=== PATIENT | female | born 1945 | race Caucasian/White ===

== ENCOUNTER 2016-09-23 18:02 | Observation (INO) | payer MEDICARE, MEDICAID ==
[2016-09-23 18:52] LABS: Hematocrit 44 % (35-47); Hemoglobin 14.1 g/dl (12.0-16.0); Mean Corpuscular HGB Conc 32 g/dl (31-36); Mean Corpuscular Hemoglobin 27 pg (27-31); Mean Corpuscular Volume 83 fL (80-97); Mean Platelet Volume 9 um3 (7.4-10.4); Red Blood Count 5.31 10^6/ul (4.0-5.4); Red Cell Distribution Width 15 % (10.5-15); White Blood Count 16.6 10^3/ul (3.5-10.8)
[2016-09-23] MEDS ORDERED: NS 0.9% 1000 ML* 1,000 ML IV ONE ×2 (18:52→22:34)
[2016-09-23] MEDS ORDERED: Ondansetron INJ* 2 MG/ML VIAL IV ONE ×2 (18:52→20:06)
[2016-09-23 19:07] LABS: ALT 15 U/L (7-52); AST 20 U/L (13-39); Albumin 3.6 g/dL (3.2-5.2); Alkaline Phosphatase 156 U/L (34-104); Anion Gap 6 mmol/L (2-11); BUN/Creatinine Ratio 14.3 (8-20); Blood Urea Nitrogen 11 mg/dL (6-24); C Reactive Protein 4.49 mg/L (< 5.00); CO2 Carbon Dioxide 24 mmol/L (22-32); Calcium 9.3 mg/dL (8.6-10.3); Chloride 106 mmol/L (101-111); EGFR African American 94.5 (>60); EGFR Non-African American 73.5 (>60); Globulin 3.3 g/dL (2-4); Glucose 132 mg/dL (70-100); Lipase < 10 U/L (11.0-82.0); Potassium 4.1 mmol/L (3.5-5.0); Sodium 136 mmol/L (133-145); Total Protein 6.9 g/dL (6.4-8.9)
[2016-09-23 19:09] LABS: Troponin I 0.01 ng/mL (<0.04)
[2016-09-23] MEDS ORDERED: Iodixanol* (CONTRAST) 320 MG/ML 100 ML SDV IV ONE (19:47)
[2016-09-23] MEDS ORDERED: Morphine INJ* 4 MG/ML 1 ML CARPUJECT IV ONE ×3 (20:06→22:42)
--- NOTE | 2016-09-23 22:00 | RAD ---
INDICATION: Diffuse abdominal and RIGHT lower quadrant pain. Vomiting. Post cholecystectomy and appendectomy. Post hysterectomy. COMPARISON: June 16, 2015 CT. TECHNIQUE: Multidetector CT images were obtained from the lung bases to the ischial tuberosities with 100 mL Visipaque 320 IV and oral contrast. Multiplanar reformation. REPORT: Minimal basilar subsegmental atelectasis. Cardiomegaly. Diffuse decreased density of the liver consistent with fatty infiltration. No focal hepatic lesion or biliary dilatation. Post cholecystectomy. Advanced fatty replacement of the pancreas. No focal pancreatic lesion, duct dilatation, or inflammatory change. Small splenule inferior to the unremarkable dominant spleen. Negative for CT abnormality of the upper GI or small bowel. Post appendectomy. Moderately severe diverticulosis of the colon most prominent at the proximal sigmoid colon. Negative for acute diverticulitis. Negative for ascites, free air, or significant hernia. Normal adrenal glands. Small cortical cyst mid pole RIGHT kidney. No suspicious renal lesions or hydronephrosis. Symmetric renal contrast excretion. Unremarkable ureters and urinary bladder. Post hysterectomy. Unremarkable adnexal regions. Negative for lymphadenopathy. Atherosclerotic plaque results in approximate 30% short segment stenosis at the proximal LEFT common iliac artery. Negative for aortoiliac aneurysm. Physiologic distention of the IVC. Negative for suspicious osseous lesions. L4-L5 and L5-S1 annular disc bulges noted. IMPRESSION: 1. Fatty infiltration of the liver and advanced fatty replacement of the pancreas. 2. Moderately severe diverticulosis of the colon most prominent at the proximal sigmoid colon. Negative for acute diverticulitis. 3. Negative for obstructive uropathy.
--- NOTE | 2016-09-23 23:08 | ED ---
Roger Mason Erika, scribed for Ap Dennis MD on 09/23/16 at 1919 . Abdominal Pain/Female - HPI Summary HPI Summary: Patient is a 71-year-old female presenting to the ED with a CC of abdominal pain starting at 15:00 today. Pt reports intermittent diffuse abdominal pain, which now has begun to radiate to her back. She rates a pain a 10/10 at its worst, improved currently. Pt reports she has had a BM today before 15:00, and states she has been passing gas since after 15:00. Associated symptoms include vomiting also starting at 15:00. Pt also reports left pedal edema, which is new. Pt denies fever, chills, and lightheadedness. Hx PE, DVT a long time ago - pt takes a blood thinner. Denies Hx CHF. PSHx cholecystectomy, appendectomy. Denies PSHx . - History of Current Complaint Chief Complaint: EDAbdPain Stated Complaint: ABD PAIN Time Seen by Provider: 09/23/16 18:31 Hx Obtained From: Patient Onset/Duration: Lasting Hours, Still Present Timing: Minutes Severity Currently: Moderate Pain Intensity: 10 - at worst Pain Scale Used: 0-10 Numeric Location: Diffuse Radiates: Yes Radiates to: Back Aggravating Factor(s): Nothing Alleviating Factor(s): Nothing Associated Signs and Symptoms: Positive: Nausea, Vomiting. Negative: Fever Allergies/Adverse Reactions: Allergies Allergy/AdvReac Type Severity Reaction Status Date / Time Metoclopramide [From Reglan] Allergy Severe Shortness Verified 09/24/15 10:50 of Breath Celecoxib [From Celebrex] Allergy Intermediate Rash Verified 09/24/15 10:50 Cephalexin [From Keflex] Allergy Intermediate Rash Verified 09/24/15 10:50 Ciprofloxacin [From Cipro] Allergy Intermediate Rash Verified 09/24/15 10:50 Aspirin Allergy Unknown Verified 09/24/15 10:50 Reaction Details Ceftriaxone [From Rocephin] AdvReac Intermediate PALPITATIONS, Verified 10:50 HALLUCINATION PMH/Surg Hx/FS Hx/Imm Hx Endocrine/Hematology History: Reports: Hx Diabetes - no meds-diet controlled Denies: Hx Anticoagulant Therapy, Hx Systemic Lupus Erythematosus, Hx Thyroid Disease, Hx Anemia Cardiovascular History: Reports: Hx Hypercholesterolemia Denies: Hx Aneurysm, Hx Angina, Hx Auto Implanted Cardiovert Defib, Hx Congestive Heart Failure, Hx Hypertension, Hx Pacemaker/ICD, Other Cardiovascular Problems/Disorders Respiratory History: Reports: Hx Asthma - environmental allergies, Hx Pulmonary Embolism, Hx Seasonal Allergies Denies: Hx Chronic Obstructive Pulmonary Disease (COPD), Hx Sleep Apnea GI History: Reports: Hx Gall Bladder Disease, Hx Gastroesophageal Reflux Disease Denies: Hx Cirrhosis, Hx Crohn's Disease, Hx Diverticulosis, Hx Irritable Bowel, Hx Ulcer History: Reports: Hx Renal Disease, Other Problems/Disorders - renal disease Denies: Hx Kidney Infection, Hx Kidney Stones Musculoskeletal History: Reports: Hx Arthritis, Hx Osteoporosis - 11/01/12 Denies: Hx Gout Sensory History: Reports: Hx Contacts or Glasses Denies: Hx Deafness, Hx Hearing Aid Opthamlomology History: Reports: Hx Contacts or Glasses Neurological History: Reports: Hx Migraine, Other Neuro Impairments/Disorders - migraines Denies: Hx Dementia, Hx Seizures Psychiatric History: Denies: Hx Anxiety, Hx Eating Disorder, Hx Depression, Hx Schizophrenia, Hx Suicide Attempt, Hx Substance Abuse - Surgical History Surgery Procedure, Year, and Place: hysterectomy, rt breast biopsy, cholecystectomy, appendectomy Hx Anesthesia Reactions: No - Immunization History Date of Tetanus Vaccine: Unk Date of Influenza Vaccine: 05/26 Infectious Disease History: No Infectious Disease History: Denies: Hx Hepatitis, Hx Human Immunodeficiency Virus (HIV), Hx Tuberculosis , Traveled Outside the [place] in Last 30 Days - Family History Family History: Denies FHx breast cancer - Social History Alcohol Use: None Hx Substance Use: No Substance Use Type: Reports: None Hx Tobacco Use: Yes Smoking Status (MU): Former Smoker Review of Systems Negative: Fever, Chills Positive: Abdominal Pain, Vomiting Positive: Edema - left All Other Systems Reviewed And Are Negative: Yes Physical Exam Triage Information Reviewed: Yes Vital Signs On Initial Exam: Initial Vitals Temp Pulse Resp BP Pulse Ox 97.6 F 106 20 149/81 96 09/23/16 18:05 09/23/16 18:05 09/23/16 18:05 09/23/16 18:05 09/23/16 18:05 Vital Signs Reviewed: Yes Appearance: Positive: Well-Appearing, No Pain Distress Skin: Positive: Warm, Skin Color Reflects Adequate Perfusion, Dry Head/Face: Positive: Normal Head/Face Inspection Eyes: Positive: EOMI, [place] ENT: Positive: Normal ENT inspection Neck: Positive: Supple, Nontender Respiratory/Lung Sounds: Positive: Clear to Auscultation, Breath Sounds Present Cardiovascular: Positive: Tachycardia - at 106 bpm on triage Abdomen Description: Positive: Soft, Other: - Diffuse abdominal tenderness Bowel Sounds: Positive: Hypoactive Musculoskeletal: Positive: Strength/ROM Intact, Other - Pedal edema worse on the left Neurological: Positive: Normal, Sensory/Motor Intact, Alert, Oriented to Person Place, Time Psychiatric: Positive: Affect/Mood Appropriate - Martina Coma Scale Coma Scale Total: 15 Diagnostics - Vital Signs Vital Signs Temp Pulse Resp BP Pulse Ox 09/23/16 18:05 97.6 F 106 20 149/81 96 - Laboratory Lab Results: Lab Results 09/23/16 09/23/16 09/23/16 Range/Units 18:30 18:30 18:30 WBC 16.6 H (3.5-10.8) 10^3/ul RBC 5.31 (4.0-5.4) 10^6/ul Hgb 14.1 (12.0-16.0) g/dl Hct 44 (35-47) % MCV 83 (80-97) fL MCH 27 (27-31) pg MCHC 32 (31-36) g/dl RDW 15 (10.5-15) % Plt Count 213 (150-450) 10^3/ul MPV 9 (7.4-10.4) um3 Neut % (Auto) 87.6 H (38-83) % Lymph % (Auto) 7.0 L (25-47) % [place] % (Auto) 4.8 (1-9) % Eos % (Auto) 0.3 (0-6) % Baso % (Auto) 0.3 (0-2) % Absolute Neuts (auto) 14.5 H (1.5-7.7) 10^3/ul Absolute Lymphs (auto) 1.2 (1.0-4.8) 10^3/ul Absolute Monos (auto) 0.8 (0-0.8) 10^3/ul Absolute Eos (auto) 0 (0-0.6) 10^3/ul Absolute Basos (auto) 0.1 (0-0.2) 10^3/ul Absolute Nucleated RBC 0 10^3/ul Nucleated RBC % 0 INR (Anticoag Therapy) 1.51 H (0.89-1.11) APTT 32.5 (26.0-36.3) seconds Sodium 136 (133-145) mmol/L Potassium 4.1 (3.5-5.0) mmol/L Chloride 106 (101-111) mmol/L Carbon Dioxide 24 (22-32) mmol/L Anion Gap 6 (2-11) mmol/L BUN 11 (6-24) mg/dL Creatinine 0.77 (0.51-0.95) mg/dL Est GFR ( Amer) 94.5 (>60) Est GFR (Non-Af Amer) 73.5 (>60) BUN/Creatinine Ratio 14.3 (8-20) Glucose 132 H (70-100) mg/dL Lactic Acid (0.5-2.0) mmol/L Calcium 9.3 (8.6-10.3) mg/dL Total Bilirubin 0.50 (0.2-1.0) mg/dL AST 20 (13-39) U/L ALT 15 (7-52) U/L Alkaline Phosphatase 156 H (34-104) U/L Troponin I 0.01 (<0.04) ng/mL C-Reactive Protein 4.49 (< 5.00) mg/L B-Natriuretic Peptide ( - 100) pg/mL Total Protein 6.9 (6.4-8.9) g/dL Albumin 3.6 (3.2-5.2) g/dL Globulin 3.3 (2-4) g/dL Albumin/Globulin Ratio 1.1 (1-3) Lipase < 10 L (11.0-82.0) U/L 09/23/16 09/23/16 Range/Units 18:30 18:30 WBC (3.5-10.8) 10^3/ul RBC (4.0-5.4) 10^6/ul Hgb (12.0-16.0) g/dl Hct (35-47) % MCV (80-97) fL MCH (27-31) pg MCHC (31-36) g/dl RDW (10.5-15) % Plt Count (150-450) 10^3/ul MPV (7.4-10.4) um3 Neut % (Auto) (38-83) % Lymph % (Auto) (25-47) % [place] % (Auto) (1-9) % Eos % (Auto) (0-6) % Baso % (Auto) (0-2) % Absolute Neuts (auto) (1.5-7.7) 10^3/ul Absolute Lymphs (auto) (1.0-4.8) 10^3/ul Absolute Monos (auto) (0-0.8) 10^3/ul Absolute Eos (auto) (0-0.6) 10^3/ul Absolute Basos (auto) (0-0.2) 10^3/ul Absolute Nucleated RBC 10^3/ul Nucleated RBC % INR (Anticoag Therapy) (0.89-1.11) APTT (26.0-36.3) seconds Sodium (133-145) mmol/L Potassium (3.5-5.0) mmol/L Chloride (101-111) mmol/L Carbon Dioxide (22-32) mmol/L Anion Gap (2-11) mmol/L BUN (6-24) mg/dL Creatinine (0.51-0.95) mg/dL Est GFR ( Amer) (>60) Est GFR (Non-Af Amer) (>60) BUN/Creatinine Ratio (8-20) Glucose (70-100) mg/dL Lactic Acid 1.0 (0.5-2.0) mmol/L Calcium (8.6-10.3) mg/dL Total Bilirubin (0.2-1.0) mg/dL AST (13-39) U/L ALT (7-52) U/L Alkaline Phosphatase (34-104) U/L Troponin I (<0.04) ng/mL C-Reactive Protein (< 5.00) mg/L B-Natriuretic Peptide 19 ( - 100) pg/mL Total Protein (6.4-8.9) g/dL Albumin (3.2-5.2) g/dL Globulin (2-4) g/dL Albumin/Globulin Ratio (1-3) Lipase (11.0-82.0) U/L Result Diagrams: 09/23/16 18:30 09/23/16 18:30 Lab Statement: Any lab studies that have been ordered have been reviewed, and results considered in the medical decision making process. - CT CT A/P W/ CT Interpretation Completed By: Radiologist - IMPRESSION: 1. Fatty infiltration of the liver and advanced fatty replacement of the pancreas. 2. Moderately severe diverticulosis of the colon most prominent at the proximal sigmoid colon. Negative for acute diverticulitis. 3. Negative for obstructive uropathy. Abdominal Pain Fem Course/Dx - Course Course Of Treatment: ABDOMINAL PAIN CONTINUES AFTER SEVERAL DOSES OF IV PAIN MEDICATIONS IN ED. DISCUSSED RESULTS WITH PATIENT. ADMIT HOSPITALIST STABLE. - Diagnoses Provider Diagnoses: Abdominal pain Discharge - Discharge Plan Condition: Stable Disposition: ADMITTED TO [facility] Referrals: Ap Meredith MD [Primary Care Provider] - The documentation as recorded by the Roger beavers Erika accurately reflects the service I personally performed and the decisions made by , Ap Dennis MD.
[2016-09-23 23:27] LABS: Urine Bacteria Absent (Absent); Urine Bilirubin Negative (Negative); Urine Glucose Negative (Negative); Urine Nitrite Negative (Negative)
[2016-09-24] MEDS ORDERED: Ondansetron INJ* 2 MG/ML VIAL IV PRN (01:22)
[2016-09-24] MEDS ORDERED: NS 0.9% 1000 ML* 1,000 ML IV SCH (01:30)
[2016-09-24] MEDS ORDERED: Piperac/Tazob 3.375 gm in NS* 3.375 GM/100 ML BAG IVPB ONE (01:30)
[2016-09-24] MEDS: Morphine INJ* 2 MG/ML 1 ML CARPUJECT IV PRN ×3 (01:42→15:53)
[2016-09-24] MEDS ORDERED: Heparin VIAL(*) 5000 UNITS/ML VIAL (FIVE THOUSAND) SUBCUT SCH (06:00)
[2016-09-24] MEDS: Piperac/Tazob 3.375 gm in NS* 3.375 GM/100 ML BAG IVPB SCH ×3 (06:14→21:38)
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
[2016-09-24] MEDS: Acetaminophen TAB* 325 MG PO PRN (12:31)
[2016-09-24] MEDS ORDERED: Magnesium Hydroxide LIQ* 30 ML UDC PO ONE (12:43)
--- NOTE | 2016-09-24 12:49 | PN ---
Subjective Date of Service: 09/24/16 Interval History: pt c/o mild abd "soreness"- diffuse. for the past 3 days has had daily BM's , but small and hard and justifies it with "but I'm not eating that much". Had breakfast , but vomited eggs-subsequently had no problems finishing up her meal. stated that "sometimes things don't agree with my stomach". Vague historian Objective Active Medications: Acetaminophen (Tylenol Tab*) 650 mg PO Q4H PRN PRN Reason: FEVER/PAIN Last Admin: 09/24/16 12:31 Dose: 650 mg Amitriptyline HCl (Elavil Tab*) 75 mg PO BEDTIME ROSEANNA Docusate Sodium (Colace Cap*) 100 mg PO BID ROSEANNA Piperacillin Sod/Tazobactam Sod (Zosyn 3.375 Gm In Ns Premix*) 3.375 gm in 100 mls @ 25 mls/hr IVPB Q8H ROSEANNA Last Admin: 09/24/16 06:14 Dose: 25 mls/hr Magnesium Hydroxide (Milk Of Magntree Liq*) 30 ml PO ONCE ONE Stop: 09/24/16 12:44 Morphine Sulfate (Morphine Inj (Syringe)*) 2 mg IV Q2H PRN PRN Reason: PAIN Last Admin: 09/24/16 04:27 Dose: 2 mg Ondansetron HCl (Zofran Inj*) 4 mg IV Q4H PRN PRN Reason: NAUSEA Last Admin: 09/24/16 01:42 Dose: 4 mg Rivaroxaban (Xarelto (*)) 20 mg PO DAILY [facility] Vital Signs 09/24/16 09/24/16 09/24/16 02:00 04:27 05:25 Temperature Pulse Rate 94 Respiratory 20 18 Rate Blood Pressure 128/57 (mmHg) O2 Sat by Pulse 93 Oximetry 09/24/16 09/24/16 09/24/16 05:28 05:30 07:23 Temperature 98.7 F 97.7 F Pulse Rate 89 92 Respiratory 18 18 17 Rate Blood Pressure 129/62 121/64 (mmHg) O2 Sat by Pulse 96 96 Oximetry 09/24/16 08:00 Temperature Pulse Rate Respiratory 14 Rate Blood Pressure (mmHg) O2 Sat by Pulse Oximetry Oxygen Devices in Use Now: None Appearance: 71 obsese F in nAD, aAOx3 Eyes: No Scleral Icterus, PERRLA Ears/Nose/Mouth/Throat: NL Teeth, Lips, Gums, Mucous Membranes Moist Neck: NL Appearance and Movements; NL JVP, Trachea Midline Respiratory: Symmetrical Chest Expansion and Respiratory Effort, Clear to Auscultation Cardiovascular: NL Sounds; No Murmurs; No JVD, RRR Abdominal: - - mild diffuse tendereness, no rebound, no guarding, BS+ Lymphatic: No Cervical Adenopathy Extremities: No Edema, No Clubbing, Cyanosis Skin: No Rash or Ulcers, No Nodules or Sclerosis Neurological: Alert and Oriented x 3, NL Muscle Strength and Tone Result Diagrams: 09/23/16 18:30 09/23/16 18:30 Additional Lab and Data: Lab Results 09/23/16 09/23/16 09/23/16 Range/Units 18:30 18:30 18:30 WBC 16.6 H (3.5-10.8) 10^3/ul RBC 5.31 (4.0-5.4) 10^6/ul Hgb 14.1 (12.0-16.0) g/dl Hct 44 (35-47) % MCV 83 (80-97) fL MCH 27 (27-31) pg MCHC 32 (31-36) g/dl RDW 15 (10.5-15) % Plt Count 213 (150-450) 10^3/ul MPV 9 (7.4-10.4) um3 Neut % (Auto) 87.6 H (38-83) % Lymph % (Auto) 7.0 L (25-47) % [place] % (Auto) 4.8 (1-9) % Eos % (Auto) 0.3 (0-6) % Baso % (Auto) 0.3 (0-2) % Absolute Neuts (auto) 14.5 H (1.5-7.7) 10^3/ul Absolute Lymphs (auto) 1.2 (1.0-4.8) 10^3/ul Absolute Monos (auto) 0.8 (0-0.8) 10^3/ul Absolute Eos (auto) 0 (0-0.6) 10^3/ul Absolute Basos (auto) 0.1 (0-0.2) 10^3/ul Absolute Nucleated RBC 0 10^3/ul Nucleated RBC % 0 INR (Anticoag Therapy) 1.51 H (0.89-1.11) APTT 32.5 (26.0-36.3) seconds Sodium 136 (133-145) mmol/L Potassium 4.1 (3.5-5.0) mmol/L Chloride 106 (101-111) mmol/L Carbon Dioxide 24 (22-32) mmol/L Anion Gap 6 (2-11) mmol/L BUN 11 (6-24) mg/dL Creatinine 0.77 (0.51-0.95) mg/dL Est GFR ( Amer) 94.5 (>60) Est GFR (Non-Af Amer) 73.5 (>60) BUN/Creatinine Ratio 14.3 (8-20) Glucose 132 H (70-100) mg/dL Lactic Acid (0.5-2.0) mmol/L Calcium 9.3 (8.6-10.3) mg/dL Total Bilirubin 0.50 (0.2-1.0) mg/dL AST 20 (13-39) U/L ALT 15 (7-52) U/L Alkaline Phosphatase 156 H (34-104) U/L Troponin I 0.01 (<0.04) ng/mL C-Reactive Protein 4.49 (< 5.00) mg/L B-Natriuretic Peptide ( - 100) pg/mL Total Protein 6.9 (6.4-8.9) g/dL Albumin 3.6 (3.2-5.2) g/dL Globulin 3.3 (2-4) g/dL Albumin/Globulin Ratio 1.1 (1-3) Lipase < 10 L (11.0-82.0) U/L 09/23/16 09/23/16 Range/Units 18:30 18:30 WBC (3.5-10.8) 10^3/ul RBC (4.0-5.4) 10^6/ul Hgb (12.0-16.0) g/dl Hct (35-47) % MCV (80-97) fL MCH (27-31) pg MCHC (31-36) g/dl RDW (10.5-15) % Plt Count (150-450) 10^3/ul MPV (7.4-10.4) um3 Neut % (Auto) (38-83) % Lymph % (Auto) (25-47) % [place] % (Auto) (1-9) % Eos % (Auto) (0-6) % Baso % (Auto) (0-2) % Absolute Neuts (auto) (1.5-7.7) 10^3/ul Absolute Lymphs (auto) (1.0-4.8) 10^3/ul Absolute Monos (auto) (0-0.8) 10^3/ul Absolute Eos (auto) (0-0.6) 10^3/ul Absolute Basos (auto) (0-0.2) 10^3/ul Absolute Nucleated RBC 10^3/ul Nucleated RBC % INR (Anticoag Therapy) (0.89-1.11) APTT (26.0-36.3) seconds Sodium (133-145) mmol/L Potassium (3.5-5.0) mmol/L Chloride (101-111) mmol/L Carbon Dioxide (22-32) mmol/L Anion Gap (2-11) mmol/L BUN (6-24) mg/dL Creatinine (0.51-0.95) mg/dL Est GFR ( Amer) (>60) Est GFR (Non-Af Amer) (>60) BUN/Creatinine Ratio (8-20) Glucose (70-100) mg/dL Lactic Acid 1.0 (0.5-2.0) mmol/L Calcium (8.6-10.3) mg/dL Total Bilirubin (0.2-1.0) mg/dL AST (13-39) U/L ALT (7-52) U/L Alkaline Phosphatase (34-104) U/L Troponin I (<0.04) ng/mL C-Reactive Protein (< 5.00) mg/L B-Natriuretic Peptide 19 ( - 100) pg/mL Total Protein (6.4-8.9) g/dL Albumin (3.2-5.2) g/dL Globulin (2-4) g/dL Albumin/Globulin Ratio (1-3) Lipase (11.0-82.0) U/L Assess/Plan/Problems-Billing Assessment: 71 yo F with h/o DM- diet controlled and PE on Xarelto with abd pain and UTI. - Patient Problems (1) Abdominal pain Comment: CT shows diverticulosis, but no other abnormal indings. suspect due to consitpation will start colace and MOM (2) UTI (lower urinary tract infection) Comment: Met sepsis criteria at admission. Cont Zosyn awaiting cx results (3) Diabetes mellitus, type II Comment: Continue consistent carb diet. (4) DVT prophylaxis Comment: [place]
[2016-09-24] MEDS: Docusate CAP* 100 MG PO SCH ×2 (12:59→19:24)
[2016-09-24] MEDS ORDERED: Amitriptyline TAB* 25 MG PO SCH (21:00)
[2016-09-25] MEDS: Piperac/Tazob 3.375 gm in NS* 3.375 GM/100 ML BAG IVPB SCH (05:25)
[2016-09-25] MEDS: Acetaminophen TAB* 325 MG PO PRN (05:53)
[2016-09-25] MEDS: Morphine INJ* 2 MG/ML 1 ML CARPUJECT IV PRN (07:17)
[2016-09-25 07:43] LABS: Hematocrit 39 % (35-47); Hemoglobin 12.6 g/dl (12.0-16.0); Mean Corpuscular HGB Conc 32 g/dl (31-36); Mean Corpuscular Hemoglobin 27 pg (27-31); Mean Corpuscular Volume 83 fL (80-97); Mean Platelet Volume 9 um3 (7.4-10.4); Red Blood Count 4.73 10^6/ul (4.0-5.4); Red Cell Distribution Width 15 % (10.5-15); White Blood Count 8.7 10^3/ul (3.5-10.8)
[2016-09-25 07:46] VITALS: BP 114/90
[2016-09-25 08:59] LABS: ALT 15 U/L (7-52); Alkaline Phosphatase 133 U/L (34-104); BUN/Creatinine Ratio 13.9 (8-20); Blood Urea Nitrogen 10 mg/dL (6-24); CO2 Carbon Dioxide 24 mmol/L (22-32); Calcium 8.6 mg/dL (8.6-10.3); Chloride 107 mmol/L (101-111); EGFR African American 102.1 (>60); EGFR Non-African American 79.4 (>60); Globulin 2.4 g/dL (2-4); Glucose 104 mg/dL (70-100); Sodium 135 mmol/L (133-145); Total Protein 5.4 g/dL (6.4-8.9)
[2016-09-25] MEDS ORDERED: Rivaroxaban TAB(*) 20 MG TAB PO SCH (09:00)
[2016-09-25] MEDS: Docusate CAP* 100 MG PO SCH (09:20)
--- NOTE | 2016-09-26 00:10 | DS ---
DISCHARGE SUMMARY: DATE OF ADMISSION: 09/24/16 DATE OF DISCHARGE: 09/25/16 PRIMARY CARE PHYSICIAN: Dr. Meredith. DISCHARGE DIAGNOSES: Abdominal pain and systemic inflammatory response syndrome of further unidentified etiology, possibly due to constipation. SECONDARY DIAGNOSES: 1. Diabetes, type 2, diet controlled. 2. Hypertension. 3. Anxiety. 4. Depression. 5. Morbid obesity. 6. Hyperlipidemia. 7. Hysterectomy. 8. Cholecystectomy. 9. History of pulmonary embolism, on Xarelto. 10. History of posttraumatic stress disorder. MEDICATIONS: At discharge include; 1. Colace 100 mg p.o. b.i.d. 2. Levocetirizine 5 mg at bedtime p.r.n. 3. Amitriptyline 75 mg at bedtime. 4. Simvastatin 40 mg at bedtime. 5. Xarelto 20 mg daily. 6. Singulair 10 mg daily. LABORATORY DATA: On the day of discharge showed sodium of 135, potassium 4.0, chloride 107, carbon dioxide 24, BUN 10, creatinine 0.72. Liver function tests were unremarkable apart from a slight elevation in alkaline phosphatase of 133. CBC: White blood cell count of 8.7, hemoglobin of 12.6, hematocrit of 39, platelets 192. CT of the abdomen and pelvis impression: "Fatty infiltration of the liver and advanced fatty replacement of the pancreas." Moderately severe diverticulosis of the colon, most prominent of the proximal sigmoid colon. Negative for acute diverticulitis. The urine cultures were obtained and were negative at the time of discharge. PHYSICAL EXAMINATION: At the time discharge, blood pressure 114/90, heart rate of 77 and regular, respiratory rate of 20, oxygen saturation 98% on room air, temperature 97.5. General: The patient is a very pleasant 71-year-old obese female, who is in no acute distress, alert, awake, and oriented x3. HEENT: Head atraumatic, normocephalic. Eyes: Pupils are equal, reactive to light and accommodation. Oropharynx clear. Mucosa moist. Neck: Supple. No JVD. No bruits bilaterally. Cardiovascular: Regular rate and rhythm. No murmur. Respiratory: Clear to auscultation bilaterally. Abdomen: Soft, nontender. Bowel sounds are present in all 4 quadrants. Obese and protuberant. Extremities: There is trace bilateral pedal edema, left more than right. Neuro Evaluation: Speech is clear. Cranial nerves II through XII grossly intact. Motor strength is 5/5 bilaterally. HOSPITALIZATION COURSE: Ayla Pepper is 71-year-old female with a BMI of 40, who presents with generalized abdominal pain. Her urinalysis was abnormal and initially she screened positive for systemic inflammatory response syndrome. She was placed on observation with a diagnosis of possible urinary tract infection. She was placed on Zosyn. Eventually, her urine cultures were negative. Her pain resolved once she was treated with Zosyn. She had been afebrile throughout her hospital stay. The CT of the abdomen showed no evidence of abnormalities apart from severe diverticulosis. At this point, I suspect that the pain may have been related to constipation. The patient is going to be prescribed Colace at discharge. She is recommended a high-fiber diet. It does not appear that an antibiotic treatment is justified at discharge. The patient is recommended to follow up with Dr. Meredith in approximately 4 to 7 days. Please note this is a short summary of the patient's hospital stay. Please refer to further medical record for details. CC: Dr. Meredith * [id number]/[facility] #: [id number] MTDD
== END 2016-09-25 14:45 | disposition home or self-care (01) ==
LOC: ED 18:02 → INTOOBSV 09-24 01:43 → MED 09-24 01:43
PROVIDERS: ADMIT Internal Medicine; ATTEND Internal Medicine
DX: R10.9 Unspecified abdominal pain (principal); R65.10 Systemic inflammatory response syndrome (SIRS) of non-infectious origin without acute organ dysfunction; N39.0 Urinary tract infection, site not specified; E11.9 Type 2 diabetes mellitus without complications; Z86.711 Personal history of pulmonary embolism; Z79.01 Long term (current) use of anticoagulants; I10 Essential (primary) hypertension; K57.30 Diverticulosis of large intestine without perforation or abscess without bleeding; R60.9 Edema, unspecified; K76.0 Fatty (change of) liver, not elsewhere classified; E66.01 Morbid (severe) obesity due to excess calories; F32.9 Major depressive disorder, single episode, unspecified; F41.9 Anxiety disorder, unspecified; E78.5 Hyperlipidemia, unspecified; Z79.899 Other long term (current) drug therapy; Z88.1 Allergy status to other antibiotic agents; Z88.8 Allergy status to other drugs, medicaments and biological substances; Z88.6 Allergy status to analgesic agent
CPT/HCPCS: 36415; 74177; 80053; 81003; 81015; 83605; 83690; 83880; 84484; 85025; 85027; 85610; 85730; 86140; 87086; 96361; 96372; 96374; 96375; 96376; 99285; A9270-GY; G0378; J1644; J2270; J2405; J2543; Q9967

== ENCOUNTER 2016-12-04 23:22 | Emergency (ER) | payer MEDICARE, MEDICAID ==
[2016-12-05 00:30] LABS: ALT 18 U/L (7-52); Albumin 3.7 g/dL (3.2-5.2); Alkaline Phosphatase 164 U/L (34-104); BUN/Creatinine Ratio 15.6 (8-20); Blood Urea Nitrogen 12 mg/dL (6-24); C Reactive Protein 6.49 mg/L (< 5.00); CO2 Carbon Dioxide 24 mmol/L (22-32); Calcium 9.4 mg/dL (8.6-10.3); Chloride 105 mmol/L (101-111); EGFR African American 94.5 (>60); EGFR Non-African American 73.5 (>60); Globulin 3.3 g/dL (2-4); Glucose 137 mg/dL (70-100); Lipase < 10 U/L (11.0-82.0); Magnesium 2.1 mg/dL (1.9-2.7); Sodium 136 mmol/L (133-145)
[2016-12-05 00:31] LABS: Hematocrit 41 % (35-47); Hemoglobin 13.3 g/dl (12.0-16.0); Mean Corpuscular HGB Conc 32 g/dl (31-36); Mean Corpuscular Hemoglobin 27 pg (27-31); Mean Corpuscular Volume 83 fL (80-97); Mean Platelet Volume 9 um3 (7.4-10.4); Red Blood Count 4.97 10^6/ul (4.0-5.4); Red Cell Distribution Width 15 % (10.5-15); White Blood Count 10.6 10^3/ul (3.5-10.8)
--- NOTE | 2016-12-05 00:33 | ED ---
Lonnie Mason Billy, scribed for Simone Correa MD on 12/04/16 at 2352 . Complex/Multi-Sys Presentation - HPI Summary HPI Summary: Patient is a 71 y/o female coming to [facility] with complaint of sharp RUQ pain and right-sided jaw numbness since tonight at 2200. These symptoms started at rest. She also reports moderate SOB. PSHx of appendectomy and cholecystectomy. - History Of Current Complaint Chief Complaint: EDGeneral Time Seen by Provider: 12/04/16 23:32 Hx Obtained From: Patient Onset/Duration: Gradual Onset, Lasting Hours, Still Present Timing: Constant Severity Currently: Moderate Severity Initially: Moderate Location: Pain At: - RUQ Character: Sharp Aggravating Factor(s): n/a Alleviating Factor(s): n/a Associated Signs And Symptoms: Positive: SOB, Other - numbness face - Allergies/Home Medications Allergies/Adverse Reactions: Allergies Allergy/AdvReac Type Severity Reaction Status Date / Time Metoclopramide [From Reglan] Allergy Severe Shortness Verified 12/05/16 00:09 of Breath Celecoxib [From Celebrex] Allergy Intermediate Rash Verified 12/05/16 00:09 Cephalexin [From Keflex] Allergy Intermediate Rash Verified 12/05/16 00:09 Ciprofloxacin [From Cipro] Allergy Intermediate Rash Verified 12/05/16 00:09 Aspirin Allergy Unknown Verified 12/05/16 00:09 Reaction Details Ceftriaxone [From Rocephin] AdvReac Intermediate PALPITATIONS, Verified 00:09 HALLUCINATION PMH/Surg Hx/FS Hx/Imm Hx Endocrine/Hematology History: Denies: Hx Anticoagulant Therapy, Hx Diabetes, Hx Systemic Lupus Erythematosus, Hx Thyroid Disease, Hx Anemia Cardiovascular History: Reports: Hx Deep Vein Thrombosis, Hx Hypercholesterolemia Denies: Hx Aneurysm, Hx Angina, Hx Auto Implanted Cardiovert Defib, Hx Congestive Heart Failure, Hx Hypertension, Hx Pacemaker/ICD, Other Cardiovascular Problems/Disorders Respiratory History: Reports: Hx Asthma - environmental allergies, Hx Pulmonary Embolism, Hx Seasonal Allergies Denies: Hx Chronic Obstructive Pulmonary Disease (COPD), Hx Sleep Apnea GI History: Reports: Hx Gall Bladder Disease, Hx Gastroesophageal Reflux Disease Denies: Hx Cirrhosis, Hx Crohn's Disease, Hx Diverticulosis, Hx Irritable Bowel, Hx Ulcer History: Reports: Hx Renal Disease, Other Problems/Disorders - renal disease Denies: Hx Kidney Infection, Hx Kidney Stones Musculoskeletal History: Reports: Hx Arthritis, Hx Osteoporosis - 11/01/12 Denies: Hx Gout Sensory History: Reports: Hx Contacts or Glasses Denies: Hx Deafness, Hx Hearing Aid Opthamlomology History: Reports: Hx Contacts or Glasses Neurological History: Reports: Hx Migraine, Other Neuro Impairments/Disorders - migraines Denies: Hx Dementia, Hx Seizures Psychiatric History: Denies: Hx Anxiety, Hx Eating Disorder, Hx Depression, Hx Panic Disorder, Hx Schizophrenia, Hx Suicide Attempt, Hx Substance Abuse - Surgical History Surgery Procedure, Year, and Place: hysterectomy, rt breast biopsy, cholecystectomy, appendectomy Hx Anesthesia Reactions: No - Immunization History Date of Tetanus Vaccine: Unk Date of Influenza Vaccine: 05/26 Infectious Disease History: No Infectious Disease History: Denies: Hx Hepatitis, Hx Human Immunodeficiency Virus (HIV), Hx Tuberculosis , Traveled Outside the [place] in Last 30 Days - Family History Known Family History: Positive: Cardiac Disease, Hypertension Family History: Denies FHx breast cancer - Social History Alcohol Use: None Hx Substance Use: No Substance Use Type: Reports: None Hx Tobacco Use: Yes Smoking Status (MU): Former Smoker Review of Systems Positive: Shortness Of Breath Positive: Abdominal Pain Positive: Numbness All Other Systems Reviewed And Are Negative: Yes Physical Exam Triage Information Reviewed: Yes Vital Signs On Initial Exam: Initial Vitals Temp Pulse Resp BP Pulse Ox 97.6 F 95 12 137/62 96 12/04/16 23:35 12/04/16 23:35 12/04/16 23:35 12/04/16 23:35 12/04/16 23:35 Vital Signs Reviewed: Yes Appearance: Positive: Well-Appearing, No Pain Distress Skin: Positive: Warm Eyes: Positive: CHAPARRITA ENT: Positive: Hearing grossly normal Neck: Positive: Supple Respiratory/Lung Sounds: Positive: Clear to Auscultation, Breath Sounds Present Cardiovascular: Positive: RRR Abdomen Description: Positive: Nontender, Soft Bowel Sounds: Positive: Present Musculoskeletal: Positive: Strength/ROM Intact Neurological: Positive: Sensory/Motor Intact, Alert, Oriented to Person Place, Time Psychiatric: Positive: Affect/Mood Appropriate Diagnostics - Vital Signs Vital Signs Temp Pulse Resp BP Pulse Ox 12/04/16 23:35 97.6 F 95 12 137/62 96 - Laboratory Lab Results: Lab Results 12/04/16 12/04/16 12/04/16 Range/Units 23:55 23:55 23:55 WBC 10.6 (3.5-10.8) 10^3/ul RBC 4.97 (4.0-5.4) 10^6/ul Hgb 13.3 (12.0-16.0) g/dl Hct 41 (35-47) % MCV 83 (80-97) fL MCH 27 (27-31) pg MCHC 32 (31-36) g/dl RDW 15 (10.5-15) % Plt Count 225 (150-450) 10^3/ul MPV 9 (7.4-10.4) um3 Neut % (Auto) 70.1 (38-83) % Lymph % (Auto) 21.6 L (25-47) % Garvin % (Auto) 7.1 (1-9) % Eos % (Auto) 0.8 (0-6) % Baso % (Auto) 0.4 (0-2) % Absolute Neuts (auto) 7.4 (1.5-7.7) 10^3/ul Absolute Lymphs (auto) 2.3 (1.0-4.8) 10^3/ul Absolute Monos (auto) 0.8 (0-0.8) 10^3/ul Absolute Eos (auto) 0.1 (0-0.6) 10^3/ul Absolute Basos (auto) 0 (0-0.2) 10^3/ul Absolute Nucleated RBC 0.01 10^3/ul Nucleated RBC % 0 Sodium 136 (133-145) mmol/L Potassium Pending Chloride 105 (101-111) mmol/L Carbon Dioxide 24 (22-32) mmol/L Anion Gap Pending BUN 12 (6-24) mg/dL Creatinine 0.77 (0.51-0.95) mg/dL Est GFR ( Amer) 94.5 (>60) Est GFR (Non-Af Amer) 73.5 (>60) BUN/Creatinine Ratio 15.6 (8-20) Glucose 137 H (70-100) mg/dL Lactic Acid 1.0 (0.5-2.0) mmol/L Calcium 9.4 (8.6-10.3) mg/dL Magnesium 2.1 (1.9-2.7) mg/dL Total Bilirubin 0.40 (0.2-1.0) mg/dL AST Pending ALT 18 (7-52) U/L Alkaline Phosphatase 164 H (34-104) U/L C-Reactive Protein 6.49 H (< 5.00) mg/L Total Protein 7.0 (6.4-8.9) g/dL Albumin 3.7 (3.2-5.2) g/dL Globulin 3.3 (2-4) g/dL Albumin/Globulin Ratio 1.1 (1-3) Lipase < 10 L (11.0-82.0) U/L Result Diagrams: 12/04/16 23:55 12/04/16 23:55 Lab Statement: Any lab studies that have been ordered have been reviewed, and results considered in the medical decision making process. Re-Evaluation - Re-Evaluation First Eval Re-Evaluation Time: 06:06 - results d/w pt. pain free Change: Improved Complex Multi-Symp Course/Dx - Diagnoses Provider Diagnoses: Chest pain, Abdominal pain Discharge - Discharge Plan Condition: Stable Disposition: HOME Patient Education Materials: Chest Pain (ED), Abdominal Pain (ED) Referrals: Ap Meredith MD [Primary Care Provider] - The documentation as recorded by the Lonnie beavers Billy accurately reflects the service I personally performed and the decisions made by , Simone Correa MD.
[2016-12-05 00:37] LABS: AST 21 U/L (13-39); Anion Gap 7 mmol/L (2-11); Potassium 4.1 mmol/L (3.5-5.0)
[2016-12-05 02:09] LABS: Troponin I 0.01 ng/mL (<0.04)
[2016-12-05 03:43] VITALS: BP 113/72
== END 2016-12-05 06:11 | disposition home or self-care (01) ==
LOC: ED 23:22
DX: R10.11 Right upper quadrant pain (principal); R06.02 Shortness of breath; R07.9 Chest pain, unspecified; Z87.891 Personal history of nicotine dependence
CPT/HCPCS: 36415; 80053; 83605; 83690; 83735; 84484; 85025; 86140; 99285

== ENCOUNTER 2017-05-30 22:36 | Emergency (ER) | payer MEDICARE, MEDICAID ==
--- NOTE | 2017-05-31 02:08 | ED ---
Adult Trauma - HPI Summary HPI Summary: 72F presents with facial injury and knee and shoulder pain s/p fall. She states she was going to her phone as it was ringing and she had a mechanical fall and landed on her right knee and shoulder and face. denies any loc. is on plavix. no nausea or vomiting. has minimal neck pain. denies any chest pain, SOB , or dizziness. has full ROM of neck with minimal tenderness. no UTI symptoms. did not take anything for pain and minimal pain now. - History of Current Complaint Chief Complaint: EDFacialInjury Stated Complaint: FALL Time Seen by Provider: 05/30/17 23:58 Pain Intensity: 6 - Additional Pertinent History Primary Care Physician: [id number] - Allergy/Home Medications Allergies/Adverse Reactions: Allergies Allergy/AdvReac Type Severity Reaction Status Date / Time Metoclopramide [From Reglan] Allergy Severe Shortness Verified 12/05/16 00:09 of Breath Celecoxib [From Celebrex] Allergy Intermediate Rash Verified 12/05/16 00:09 Cephalexin [From Keflex] Allergy Intermediate Rash Verified 12/05/16 00:09 Ciprofloxacin [From Cipro] Allergy Intermediate Rash Verified 12/05/16 00:09 Aspirin Allergy Unknown Verified 12/05/16 00:09 Reaction Details Ceftriaxone [From Rocephin] AdvReac Intermediate PALPITATIONS, Verified 00:09 HALLUCINATION PMH/Surg Hx/FS Hx/Imm Hx Endocrine/Hematology History: Reports: Hx Anticoagulant Therapy Denies: Hx Diabetes, Hx Systemic Lupus Erythematosus, Hx Thyroid Disease, Hx Anemia Cardiovascular History: Reports: Hx Deep Vein Thrombosis, Hx Hypercholesterolemia Denies: Hx Aneurysm, Hx Angina, Hx Auto Implanted Cardiovert Defib, Hx Congestive Heart Failure, Hx Hypertension, Hx Pacemaker/ICD, Other Cardiovascular Problems/Disorders Respiratory History: Reports: Hx Asthma - environmental allergies, Hx Pulmonary Embolism, Hx Seasonal Allergies Denies: Hx Chronic Obstructive Pulmonary Disease (COPD), Hx Sleep Apnea GI History: Reports: Hx Gall Bladder Disease, Hx Gastroesophageal Reflux Disease Denies: Hx Cirrhosis, Hx Crohn's Disease, Hx Diverticulosis, Hx Irritable Bowel, Hx Ulcer History: Reports: Hx Renal Disease, Other Problems/Disorders - renal disease Denies: Hx Kidney Infection, Hx Kidney Stones Musculoskeletal History: Reports: Hx Arthritis, Hx Osteoporosis - 11/01/12 Denies: Hx Gout Sensory History: Reports: Hx Contacts or Glasses Denies: Hx Deafness, Hx Hearing Aid Opthamlomology History: Reports: Hx Contacts or Glasses Neurological History: Reports: Hx Migraine, Other Neuro Impairments/Disorders - migraines Denies: Hx Dementia, Hx Seizures Psychiatric History: Denies: Hx Anxiety, Hx Eating Disorder, Hx Depression, Hx Panic Disorder, Hx Schizophrenia, Hx Suicide Attempt, Hx Substance Abuse - Surgical History Surgery Procedure, Year, and Place: hysterectomy, rt breast biopsy, cholecystectomy, appendectomy Hx Anesthesia Reactions: No - Immunization History Date of Tetanus Vaccine: Unk Date of Influenza Vaccine: 05/26 Infectious Disease History: No Infectious Disease History: Denies: Hx Hepatitis, Hx Human Immunodeficiency Virus (HIV), Hx Tuberculosis , Traveled Outside the [place] in Last 30 Days - Family History Known Family History: Positive: Cardiac Disease, Hypertension Family History: Denies FHx breast cancer - Social History Alcohol Use: None Hx Substance Use: No Substance Use Type: Reports: None Hx Tobacco Use: Yes Smoking Status (MU): Former Smoker Review of Systems Negative: Fever Positive: Other - nasal contusion Negative: Chest Pain Negative: Shortness Of Breath Negative: Abdominal Pain Positive: Myalgia - knee right and bilateral shoulder All Other Systems Reviewed And Are Negative: Yes Physical Exam Triage Information Reviewed: Yes Vital Signs On Initial Exam: Initial Vitals Temp Pulse Resp BP Pulse Ox 97.6 F 102 18 121/64 93 05/30/17 22:40 05/30/17 22:40 05/30/17 22:40 05/30/17 22:40 05/30/17 22:40 Vital Signs Reviewed: Yes Appearance: Positive: Well-Appearing Skin: Positive: Warm, Dry, Other - contusion to left side of nose Head/Face: Positive: Normal Head/Face Inspection, Other - no step off, racoon eyes, barajas sign Eyes: Positive: Normal, EOMI, CHAPARRITA, Conjunctiva Clear ENT: Positive: Normal ENT inspection, Pharynx normal, TMs normal Respiratory/Lung Sounds: Positive: Clear to Auscultation, Breath Sounds Present Cardiovascular: Positive: Normal, RRR Abdomen Description: Positive: Nontender, Soft Bowel Sounds: Positive: Present Musculoskeletal: Positive: Strength/ROM Intact - shoulder and knee with pain, Other - good pulses, tender over bilateral shoulder with right worst than left and right knee Neurological: Positive: Sensory/Motor Intact, Alert, Oriented to Person Place, Time, CN Intact II-III - [place] Coma Scale Best Eye Response: 4 - Spontaneous Best Motor Response: 6 - Obeys Commands Best Verbal Response: 5 - Oriented Coma Scale Total: 15 Diagnostics - Vital Signs Vital Signs Temp Pulse Resp BP Pulse Ox 05/31/17 01:00 93 92 05/31/17 00:30 95 130/75 93 05/31/17 00:00 98 119/68 93 05/30/17 23:57 97 92 05/30/17 23:56 123/60 05/30/17 23:55 96 14 118/64 92 05/30/17 22:40 97.6 F 102 18 121/64 93 - Laboratory Lab Statement: Any lab studies that have been ordered have been reviewed, and results considered in the medical decision making process. - Radiology shoulder bilateral Xray Interpretation: No Acute Changes Radiology Interpretation Completed By: ED Physician knee Xray Interpretation: No Acute Changes Radiology Interpretation Completed By: ED Physician - CT head, neck, maxillary CT Interpretation: No Acute Changes - no fracture CT Interpretation Completed By: Radiologist Adult Trauma Course/Dx - Course Course Of Treatment: 72F presents with facial injury and knee and shoulder pain s/p fall. She states she was going to her phone as it was ringing and she had a mechanical fall and landed on her right knee and shoulder and face. denies any loc. is on plavix. no nausea or vomiting. has minimal neck pain. denies any chest pain. SOB, or dizziness. has full ROM of neck with minimal tenderness. no UTI symptoms. on exam has contusion of nose noted. normal neuro exam. full ROM of shoulder and neck with pain. CT brain, neck, face normal. read xray shoulder and knee as normal. will treat with RICE. patient understands and agrees with plan. - Diagnoses Differential Diagnosis/HQI/PQRI: Positive: Abrasion(s), Contusion(s), Fracture Provider Diagnoses: Facial contusion, Head injury, Neck pain, Bilateral shoulder pain, Right knee pain Discharge - Discharge Plan Condition: Good Disposition: HOME Patient Education Materials: Contusion in Adults (ED) Referrals: Richard Hensley DO [Primary Care Provider] - Additional Instructions: Take Tylenol every 6 hours as needed for pain Apply ice, rest, elevate Follow up with primary care physician within 5 days Return to ED if develop any new or worsening symptoms
[2017-05-31 02:38] VITALS: BP 132/76
--- NOTE | 2017-05-31 08:07 | RAD ---
HISTORY: Neck and shoulder pain, fall COMPARISONS: January 04, 2013 TECHNIQUE: Multiple contiguous axial CT scans were obtained of the head without intravenous contrast. FINDINGS: HEMORRHAGE/INFARCT: There is no hemorrhage or acute infarct. MASSES/SHIFT: There is no mass or shift. EXTRA-AXIAL SPACES: There are no extra-axial fluid collections. SULCI AND VENTRICLES: The sulci and ventricles are normal in size and position for the patient's stated age. CEREBRUM: There are no focal parenchymal abnormalities. BRAINSTEM: There are no focal parenchymal abnormalities. CEREBELLUM: There are no focal parenchymal abnormalities. VESSELS: There is calcification of the cavernous segments of the internal carotid arteries bilaterally and of the distal vertebral arteries bilaterally. PARANASAL SINUSES: The paranasal sinuses are clear. ORBITS: The orbits are unremarkable. BONES AND SOFT TISSUE: No bone or soft tissue abnormalities are noted. OTHER: None IMPRESSION: NO ACUTE INTRACRANIAL PATHOLOGY.
--- NOTE | 2017-05-31 08:08 | RAD ---
HISTORY: Neck and shoulder pain, fall, facial trauma COMPARISONS: None TECHNIQUE: Multiple contiguous axial CT scans were obtained of the face without intravenous contrast, with coronal and sagittal multiplanar reformations. FINDINGS: BONES: There is no displaced fracture or dislocation. The orbital rim is intact. The zygomatic arch is intact. The pterygoid plates are intact. ORBITS: The globes are round. The optic nerves are symmetric. The extraocular musculature is normal. There is no post septal or intraconal inflammatory change. There is no retrobulbar hematoma. PARANASAL SINUSES: The paranasal sinuses are clear. BRAIN AND SOFT TISSUE: Unremarkable. OTHER: None. IMPRESSION: NO FACIAL FRACTURE
--- NOTE | 2017-05-31 08:09 | RAD ---
HISTORY: Right knee pain COMPARISONS: None VIEWS: 4, Frontal, lateral, axial, and oblique views of the right knee FINDINGS: BONE DENSITY: Normal. BONES: There is no displaced fracture. JOINTS: There is no arthropathy. There is chondrocalcinosis. ALIGNMENT: There is no dislocation. SOFT TISSUES: Unremarkable. OTHER FINDINGS: None. IMPRESSION: CHONDROCALCINOSIS. NO ACUTE OSSEOUS INJURY. IF SYMPTOMS PERSIST, RECOMMEND REPEAT IMAGING.
--- NOTE | 2017-05-31 08:11 | RAD ---
Indication: Neck pain after fall. CT of the cervical spine was obtained in the axial plane. Sagittal and coronal reconstructed images were obtained. The skull base demonstrates no evidence of fracture. Mastoid air cells are well aerated. The C1 ring is intact. No evidence of fracture Vertebral bodies appear normal in height and alignment. There is disc space narrowing at C4-C5 and C5-C6 with dorsal and ventral osteophyte formation. No central or foraminal stenosis is noted. At C6-C7 C7-T1 disc space is unremarkable. The lung apices demonstrate no focal nodules. No other fractures are noted. Incidentally noted is a large left lobe of the thyroid with calcifications. 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 No fracture is noted.
--- NOTE | 2017-05-31 08:13 | RAD ---
HISTORY: Fall, bilateral shoulder pain COMPARISONS: None VIEWS: 8, Frontal internal rotation, external rotation, outlet, and axillary views of the left shoulder and of the right shoulder FINDINGS: Right: BONE DENSITY: There is diffuse osteopenia. BONES: There is no displaced fracture. JOINTS: There is mild osteoarthritis of the a.c. and glenohumeral joints. ALIGNMENT: There is no dislocation. The alignment is anatomic. SOFT TISSUES: Unremarkable. Left: BONE DENSITY: There is diffuse osteopenia. BONES: There is no displaced fracture. JOINTS: There is mild osteoarthritis of the a.c. and glenohumeral joints ALIGNMENT: There is no dislocation. The alignment is anatomic. SOFT TISSUES: Unremarkable. OTHER FINDINGS: None. IMPRESSION: OSTEOPENIA. OSTEOARTHRITIS.. NO ACUTE OSSEOUS INJURY BILATERALLY. IF SYMPTOMS PERSIST, RECOMMEND REPEAT IMAGING.
== END 2017-05-31 02:37 | disposition home or self-care (01) ==
LOC: ED 22:36
DX: S00.83XA Contusion of other part of head, initial encounter (principal); S09.90XA Unspecified injury of head, initial encounter; M54.2 Cervicalgia; M25.561 Pain in right knee; M25.512 Pain in left shoulder; M25.511 Pain in right shoulder; W19.XXXA Unspecified fall, initial encounter; Y93.9 Activity, unspecified; Y92.9 Unspecified place or not applicable
CPT/HCPCS: 70450; 70486; 72125; 99282

== ENCOUNTER 2017-10-01 20:21 | Emergency (ER) | payer MEDICARE, MEDICAID ==
--- OUTSIDE RECORDS SUMMARY | 2017-10-01 20:54 | XMS REPORT ---
:1945 External Reference #:[id number] Author Organization [facility] Address [address] [place] [address] Phone [phone] Care Team Providers Name Role Phone HCP/LW on file Primary Care Physician Unavailable Payers Type Date Identification Numbers Payment Provider Subscriber Medicare Primary Policy Number: [id number] [facility] [employer] PayID: [id number] [facility] [address] Policy Number: [id number] Medicaid [employer] Name: 2 [address] [facility] PayID: [id number] [place] [address] Problems Date Description Provider Status Onset: 12/15/2015 Minimal cognitive impairment Ap Meredith M.D. Active Onset: 12/15/2015 Chronic nonalcoholic liver disease Ap Meredith M.D. Active Onset: 12/15/2015 Allergic rhinitis due to pollen Ap Meredith M.D. Active Onset: 12/15/2015 Allergic rhinitis Ap Meredith M.D. Active Onset: 12/15/2015 H/O: pulmonary embolus Ap Meredith M.D. Active Onset: 12/15/2015 History of thromboembolism of vein Ap Meredith M.D. Active Onset: 12/15/2015 Long-term current use of Ap Meredith M.D. Active anticoagulant Onset: 03/04/2016 Right bundle branch block Ap Meredith M.D. Active Onset: 11/12/1963 Migraine Ap Meredith M.D. Active Note: used to have often but none in years Onset: 12/06/2016 History of cerebrovascular accident Ap Meredith M.D. 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 Work Status Retired Cigarette Use Denies Cigarette Use Smoking Non Smoker Daily Caffeine Consumes on average 1 cup of coffee per day Sun Exposure Does not use sunscreen Age [address] [place] 21 Years Old Allergies, Adverse Reactions, Alerts Date Description Reaction Status Severity Comments 12/15/2015 Metoclopramide active rash or dermatitis 12/15/2015 Lidoderm active ascending cholangitis 12/15/2015 Flagyl active nausea/vomiting 12/15/2015 Rocephin active rash or dermatitis 12/15/2015 Cipro active breathing problems 12/15/2015 Cephalosporins active rash or dermatitis 12/06/2016 Celebrex active rash 12/06/2016 Cephalexin active rash 12/06/2016 Rocephin active palpitations and hallucinations 12/15/2015 Aspirin inactive Medications Medication Date Status Form Strength Qnty SIG Indications Ordering Provider Ranitidine 150 08/15 Active Tablets 150mg 90tab [facility] Maximum Strength s mouth daily Richard, D.O. Lidocaine HCL 07/17 Active Gel 2% 30ml apply to M53.3 [facility] painful area Richard, up to 4 times D.O. a day as needed for pain Tramadol HCL 07/17 Active Tablets 50mg 30tab 1 by mouth M53.3 [facility] 6 hours Richard, as needed for D.O. pain Truform 04/14 Active Misc 2unit Use as I87.002 [facility], Anti-Embolism s directed Richard, Stockings D.O. 20-30MMHG/Thigh High/Large Aspirin 12/01 Active Tablets 81mg 1 by mouth Z86.[address] osvaldo Song MD Colace 09/25 Active Capsules 100mg 180ca 1 twice a day K59.00 Shellie ps for Richard, constipation D.O. Naproxen 12/13 Active Tablets 375mg take 1 tab by mouth 2 times daily as needed with food for arthritis Simvastatin 12/13 Active Tablets 40mg 30tab take one [place], s tablet by Richard, mouth every D.O. day Levocetirizine 12/13 Active Tablets 5mg 90tab take one Ap Dihydrochlor s tablet by A. mouth every Klepack, day in the M.D. evening for allergies Xarelto 12/13 Active Tablets 20mg 90tab take one Z86.711 [place], /2015 s tablet by Richard, mouth every D.O. day Z86.718 Z79.01 Montelukast 12/14/2015 Active Tablets 10mg 90tabs Take One J30.1 [place], Sodium Tablet By Richard, D.O. Mouth Every Day J30.9 Amitriptyline 12/14/2015 Active Tablets 25mg 90tabs Take G31.84 [place] , HCL Three Richard, Tablets D.O. By Mouth At Bedtime Pancreaze 09/27/2016 - Hx Caps [id number] 90caps 1 before K59.00 Ap Garcia 10/23/2016 Part nit each meal Nazia Meredith R10.84 Promethazine HCL 12/15/2015 - Hx Solution 50mg/ml one vial Ap Garcia 11/10/2016 injected Im luci Meredith nausea M.DThu Nasonex 12/14/2015 - Hx Suspension 50mcg/Act 2 sprays to Unknown 10/23/2016 both nostrils once daily prn Ondansetron HCL 12/14/2015 - Hx Tablets 4mg 1 by mouth Unknown 12/14/2015 every 6 hours as needed for nausea Immunizations CPT Code Status Date Vaccine Lot # [id number] Given 05/25/2017 Influenza Vaccine Split Virus Preservative Free Im [id number] Use 62360 Given 05/31/2016 Influenza Vaccine Split Virus Preservative Free Im [id number] Use 86849 Given 05/21/2015 Flu, Split Virus 3Yrs 46336 Given 11/06/2014 Prevnar 13 01790 Given 06/10/2014 Flu, Split Virus 3Yrs 49324 Given 06/05/2013 Flu, Split Virus 3Yrs 37458 Given 11/02/2012 Zostavax 84872 Given 09/17/2012 Pneumococcal Immunization 55772 Given 05/15/2012 Flu, Split Virus 3Yrs 45168 Given 05/13/2011 Flu, Split Virus 3Yrs 45527 Given 06/15/2010 Flu, Split Virus 3Yrs Vital Signs Date Vital Result Comment 09/29/2017 BP Systolic 128 mmHg BP Diastolic 82 mmHg Weight 227.00 lb with boots 08/31/2017 BP Systolic 124 mmHg BP Diastolic 70 mmHg 08/15/2017 BP Systolic 138 mmHg BP Diastolic 82 mmHg Weight 223.00 lb 07/17/2017 BP Systolic 124 mmHg BP Diastolic 80 mmHg Height 64 inches 5'4" Weight 224.00 lb BMI (Body Mass Index) 38.4 kg/m2 04/28/2017 BP Systolic 132 mmHg BP Diastolic 82 mmHg Body Temperature 97.7 F 04/14/2017 BP Systolic 136 mmHg BP Diastolic 74 mmHg Weight 230.00 lb w/shoes 04/03/2017 BP Systolic 132 mmHg BP Diastolic 78 mmHg Weight 231.00 lb 03/24/2017 BP Systolic 132 mmHg BP Diastolic 80 mmHg Weight 230.00 lb with shoes 02/03/2017 BP Systolic 140 mmHg BP Diastolic 85 mmHg Heart Rate 80 /min Respiratory Rate 16 /min Height 64 inches 5'4" with shoes Weight 231.00 lb with shoes BMI (Body Mass Index) 39.6 kg/m2 12/13/2016 Heart Rate 70 /min rrr Respiratory Rate 16 /min 12/06/2016 BP Systolic 136 mmHg BP Diastolic 64 mmHg Weight 225.00 lb 11/11/2016 BP Systolic 133 mmHg BP Diastolic 90 mmHg Weight 208.00 lb 10/24/2016 BP Systolic 128 mmHg BP Diastolic 62 mmHg 09/27/2016 BP Systolic 126 mmHg BP Diastolic 74 mmHg Heart Rate 80 /min Respiratory Rate 16 /min Body Temperature 97.9 F Weight 225.00 lb 06/23/2016 BP Systolic 130 mmHg BP Diastolic 76 mmHg Height 64.25 inches 5'4.25" Weight 225.00 lb BMI (Body Mass Index) 38.3 kg/m2 03/15/2016 BP Systolic 138 mmHg BP Diastolic 82 mmHg Weight 230.00 lb wih sneakers 03/04/2016 BP Systolic 134 mmHg BP Diastolic 68 mmHg Weight 229.00 lb 01/22/2016 BP Systolic 135 mmHg BP Diastolic 80 mmHg Heart Rate 80 /min Respiratory Rate 16 /min Weight 235.00 lb 12/15/2015 BP Systolic 135 mmHg BP Diastolic 75 mmHg Height 64.5 inches 5'4.50" Weight 236.00 lb BMI (Body Mass Index) 39.9 kg/m2 Results Test Date Test Result H/L Range Note Inr/Protime 07/20/2017 Inr 1.32 High 0.89-1.11 CBC Auto Diff 07/20/2017 White Blood Count 8.1 10^3/uL 3.5-10.8 Red Blood Count 5.19 10^6/uL 4.0-5.4 Hemoglobin 13.7 g/dL 12.0-16.0 Hematocrit 43 % 35-47 Mean Corpuscular Volume 82 fL 80-97 Mean Corpuscular Hemoglobin 26 pg Low 27-31 Mean Corpuscular HGB Conc 32 g/dL 31-36 Red Cell Distribution Width 15 % 10.5-15 Platelet Count 234 10^3/uL 150-450 Mean Platelet Volume 10 um3 7.4-10.4 Abs Neutrophils 5.6 10^3/uL 1.5-7.7 Abs Lymphocytes 1.7 10^3/uL 1.0-4.8 Abs Monocytes 0.6 10^3/uL 0-0.8 Abs Eosinophils 0.1 10^3/uL 0-0.6 Abs Basophils 0.1 10^3/uL 0-0.2 Abs Nucleated RBC 0 10^3/uL Granulocyte % 69.1 % 38-83 Lymphocyte % 21.5 % Low 25-47 Monocyte % 7.0 % 1-9 Eosinophil % 1.8 % 0-6 Basophil % 0.6 % 0-2 Nucleated Red Blood Cells % 0 Comp Metabolic Panel 07/20/2017 Sodium 137 mmol/L 133-145 Potassium 4.2 mmol/L 3.5-5.0 Chloride 103 mmol/L 101-111 Co2 Carbon Dioxide 28 mmol/L 22-32 Anion Gap 6 mmol/L 2-11 Glucose 113 mg/dL High 70-100 Blood Urea Nitrogen 10 mg/dL 6-24 Creatinine 0.83 mg/dL 0.51-0.95 BUN/Creatinine Ratio 12.0 8-20 Calcium 9.6 mg/dL 8.6-10.3 Total Protein 6.6 g/dL 6.4-8.9 Albumin 3.8 g/dL 3.2-5.2 Globulin 2.8 g/dL 2-4 Albumin/Globulin Ratio 1.4 1-3 Total Bilirubin 0.40 mg/dL 0.2-1.0 Alkaline Phosphatase 145 U/L High 34-104 Alt 24 U/L 7-52 Ast 23 U/L 13-39 Egfr Non- 67.2 >60 Egfr 86.4 >60 1 Laboratory test finding 07/20/2017 Magnesium 2.0 mg/dL 1.9-2.7 Vitamin B12 397 pg/mL 180-914 2 Urinalysis Profile 07/16/2017 Urine Color Yellow Urine Appearance Cloudy Urine Specific Marion 1.011 1.010-1.030 Urine pH 6.0 5-9 Urine Urobilinogen Negative Negative Urine Ketones Negative Negative Urine Protein Negative Negative Urine Leukocytes 2+ Negative Urine Blood 1+ Negative Urine Nitrite Negative Negative Urine Bilirubin Negative Negative Urine Glucose Negative Negative Urine White Blood Cell 2+(11-20/hpf) Absent Urine Red Blood Cell 1+(3-5/hpf) Absent Urine Bacteria 1+ Absent Urine Squamous Epithelial Cell Present Absent Laboratory test 07/16/2017 Urine Culture And SEE RESULT BELOW 3 finding Sensitivities Laboratory test 12/07/2016 GGTP 23 U/L 9-64.0 4 finding Nucleotidase, 5' 16 U/L 0-15 4, 5 Liver Function Panel 12/07/2016 Total Protein 5.9 g/dL Low 6.4-8.9 4 Albumin 3.3 g/dL 3.2-5.2 4 Globulin 2.6 g/dL 2-4 4 Albumin/Globulin Ratio 1.3 1-3 4 Total Bilirubin 0.40 mg/dL 0.2-1.0 4 Direct Bilirubin 0.10 mg/dL 0.03-0.18 4 Indirect Bilirubin 0.3 mg/dL 0.3-1.0 4 Alkaline Phosphatase 139 U/L High 34-104 4 Alt 17 U/L 7-52 4 Ast 18 U/L 13-39 4 Laboratory test finding 12/07/2016 Cardiolipin Iga < 9.4 APL 6 Cardiolipin Igg/Igm 12/07/2016 Phospholipid Ab IgM, S < 9.4 MPL 7 Phospholipid Ab IgG < 9.4 GPL 8 Laboratory test finding 12/07/2016 TSH (Thyroid Stim Horm) 0.68 mcIU/mL 0.34-5.60 9 Free T4 (Free Thyroxine) 0.87 ng/dL 0.61-1.12 10 Vitamin B12 308 pg/mL 180-914 11 Comp Metabolic Panel 12/07/2016 Sodium 138 mmol/L 133-145 Potassium 4.4 mmol/L 3.5-5.0 Chloride 104 mmol/L 101-111 Co2 Carbon Dioxide 29 mmol/L 22-32 Anion Gap 5 mmol/L 2-11 Glucose 137 mg/dL High 70-100 Blood Urea Nitrogen 11 mg/dL 6-24 Creatinine 0.73 mg/dL 0.51-0.95 BUN/Creatinine Ratio 15.1 8-20 Calcium 9.0 mg/dL 8.6-10.3 Total Protein 5.9 g/dL Low 6.4-8.9 Albumin 3.4 g/dL 3.2-5.2 Globulin 2.5 g/dL 2-4 Albumin/Globulin Ratio 1.4 1-3 Total Bilirubin 0.50 mg/dL 0.2-1.0 Alkaline Phosphatase 156 U/L High 34-104 Alt 15 U/L 7-52 Ast 16 U/L 13-39 Egfr Non- 78.1 >60 Egfr 100.5 >60 12 Laboratory test finding 12/05/2016 Troponin-I (TnI) 0.01 ng/mL <0.04 13 Laboratory test finding 10/24/2016 Folic Acid (Folate) 7.05 ng/mL > 3.99 Vitamin B12 268 pg/mL 180-914 14 RPR 10/24/2016 Syphillis Igg W/Reflex RPR Nonreactive Nonreactive 15 Heavy Metal Blool 10/24/2016 Arsenic <1 ng/mL 16 Lead 1.2 mcg/dL 17 Mercury <1 ng/mL 18 Cadmium 0.4 ng/mL 19 [address] Address See Comment [address] [facility] [place] [address] [facility] Guardian First Name CABRERA Langston Guardian Last Name ABRAM SANTANA <SEE NOTE> 21 Venous/Capillary Heavy Metals Venous Patient Race WHITE Comp Metabolic Panel 09/27/2016 Sodium 137 mmol/L 133-145 Potassium 4.3 mmol/L 3.5-5.0 Chloride 102 mmol/L 101-111 Co2 Carbon Dioxide 27 mmol/L 22-32 Anion Gap 8 mmol/L 2-11 Glucose 129 mg/dL High 70-100 Blood Urea Nitrogen 9 mg/dL 6-24 Creatinine 0.79 mg/dL 0.51-0.95 BUN/Creatinine Ratio 11.4 8-20 Calcium 9.1 mg/dL 8.6-10.3 Total Protein 6.3 g/dL Low 6.4-8.9 Albumin 3.7 g/dL 3.2-5.2 Globulin 2.6 g/dL 2-4 Albumin/Globulin Ratio 1.4 1-3 Total Bilirubin 0.40 mg/dL 0.2-1.0 Alkaline Phosphatase 144 U/L High 34-104 Alt 22 U/L 7-52 Ast 27 U/L 13-39 Egfr Non- 71.3 >60 Egfr 91.7 >60 22 Laboratory test finding 09/27/2016 Erythrocyte Sed Rate 42 mm/Hr High 0- 40 Liver Function Panel 09/27/2016 Direct Bilirubin 0.10 mg/dL 0.03-0.18 Indirect Bilirubin 0.3 mg/dL 0.3-1.0 CBC Auto Diff 09/27/2016 White Blood Count 8.3 10^3/uL 3.5-10.8 Red Blood Count 5.18 10^6/uL 4.0-5.4 Hemoglobin 13.9 g/dL 12.0-16.0 Hematocrit 43 % 35-47 Mean Corpuscular Volume 83 fL 80-97 Mean Corpuscular Hemoglobin 27 pg 27-31 Mean Corpuscular HGB Conc 32 g/dL 31-36 Red Cell Distribution Width 15 % 10.5-15 Platelet Count 261 10^3/uL 150-450 Mean Platelet Volume 10 um3 7.4-10.4 Abs Neutrophils 5.5 10^3/uL 1.5-7.7 Abs Lymphocytes 2.0 10^3/uL 1.0-4.8 Abs Monocytes 0.6 10^3/uL 0-0.8 Abs Eosinophils 0.1 10^3/uL 0-0.6 Abs Basophils 0 10^3/uL 0-0.2 Abs Nucleated RBC 0 10^3/uL Granulocyte % 66.8 % 38-83 Lymphocyte % 24.4 % Low 25-47 Monocyte % 6.9 % 1-9 Eosinophil % 1.7 % 0-6 Basophil % 0.2 % 0-2 Nucleated Red Blood Cells % 0.1 CBC Auto Diff 09/23/2016 White Blood Count 16.6 10^3/uL High 3.5-10.8 Red Blood Count 5.31 10^6/uL 4.0-5.4 Hemoglobin 14.1 g/dL 12.0-16.0 Hematocrit 44 % 35-47 Mean Corpuscular Volume 83 fL 80-97 Mean Corpuscular Hemoglobin 27 pg 27-31 Mean Corpuscular HGB Conc 32 g/dL 31-36 Red Cell Distribution Width 15 % 10.5-15 Platelet Count 213 10^3/uL 150-450 Mean Platelet Volume 9 um3 7.4-10.4 Abs Neutrophils 14.5 10^3/uL High 1.5-7.7 Abs Lymphocytes 1.2 10^3/uL 1.0-4.8 Abs Monocytes 0.8 10^3/uL 0-0.8 Abs Eosinophils 0 10^3/uL 0-0.6 Abs Basophils 0.1 10^3/uL 0-0.2 Abs Nucleated RBC 0 10^3/uL Granulocyte % 87.6 % High 38-83 Lymphocyte % 7.0 % Low 25-47 Monocyte % 4.8 % 1-9 Eosinophil % 0.3 % 0-6 Basophil % 0.3 % 0-2 Nucleated Red Blood Cells % 0 Comp Metabolic Panel 09/23/2016 Sodium 136 mmol/L 133-145 Potassium 4.1 mmol/L 3.5-5.0 Chloride 106 mmol/L 101-111 Co2 Carbon Dioxide 24 mmol/L 22-32 Anion Gap 6 mmol/L 2-11 Glucose 132 mg/dL High 70-100 Blood Urea Nitrogen 11 mg/dL 6-24 Creatinine 0.77 mg/dL 0.51-0.95 BUN/Creatinine Ratio 14.3 8-20 Calcium 9.3 mg/dL 8.6-10.3 Total Protein 6.9 g/dL 6.4-8.9 Albumin 3.6 g/dL 3.2-5.2 Globulin 3.3 g/dL 2-4 Albumin/Globulin Ratio 1.1 1-3 Total Bilirubin 0.50 mg/dL 0.2-1.0 Alkaline Phosphatase 156 U/L High 34-104 Alt 15 U/L 7-52 Ast 20 U/L 13-39 Egfr Non- 73.5 >60 Egfr 94.5 >60 23 Laboratory test finding 09/23/2016 Lipase < 10 U/L Low 11.0-82.0 C Reactive Protein 4.49 mg/L < 5.00 24 Troponin-I (TnI) 0.01 ng/mL <0.04 25 B-Type Natriuretic Peptide BNP 19 pg/mL 26 Inr/Protime 09/23/2016 Inr 1.51 High 0.89-1.11 Laboratory test finding 09/23/2016 Partial Thrombo Time 32.5 seconds 26.0 -36.3 PTT Lactic Acid 1.0 mmol/L 0.5-2.0 27 Laboratory test 03/03/2016 Troponin-I (TnI) 0.00 ng/mL <0.03 28 finding Xray 02/23/2016 X-Ray, Wrist, djd of 1st mcp Complete, Min. Of 3 Views R X-Ray, Knee, Bilateral, 4 Or More Views wnl X-Ray, Tib/Fib, Two Views, Bilaterl wnl Xray 01/22/2016 X-Ray, Knee, Left, 4 Or More Views wnl 1 Because ethnic data is not always readily available, this report includes an eGFR for both -Americans and non- Americans. The National Kidney Disease Education Program (NKDEP) does not endorse the use of the MDRD equation for patients that are not between the ages of 18 and 70, are , have extremes of body size, muscle mass, or nutritional status, or are non- or non-. According to the National Kidney Foundation, irrespective of diagnosis, the stage of the disease is based on the level of kidney function: Stage Description GFR(mL/min/1.73 m(2)) 1 Kidney damage with normal or decreased GFR 90 2 Kidney damage with mild decrease in GFR 60-89 3 Moderate decrease in GFR 30-59 4 Severe decrease in GFR 15-29 5 Kidney failure <15 (or dialysis) 2 Normal Range 180 to 914 Indeterminate Range 145 to 180 Deficient Range <145 3 SEE RESULT BELOW Name: CABRERA VALVERDE : [address]: Wes Luna MD Acct: [id number] Unit: [id number] AGE: 72 Location: ED Re07/16/17 SEX: F Status: DEP ER SPEC: [id number] DIANA: 07/16/17-0 [facility] DR: Wes Luna MD REQ: [id number] RECD: 07/16/17 STATUS: DHRUV BYRD DR: Richard Hensley DO _ SOURCE: URINE SPDESC: ORDERED: Urine Culture Procedure Result Reported Site Urine Culture Final 07/17/17- 0821 ML No Growth (<1,000 CFU/mL) * ML - MAIN LAB ([facility]) . END OF REPORT * ML=Testing performed at Main Lab DEPARTMENT OF PATHOLOGY, [address] [place] [address] Ji Madera M.D. Director [facility] # [id number] 4 likely d/t medication as 5 prime nucleotidase is elevated 5 INTERPRETIVE INFORMATION: 5' Nucleotidase Test developed and characteristics determined by [employer]. See Compliance Statement B: [employer]/ Performed by [employer], [address] [place] [id number] [email or web address], Deangelo Cason MD - Lab. Director Test Performed by: [facility] [address] [place] [address] 6 REFERENCE VALUE <15.0 (Negative) Test Performed by: [facility] [employer] - [facility] [address] [place] [address] 7 REFERENCE VALUE <15.0 (Negative) 8 REFERENCE VALUE <15.0 (Negative) Test Performed by: [facility] [employer] - [facility] [address] [place] [address] 9 UNABLE TO DRAW LUP AND APCR AT [place] LOCATION 10 UNABLE TO DRAW LUP AND APCR AT [place] LOCATION 11 Normal Range 180 to 914 Indeterminate Range 145 to 180 Deficient Range <145 12 Because ethnic data is not always readily available, this report includes an eGFR for both -Americans and non- Americans. The National Kidney Disease Education Program (NKDEP) does not endorse the use of the MDRD equation for patients that are not between the ages of 18 and 70, are , have extremes of body size, muscle mass, or nutritional status, or are non- or non-. According to the National Kidney Foundation, irrespective of diagnosis, the stage of the disease is based on the level of kidney function: Stage Description GFR(mL/min/1.73 m(2)) 1 Kidney damage with normal or decreased GFR 90 2 Kidney damage with mild decrease in GFR 60-89 3 Moderate decrease in GFR 30-59 4 Severe decrease in GFR 15-29 5 Kidney failure <15 (or dialysis) 13 99th percentile=0.04 ng/mL Troponin results at [facility] and [facility] are not interchangeable. 14 Normal Range 180 to 914 Indeterminate Range 145 to 180 Deficient Range <145 15 Warning: A positive result is not useful for establishing a diagnosis of syphilis. In most situations, such a result may reflect a prior treated infection; a negative result can exclude a diagnosis of syphilis except for incubating or early primary disease. 16 Reference Value: 0-12 ADDITIONAL INFORMATION This test was developed and its performance characteristics determined by [facility] in a manner consistent with CLIA requirements. This test has not been cleared or approved by the U.S. Food and Drug Administration. 17 Reference Value: 0.0-4.9 ADDITIONAL INFORMATION Testing performed by Inductively Coupled Plasma-Mass Spectrometry (ICP-MS). This test was developed and its performance characteristics determined by [facility] in a manner consistent with CLIA requirements. This test has not been cleared or approved by the U.S. Food and Drug Administration. 18 Reference Value: 0-9 ADDITIONAL INFORMATION This test was developed and its performance characteristics determined by [facility] in a manner consistent with CLIA requirements. This test has not been cleared or approved by the U.S. Food and Drug Administration. 19 Reference Value: 0.0-4.9 ADDITIONAL INFORMATION This test was developed and its performance characteristics determined by [facility] in a manner consistent with CLIA requirements. This test has not been cleared or approved by the U.S. Food and Drug Administration. Test Performed by: [place] [address] [employer]ographic Equipment Assembler: Ap Ortzi II, M.D., Ph.D. 20 RESULT: [address] 21 CELL 22 Because ethnic data is not always readily available, this report includes an eGFR for both -Americans and non- Americans. The National Kidney Disease Education Program (NKDEP) does not endorse the use of the MDRD equation for patients that are not between the ages of 18 and 70, are , have extremes of body size, muscle mass, or nutritional status, or are non- or non-. According to the National Kidney Foundation, irrespective of diagnosis, the stage of the disease is based on the level of kidney function: Stage Description GFR(mL/min/1.73 m(2)) 1 Kidney damage with normal or decreased GFR 90 2 Kidney damage with mild decrease in GFR 60-89 3 Moderate decrease in GFR 30-59 4 Severe decrease in GFR 15-29 5 Kidney failure <15 (or dialysis) 23 Because ethnic data is not always readily available, this report includes an eGFR for both -Americans and non- Americans. The National Kidney Disease Education Program (NKDEP) does not endorse the use of the MDRD equation for patients that are not between the ages of 18 and 70, are , have extremes of body size, muscle mass, or nutritional status, or are non- or non-. According to the National Kidney Foundation, irrespective of diagnosis, the stage of the disease is based on the level of kidney function: Stage Description GFR(mL/min/1.73 m(2)) 1 Kidney damage with normal or decreased GFR 90 2 Kidney damage with mild decrease in GFR 60-89 3 Moderate decrease in GFR 30-59 4 Severe decrease in GFR 15-29 5 Kidney failure <15 (or dialysis) 24 Acute inflammation: >10.00 25 99th percentile=0.04 ng/mL Troponin results at [facility] and [facility] are not interchangeable. 26 >100 to <200 pg/mL: likely compensated congestive heart failure (CHF) 200 to 400 pg/mL: likely moderate CHF >400 pg/mL: likely moderate to severe CHF 27 [facility] Severe Sepsis and Septic Shock Management Bundle Measure requires all lactic acids initially measuring >2.0 mmol/L be repeated. 28 Reference Range and Interpretation: TnI (ng/mL) Interpretation Less Than 0.03 ng/mL Not supportive of diagnosis of MS 0.03 - 0.50 ng/mL Indeterminate: suggest serial studies if clinically indicated. Greater than 0.5 ng/mL Consistent with diagnosis of MS Procedures Date CPT Code Description Status 09/12/2017 05919 Allergy Injections-Multiple Completed 07/20/2017 48254 Allergy Injections-Multiple Completed 07/06/2017 82297 Allergy Injections-Multiple Completed 06/22/2017 00032 Allergy Injections-Multiple Completed 05/25/2017 62108 Allergy Injections-Multiple Completed 05/11/2017 68452 Allergy Injections-Multiple Completed 04/14/2017 30184 Allergy Injections-Multiple Completed 03/24/2017 27139 Allergy Injections-Multiple Completed 03/10/2017 95898 Allergy Injections-Multiple Completed 02/24/2017 02061 Allergy Injections-Multiple Completed 02/08/2017 84725 Allergy Injections-Multiple Completed 01/20/2017 46972 Allergy Injections-Multiple Completed 01/06/2017 00594 Allergy Injections-Multiple Completed 12/23/2016 13354 Allergy Injections-Multiple Completed 12/09/2016 35751 Allergy Injections-Multiple Completed 11/25/2016 85789 Allergy Injections-Multiple Completed 11/11/2016 17473 Allergy Injections-Multiple Completed 10/31/2016 88986 Allergy Injections-Multiple Completed 10/17/2016 86188 Allergy Injections-Multiple Completed 10/05/2016 95907 Allergy Injections-Multiple Completed 09/20/2016 54738 Allergy Injections-Multiple Completed 09/06/2016 90290 Allergy Injections-Multiple Completed 08/23/2016 05479 Allergy Injections-Multiple Completed 08/09/2016 36885 Allergy Injections-Multiple Completed 07/26/2016 79322 Allergy Injections-Multiple Completed 07/12/2016 41942 Allergy Injections-Multiple Completed 06/28/2016 90928 Allergy Injections-Multiple Completed 06/14/2016 46486 Allergy Injections-Multiple Completed 05/31/2016 01467 Allergy Injections-Multiple Completed 05/17/2016 81231 Allergy Injections-Multiple Completed 05/03/2016 80592 Allergy Injections-Multiple Completed 04/19/2016 53747 Allergy Injections-Multiple Completed 04/05/2016 04729 Allergy Injections-Multiple Completed 03/21/2016 47734 Allergy Injections-Multiple Completed 03/08/2016 83733 Allergy Injections-Multiple Completed 03/04/2016 62930 Electrocardiogram Complete Completed 02/23/2016 65947 Allergy Injections-Multiple Completed 02/23/2016 65365 X-Ray Tibia And Fibula,Ap & Lateral Views Completed 02/23/2016 79089 X-Ray Knee, Complete Completed 02/23/2016 27521 X-Ray Wrist Three Views Completed 02/05/2016 10591 Allergy Injections-Multiple Completed 01/22/2016 62758 X-Ray Knee, Complete Completed 12/31/2015 11496 Allergy Injections-Multiple Completed 12/17/2015 77979 Allergy Injections-Multiple Completed Encounters Type Date Location Provider CPT E/M Dx Office Visit 08/31/2017 10:20a Main Office Ayan Rivera 17268 S00.33xA S80.02xA Z79.01 W10.1xxA Office Visit 08/15/2017 11:00a Main Office Richard Hensley D.O. 60878 R11.2 R94.5 Z79.01 Z12.31 Office Visit 07/17/2017 4:30p Main Office Richard Hensley D.O. 60296 M53.3 Office Visit 04/14/2017 11:00a Main Office Richard Hensley D.O. 11303 I87.002 Z86.711 Z79.01 J30.1 G47.30 Office Visit 04/03/2017 5:30p Main Office Moise June M.D. 98511 I83.93 Z86.711 Z79.01 R58 Office Visit 03/24/2017 1:45p Main Office Richard Hensley D.O. 09168 I83.93 J30.1 J30.89 J30.9 Office Visit 02/03/2017 2:00p Main Office Ap Meredith M.D. 64489 I80.02 Office Visit 12/13/2016 4:15p Main Office Ap Meredith M.D. 54660 Z86.73 R74.8 Office Visit 12/06/2016 3:45p Main Office Ap Meredith M.D. 78135 R10.11 Z86.73 R20.0 F06.8 Office Visit 11/11/2016 11:00a Main Office Ap Meredith M.D. 56972 F06.8 R94.02 R20.0 J30.89 J30.1 Office Visit 10/24/2016 10:00a Main Office Ap Meredith M.D. 04050 F06.8 Office Visit 09/27/2016 2:00p Main Office Ap Meredith M.D. 98531 R10.84 K59.00 Office Visit 06/23/2016 10:00a Main Office Ap Meredith M.D. 23096 I45.10 M18.9 Z86.711 Z79.01 Z71.89 Office Visit 03/15/2016 9:45a Main Office Moise June M.D. 22059 R07.89 Office Visit 03/04/2016 3:15p Main Office Ap Meredith M.D. 59898 M94.0 R07.89 I45.10 Office Visit 02/23/2016 4:45p Main Office Ap Meredith M.D. 07511 S60.211A S80.11xA S80.12xA R29.6 M18.9 M25.561 M25.562 Office Visit 01/22/2016 1:30p Main Office Ap Meredith M.D. 32269 S80.02xA J30.9 Z86.711 Z79.01 W01.0xxA Office Visit 12/15/2015 3:45p Main Office Ap Meredith M.D. 34338 K76.0 G31.84 J30.1 J30.9 Z86.711 Z86.718 Z79.01 E66.3 Z68.39 Plan of Care Future Appointment(s):10/17/2017 11:00 am - Richard Hensley D.O. at Main Office
[2017-10-01] MEDS ORDERED: NS 0.9% 1000 ML* 1,000 ML IV ONE (22:15)
[2017-10-01] MEDS ORDERED: Ondansetron INJ* 2 MG/ML VIAL IV ONE (22:15)
[2017-10-01] MEDS ORDERED: Morphine INJ* 4 MG/ML 1 ML CARPUJECT IV ONE (22:15)
[2017-10-01 23:14] LABS: ABS Basophils 0 10^3/ul (0-0.2); ABS Eosinophils 0.1 10^3/ul (0-0.6); ABS Lymphocytes 1.9 10^3/ul (1.0-4.8); ABS Monocytes 0.6 10^3/ul (0-0.8); ABS Neutrophils 7.5 10^3/ul (1.5-7.7); ABS Nucleated RBC 0 10^3/ul; Eosinophil % 0.7 % (0-6); Hematocrit 42 % (35-47); Hemoglobin 13.9 g/dl (12.0-16.0); Lymphocyte % 19.1 % (25-47); Mean Corpuscular HGB Conc 33 g/dl (31-36); Mean Corpuscular Hemoglobin 27 pg (27-31); Mean Corpuscular Volume 80 fL (80-97); Mean Platelet Volume 8 um3 (7.4-10.4); Nucleated Red Blood Cells % 0; Platelet Count 241 10^3/ul (150-450); Red Blood Count 5.19 10^6/ul (4.0-5.4); Red Cell Distribution Width 16 % (10.5-15); White Blood Count 10.1 10^3/ul (3.5-10.8)
[2017-10-01 23:30] LABS: EGFR Non-African American 67.2 (>60)
[2017-10-02] MEDS ORDERED: Iohexol 300* (CONTRAST) 10 ML SDV IV ONE (00:12)
[2017-10-02 02:03] LABS: Urine Appearance Cloudy; Urine Blood 1+ (Negative); Urine Color Yellow; Urine Ketones Trace (Negative); Urine Protein Negative (Negative); Urine Specific Gravity 1.024 (1.010-1.030); Urine Urobilinogen Negative (Negative)
[2017-10-02] MEDS ORDERED: Sulfamethox/Trimethoprim DS 800/160* TAB PO ONE (02:06)
--- NOTE | 2017-10-02 02:41 | ED ---
Lupis Mason Edward, scribed for Abel Wood MD on 10/01/17 at 2153 . Abdominal Pain/Female - HPI Summary HPI Summary: 72 y/o presents to the c/o diffuse ABD pain starting earlier today. Pain rated 6 /10 at triage. The pain is not aggravated or alleviated by anything. Denies vomiting and fever. Denies urinary symptoms. Pt states she also has mild numbness in her face. PMHx blood clot in leg. Pt takes blood thinner. Pt lives in senior housing. - History of Current Complaint Chief Complaint: EDAbdPain Stated Complaint: GENERAL ILLNESS Time Seen by Provider: 10/01/17 21:49 Hx Obtained From: Patient Onset/Duration: Lasting Hours Timing: Constant Pain Intensity: 6 Pain Scale Used: 0-10 Numeric Location: Diffuse Aggravating Factor(s): Nothing Alleviating Factor(s): Nothing Associated Signs and Symptoms: Positive: Other: - mild facial numbness. Negative: Fever, Urinary Symptoms, Nausea, Vomiting Allergies/Adverse Reactions: Allergies Allergy/AdvReac Type Severity Reaction Status Date / Time Metoclopramide [From Reglan] Allergy Severe Shortness Verified 12/05/16 00:09 of Breath Celecoxib [From Celebrex] Allergy Intermediate Rash Verified 12/05/16 00:09 Cephalexin [From Keflex] Allergy Intermediate Rash Verified 12/05/16 00:09 Ciprofloxacin [From Cipro] Allergy Intermediate Rash Verified 12/05/16 00:09 Aspirin Allergy Unknown Verified 12/05/16 00:09 Reaction Details Ceftriaxone [From Rocephin] AdvReac Intermediate PALPITATIONS, Verified 00:09 HALLUCINATION PMH/Surg Hx/FS Hx/Imm Hx Previously Healthy: No Endocrine/Hematology History: Reports: Hx Anticoagulant Therapy Denies: Hx Diabetes, Hx Systemic Lupus Erythematosus, Hx Thyroid Disease, Hx Anemia Cardiovascular History: Reports: Hx Deep Vein Thrombosis, Hx Hypercholesterolemia Denies: Hx Aneurysm, Hx Angina, Hx Auto Implanted Cardiovert Defib, Hx Congestive Heart Failure, Hx Hypertension, Hx Pacemaker/ICD, Other Cardiovascular Problems/Disorders Respiratory History: Reports: Hx Asthma - environmental allergies, Hx Pulmonary Embolism, Hx Seasonal Allergies Denies: Hx Chronic Obstructive Pulmonary Disease (COPD), Hx Sleep Apnea GI History: Reports: Hx Gall Bladder Disease, Hx Gastroesophageal Reflux Disease Denies: Hx Cirrhosis, Hx Crohn's Disease, Hx Diverticulosis, Hx Irritable Bowel, Hx Ulcer History: Reports: Hx Renal Disease, Other Problems/Disorders - renal disease Denies: Hx Kidney Infection, Hx Kidney Stones Musculoskeletal History: Reports: Hx Arthritis, Hx Osteoporosis - 11/01/12 Denies: Hx Gout Sensory History: Reports: Hx Contacts or Glasses Denies: Hx Deafness, Hx Hearing Aid Opthamlomology History: Reports: Hx Contacts or Glasses Neurological History: Reports: Hx Migraine, Other Neuro Impairments/Disorders - migraines Denies: Hx Dementia, Hx Seizures Psychiatric History: Denies: Hx Anxiety, Hx Eating Disorder, Hx Depression, Hx Panic Disorder, Hx Schizophrenia, Hx Suicide Attempt, Hx Substance Abuse - Surgical History Surgery Procedure, Year, and Place: hysterectomy, rt breast biopsy, cholecystectomy, appendectomy Hx Anesthesia Reactions: No - Immunization History Date of Tetanus Vaccine: Unk Date of Influenza Vaccine: 05/26 Infectious Disease History: No Infectious Disease History: Denies: Hx Hepatitis, Hx Human Immunodeficiency Virus (HIV), Hx Tuberculosis , Traveled Outside the [place] in Last 30 Days - Family History Known Family History: Positive: Cardiac Disease, Hypertension Family History: Denies FHx breast cancer - Social History Alcohol Use: None Hx Substance Use: No Substance Use Type: Reports: None Hx Tobacco Use: Yes Smoking Status (MU): Former Smoker Review of Systems Constitutional: Negative Negative: Fever Eyes: Negative ENT: Negative Cardiovascular: Negative Respiratory: Negative Positive: Abdominal Pain. Negative: Vomiting, Nausea Genitourinary: Negative Musculoskeletal: Negative Skin: Negative Neurological: Other - mild facial numbness Psychological: Normal All Other Systems Reviewed And Are Negative: Yes Physical Exam - Summary Physical Exam Summary: VITAL SIGNS: Reviewed. GENERAL: Patient is a well-developed and nourished female who is lying comfortable in the stretcher. Patient is not in any acute respiratory distress. HEAD AND FACE: No signs of trauma. No ecchymosis, hematomas or skull depressions. No sinus tenderness. EYES: PERRLA, EOMI x 2, No injected conjunctiva, no nystagmus. EARS: Hearing grossly intact. Ear canals and tympanic membranes are within normal limits. MOUTH: Oropharynx within normal limits. NECK: Supple, trachea is midline, no adenopathy, no JVD, no carotid bruit, no c- spine tenderness, neck with full ROM. CHEST: Symmetric, no tenderness at palpation LUNGS: Clear to auscultation bilaterally. No wheezing or crackles. CVS: Regular rate and rhythm, S1 and S2 present, no murmurs or gallops appreciated. ABDOMEN: Soft, diffusely tender. ABD is distended. No rebound no guarding, and no masses palpated. Hypoactive bowel sounds. EXTREMITIES: FROM in all major joints, no edema, no cyanosis or clubbing. NEURO: Alert and oriented x 3. No acute neurological deficits. Speech is normal and follows commands. SKIN: Dry and warm Triage Information Reviewed: Yes Vital Signs On Initial Exam: Initial Vitals Temp Pulse Resp BP Pulse Ox 98.7 F 95 16 130/100 96 10/01/17 20:24 10/01/17 20:24 10/01/17 20:24 10/01/17 20:24 10/01/17 20:24 Vital Signs Reviewed: Yes Diagnostics - Vital Signs Vital Signs Temp Pulse Resp BP Pulse Ox 10/01/17 20:24 98.7 F 95 16 130/100 96 - Laboratory Result Diagrams: 10/01/17 22:50 10/01/17 22:50 Lab Statement: Any lab studies that have been ordered have been reviewed, and results considered in the medical decision making process. - CT ABD/PEL CT CT Interpretation: Positive (See Comments) - STABLE SMALL PERCARDIAL EFFUSION. NO DEFINITE ACUTE PATHOLOGY. CT Interpretation Completed By: Radiologist - ED PHYSICIAN REVIEWS AND AGREES - Additional Comments Diagnostic Additional Comments: EKG - Sinus Rhythm @ 80 BPM. RBBB. Re-Evaluation - Re-Evaluation 1 Re-Evaluation Time: 02:12 Comment: Discuss plan to d/c Abdominal Pain Fem Course/Dx - Course Course Of Treatment: 72 y/o presents to the c/o diffuse ABD pain starting earlier today. ABD/PEL CT SHOWS STABLE SMALL PERCARDIAL EFFUSION. NO DEFINITE ACUTE PATHOLOGY. UA (+) UTI. Pt will be d/c home with abx and f/u with PCP. - Diagnoses Provider Diagnoses: UTI (urinary tract infection) Discharge - Discharge Plan Condition: Stable Disposition: HOME Patient Education Materials: Urinary Tract Infection in Women (ED) Referrals: Richard Hensley DO [Primary Care Provider] - 4 Days (PLEASE F/U IN 3-5 DAYS) Additional Instructions: PLEASE RETURN FOR RETURN OF OR WORSENING OF SYMPTOMS The documentation as recorded by the Lupis beavers Edward accurately reflects the service I personally performed and the decisions made by me, Abel Wood MD.
[2017-10-02 02:56] VITALS: BP 123/76
--- NOTE | 2017-10-02 07:46 | RAD ---
INDICATION: Abdominal pain. Surgical history of hysterectomy. Colostomy. Appendectomy. COMPARISON: CT July 16, 2017 TECHNIQUE: Axial source images were obtained from the hemidiaphragms to the symphysis pubis following administration of oral and intravenous contrast. 121 mL Omnipaque 300 was utilized. Coronal and sagittal reconstructed images were acquired. Lung bases: The lung bases are clear. There is a small pericardial effusion of the base the heart. Liver: The liver is normal in size. There are no masses. There is no ductal dilatation. Gallbladder: Cholecystectomy. Spleen: The spleen is normal in size. There are no masses. Pancreas: There is no focal pancreatic mass or ductal dilatation. There is partial fatty replacement of the pancreas Adrenal glands: There is no evidence of adrenal mass. Kidneys: The kidneys are normal in size and position. There are prompt nephrograms and there is prompt excretion bilaterally. There are no renal parenchymal masses. There is no evidence of nephrolithiasis. Adenopathy: There is no evidence of adenopathy by size criteria. Fluid collections: There are no free or localized fluid collections. Vessels:There are no significant atherosclerotic changes involving the aorta. There is no focal aneurysm. The iliac vessels are normal in caliber. The IVC appears normal. GI tract: There are no acute CT bowel findings. There is no obstruction. The stomach and small bowel appear normal. The lower GI tract is remarkable for scattered diverticula of the sigmoid and descending colon. There is no CT evidence of acute diverticulitis. The cecum, ileocecal valve, and terminal ileum appear normal. There is appendectomy by surgical history. Pelvic organs: There is hysterectomy. There is no adnexal mass Bladder: There are no bladder masses. Abdominal and pelvic soft tissues: The extraperitoneal abdominal and pelvic soft tissues appear normal.. Osseous structures: There are no acute osseous findings. Other: None IMPRESSION: Stable small pericardial effusion. Scattered diverticula without CT evidence of acute diverticulitis. No acute CT findings or interval changes.
== END 2017-10-02 02:55 | disposition home or self-care (01) ==
LOC: ED 20:21
DX: N39.0 Urinary tract infection, site not specified (principal); Z87.891 Personal history of nicotine dependence; Z79.01 Long term (current) use of anticoagulants; Z86.718 Personal history of other venous thrombosis and embolism; I31.3 Pericardial effusion (noninflammatory)
CPT/HCPCS: 36415; 74177; 80053; 81003; 81015; 82150; 83605; 83690; 83735; 85025; 86140; 87040; 87086; 93005; 96374; 96375; 99284; A9270-GY; J2270; J2405; Q9967

== ENCOUNTER 2017-11-08 11:02 | Emergency (ER) | payer MEDICARE, MEDICAID ==
[2017-11-08 14:39] VITALS: BP 134/63
--- NOTE | 2017-11-08 21:16 | ED ---
Radha Mason Thomas scribed for Ap Dennis MD on 11/08/17 at 1151 . Complex/Multi-Sys Presentation - HPI Summary HPI Summary: The patient is a 72 year old female who noticed a rash on her face and presented to her primary care provider, who thought the patient was having an allergic reaction. Her primary care provider told the patient to call 911. The patient then walked from the primary care office to the location of the ambulance services in [place]. The patient does not have a car because it seems that her daughter does not her to drive. The ambulance service then drove the patient to the emergency department. She appears to have a rash consistent with seborrheic dermatitis. She denies chest pain and shortness of breath. The patient does not give a good history, and this history was obtained from Devora Lopez RN. - History Of Current Complaint Chief Complaint: EDRashSkinAbscess Time Seen by Provider: 11/08/17 11:27 Hx Obtained From: Patient, Other: - Nursing Onset/Duration: Still Present Timing: Constant Severity Currently: Mild Aggravating Factor(s): None Alleviating Factor(s): None Associated Signs And Symptoms: Positive: Other - Rash; NEGATIVE: CP, SOB - Allergies/Home Medications Allergies/Adverse Reactions: Allergies Allergy/AdvReac Type Severity Reaction Status Date / Time MS Metoclopramide Allergy Severe Shortness Verified 12/05/16 00:09 [From Reglan] of Breath MS Celecoxib [From Celebrex] Allergy Intermediate Rash Verified 12/05/16 00:09 MS Cephalexin [From Keflex] Allergy Intermediate Rash Verified 12/05/16 00:09 MS Ciprofloxacin [From Cipro] Allergy Intermediate Rash Verified 12/05/16 00:09 MS Aspirin [Aspirin] Allergy Unknown Verified 12/05/16 00:09 Reaction Details MS Ceftriaxone AdvReac Intermediate PALPITATIONS, Verified 12/05/16 00:09 [From Rocephin] HALLUCINATION PMH/Surg Hx/FS Hx/Imm Hx Endocrine/Hematology History: Reports: Hx Anticoagulant Therapy Denies: Hx Diabetes, Hx Systemic Lupus Erythematosus, Hx Thyroid Disease, Hx Anemia Cardiovascular History: Reports: Hx Deep Vein Thrombosis, Hx Hypercholesterolemia Denies: Hx Aneurysm, Hx Angina, Hx Auto Implanted Cardiovert Defib, Hx Congestive Heart Failure, Hx Hypertension, Hx Pacemaker/ICD, Other Cardiovascular Problems/Disorders Respiratory History: Reports: Hx Asthma - environmental allergies, Hx Pulmonary Embolism, Hx Seasonal Allergies Denies: Hx Chronic Obstructive Pulmonary Disease (COPD), Hx Sleep Apnea GI History: Reports: Hx Gall Bladder Disease, Hx Gastroesophageal Reflux Disease Denies: Hx Cirrhosis, Hx Crohn's Disease, Hx Diverticulosis, Hx Irritable Bowel, Hx Ulcer History: Reports: Hx Renal Disease, Other Problems/Disorders - renal disease Denies: Hx Kidney Infection, Hx Kidney Stones Musculoskeletal History: Reports: Hx Arthritis, Hx Osteoporosis - 11/01/12 Denies: Hx Gout Sensory History: Reports: Hx Contacts or Glasses Denies: Hx Deafness, Hx Hearing Aid Opthamlomology History: Reports: Hx Contacts or Glasses Neurological History: Reports: Hx Migraine, Other Neuro Impairments/Disorders - migraines Denies: Hx Dementia, Hx Seizures Psychiatric History: Denies: Hx Anxiety, Hx Eating Disorder, Hx Depression, Hx Panic Disorder, Hx Schizophrenia, Hx Suicide Attempt, Hx Substance Abuse - Surgical History Surgery Procedure, Year, and Place: hysterectomy, rt breast biopsy, cholecystectomy, appendectomy Hx Anesthesia Reactions: No - Immunization History Date of Tetanus Vaccine: Unk Date of Influenza Vaccine: 05/26 Infectious Disease History: No Infectious Disease History: Denies: Hx Hepatitis, Hx Human Immunodeficiency Virus (HIV), Hx Tuberculosis , Traveled Outside the [place] in Last 30 Days - Family History Known Family History: Positive: Cardiac Disease, Hypertension Family History: Denies FHx breast cancer - Social History Alcohol Use: None Hx Substance Use: No Substance Use Type: Reports: None Hx Tobacco Use: Yes Smoking Status (MU): Former Smoker Review of Systems Negative: Fever Negative: Chest Pain Negative: Shortness Of Breath Positive: Rash All Other Systems Reviewed And Are Negative: Yes Physical Exam - Summary Physical Exam Summary: General: well-appearing, no pain distress Skin: warm, color reflects adequate perfusion, dry Head: She has an erythematous flaking rash centralized to her face and left cheek. Eyes: EOMI, [place] ENT: normal Neck: supple, nontender Respiratory: CTA, breath sounds present Cardiovascular: RRR Abdomen: soft, nontender Bowel: present Musculoskeletal: strength/ROM intact Extremities: The left lower extremity is slightly enlarged in diameter compared to the right leg. The calves are nontender. Neurological: normal, sensory/motor intact, A&O x3 Psychological: affect/mood appropriate Triage Information Reviewed: Yes Vital Signs On Initial Exam: Initial Vitals Temp Pulse Resp BP Pulse Ox 98.0 F 87 18 118/98 96 11/08/17 11:04 11/08/17 11:04 11/08/17 11:04 11/08/17 11:04 11/08/17 11:04 Vital Signs Reviewed: Yes Diagnostics - Vital Signs Vital Signs Temp Pulse Resp BP Pulse Ox 11/08/17 11:04 98.0 F 87 18 118/98 96 - Laboratory Lab Statement: Any lab studies that have been ordered have been reviewed, and results considered in the medical decision making process. Complex Multi-Symp Course/Dx Course Of Treatment: Medications reviewed. Allergies noted. - Diagnoses Provider Diagnoses: Seborrheic dermatitis Discharge - Discharge Plan Condition: Stable Disposition: HOME Prescriptions: Ketoconazole 2 % CREAM (NF) [Nizoral 2% CREAM (NF)] 1 applic TOPICAL BID #1 tube Patient Education Materials: Seborrheic Dermatitis (DC) Referrals: Richard Hensley DO [Primary Care Provider] - Additional Instructions: FOLLOW UP WITH YOUR DOCTOR. RETURN TO THE EMERGENCY DEPARTMENT FOR ANY WORSENING OF YOUR CONDITION OR QUESTIONS OR CONCERNS. YOUR BLOOD PRESSURE WAS ELEVATED TODAY; FOLLOW UP WITH YOUR PRIMARY CARE DOCTOR WITHIN THE NEXT 1 WEEK. The documentation as recorded by the Radha beavers Thomas accurately reflects the service I personally performed and the decisions made by , Ap Dennis MD.
== END 2017-11-08 14:39 | disposition home or self-care (01) ==
LOC: ED 11:02
DX: L21.9 Seborrheic dermatitis, unspecified (principal); Z87.891 Personal history of nicotine dependence; Z88.3 Allergy status to other anti-infective agents; Z88.8 Allergy status to other drugs, medicaments and biological substances; Z88.6 Allergy status to analgesic agent
CPT/HCPCS: 99281

== ENCOUNTER 2017-11-30 20:06 | Emergency (ER) | payer MEDICARE, MEDICAID ==
[2017-11-30] MEDS ORDERED: Ondansetron INJ* 2 MG/ML VIAL IV ONE (20:36)
[2017-11-30] MEDS ORDERED: Morphine INJ* 10 MG/ML 1 ML CARPUJECT IV ONE (20:36)
[2017-11-30] MEDS ORDERED: Morphine INJ* 2 MG/ML 1 ML CARPUJECT ONE (21:07)
--- OUTSIDE RECORDS SUMMARY | 2017-11-30 21:18 | XMS REPORT ---
:1945 External Reference #:[id number] Author Organization [facility] Address [address] [place] [address] Phone [phone] Care Team Providers Name Role Phone HCP/LW on file Primary Care Physician Unavailable Payers Type Date Identification Numbers Payment Provider Subscriber Medicare Primary Policy Number: [id number] [facility] [employer] PayID: [id number] [facility] [address] Policy Number: [id number] Medicaid [employer] Name: 2 1 [address] [facility] PayID: [id number] [place] [address] Problems Date Description Provider Status Onset: 12/15/2015 [...] 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 Z86.73 F33.9 Ranitidine 150 08/15/2017 Active Tablets 150mg 90tabs 1 cap by R11.2 Sopchak, Maximum Strength mouth daily Richard, D.O. Lidocaine HCL 07/17/2017 Active Gel 2% 30ml apply to M53.3 Sopchak, painful area Richard, up to 4 times D.O. a day as needed for pain Tramadol HCL 07/17/2017 Active Tablets 50mg 30tabs 1 by mouth M53.3 Sopchak, every 6 hours Richard, as needed for D.O. pain Truform 04/14/2017 Active Misc 2units Use as I87.00 Sopchak, Anti-Embolism directed 2 Richard, Stockings D.O. 20-30MMHG/Thigh High/Large Aspirin 12/01/2016 Active Tablets 81mg [address] osvaldo Simmons MD Colace 09/25/2016 Active Capsules 100mg 180caps 1 twice a day K59.00 Sopchak, for Richard, constipation D.O. Naproxen 12/14/2015 Active Tablets 375mg take 1 tab by Unknown mouth 2 times daily as needed with food for arthritis Levocetirizine 12/14/2015 Active Tablets 5mg 90tabs take one Sopchak, Dihydrochloride tablet by Rihcard, mouth every D.O. day in the evening for allergies Xarelto 12/14/2015 Active Tablets 20mg 90tabs take one Z86.71 Sopchak, tablet by 1 Richard, mouth every D.O. day Z86.718 Z79.01 Montelukast 12/14/2015 Active Tablets 10mg 90tabs Take One J30.1 Sopchak, Sodium Tablet By Richard, D.O. Mouth Every Day J30.9 Amitriptyline 12/14/2015 Active Tablets 25mg 90tabs Take Three G31.84 Sopchak, HCL Tablets By Richard, Mouth At D.O. Bedtime Simvastatin 12/14/2015 Active Tablets 40mg 30tabs Take One Sopchak, Tablet By Richard, Mouth Every D.O. Day Nystatin 11/06/2017 - Hx Cream [id number] 60gm apply R21 Silcoff, 11/29/2017 Unit/G topically Ivis Phipps to affected M.D. area two times a day for skin rash Pancreaze 09/27/2016 - Hx Caps [id number] 90caps 1 before K59.00 Ap Garcia 10/23/2016 Part nit each meal Nazia Meredith R10.84 Promethazine HCL 12/15/2015 - Hx Solution 50mg/ml one vial Ap Garcia 11/10/2016 injected Im luci Meredith nausea Nazia Nasonex 12/14/2015 - Hx Suspension 50mcg/Act 2 sprays to Unknown 10/23/2016 both nostrils once daily prn Ondansetron HCL 12/14/2015 - Hx Tablets 4mg 1 by mouth Unknown 12/14/2015 every 6 hours as needed for nausea Medications Administered in Office Medication Date Status Form Strength Qnty SIG Indications Ordering Provider SC/Im Administered Injection Nurse's Injections 018 Schedule Immunizations CPT Code Status Date Vaccine Lot # [id number] Given 05/25/2017 Influenza Vaccine Split Virus Preservative Free Im [id number] Use 40644 Given 05/31/2016 Influenza Vaccine Split Virus Preservative Free Im [id number] Use 96300 Given 05/21/2015 Flu, Split Virus 3Yrs 71203 Given 11/06/2014 Prevnar 13 20372 Given 06/10/2014 Flu, Split Virus 3Yrs 45259 Given 06/05/2013 Flu, Split Virus 3Yrs 91835 Given 11/02/2012 Zostavax 02662 Given 09/17/2012 Pneumococcal Immunization 10398 Given 05/15/2012 Flu, Split Virus 3Yrs 17485 Given 05/13/2011 Flu, Split Virus 3Yrs 46417 Given 06/15/2010 Flu, Split Virus 3Yrs Vital Signs Date Vital Result Comment 11/29/2017 BP Systolic 130 mmHg BP Diastolic 80 mmHg Weight 220.00 lb w/boots 11/06/2017 BP Systolic 132 mmHg BP Diastolic 78 mmHg Weight 222.00 lb with shoes 09/29/2017 BP Systolic 128 mmHg BP Diastolic [...] Test Date Test Result H/L Range Note Urinalysis Profile 10/02/2017 Urine Color Yellow Urine Appearance Cloudy Urine Specific Barnhart 1.024 1.010-1.030 Urine pH 5.0 5-9 Urine Urobilinogen Negative Negative Urine Ketones Trace Negative Urine Protein Negative Negative Urine Leukocytes 3+ Negative Urine Blood 1+ Negative Urine Nitrite Negative Negative Urine Bilirubin Negative Negative Urine Glucose 1+(50 mg/dL) Negative Urine White Blood Cell 3+(>20/hpf) Absent Urine Red Blood Cell 2+(6-10/hpf) Absent Urine Bacteria 1+ Absent Urine Squamous Epithelial Cell Present Absent Laboratory test 10/02/2017 Urine Culture And SEE RESULT BELOW 1 finding Sensitivities Laboratory test 10/01/2017 Blood Culture SEE RESULT BELOW 2 finding CBC Auto Diff 10/01/2017 White Blood Count 10.1 10^3/uL 3.5-10.8 Red Blood Count 5.19 10^6/uL 4.0-5.4 Hemoglobin 13.9 g/dL 12.0-16.0 Hematocrit 42 % 35-47 Mean Corpuscular Volume 80 fL 80-97 Mean Corpuscular Hemoglobin 27 pg 27-31 Mean Corpuscular HGB Conc 33 g/dL 31-36 Red Cell Distribution Width 16 % High 10.5-15 Platelet Count 241 10^3/uL 150-450 Mean Platelet Volume 8 um3 7.4-10.4 Abs Neutrophils 7.5 10^3/uL 1.5-7.7 Abs Lymphocytes 1.9 10^3/uL 1.0-4.8 Abs Monocytes 0.6 10^3/uL 0-0.8 Abs Eosinophils 0.1 10^3/uL 0-0.6 Abs Basophils 0 10^3/uL 0-0.2 Abs Nucleated RBC 0 10^3/uL Granulocyte % 74.3 % 38-83 Lymphocyte % 19.1 % Low 25-47 Monocyte % 5.5 % 1-9 Eosinophil % 0.7 % 0-6 Basophil % 0.4 % 0-2 Nucleated Red Blood Cells % 0 Inr/Protime 07/20/2017 Inr 1.32 High 0.89-1.11 CBC [...] Egfr Non- 67.2 >60 Egfr 86.4 >60 3 Laboratory test finding 07/20/2017 Magnesium 2.0 mg/dL 1.9-2.7 Vitamin B12 397 pg/mL 180-914 4 Urinalysis Profile 07/16/2017 Urine Color Yellow Urine Appearance Cloudy Urine Specific Barnhart 1.011 1.010-1.030 Urine pH 6.0 5-9 Urine [...] 07/16/2017 Urine Culture And SEE RESULT BELOW 5 finding Sensitivities Laboratory test 12/07/2016 GGTP 23 U/L 9-64.0 6 finding Nucleotidase, 5' 16 U/L 0-15 6, 7 Liver Function Panel 12/07/2016 Total Protein 5.9 g/dL Low 6.4-8.9 6 Albumin 3.3 g/dL 3.2-5.2 6 Globulin 2.6 g/dL 2-4 6 Albumin/Globulin Ratio 1.3 1-3 6 Total Bilirubin 0.40 mg/dL 0.2-1.0 6 Direct Bilirubin 0.10 mg/dL 0.03-0.18 6 Indirect Bilirubin 0.3 mg/dL 0.3-1.0 6 Alkaline Phosphatase 139 U/L High 34-104 6 Alt 17 U/L 7-52 6 Ast 18 U/L 13-39 6 Laboratory test finding 12/07/2016 Cardiolipin Iga < 9.4 APL 8 Cardiolipin Igg/Igm 12/07/2016 Phospholipid Ab IgM, S < 9.4 MPL 9 Phospholipid Ab IgG < 9.4 GPL 10 Laboratory test finding 12/07/2016 TSH (Thyroid Stim 0.68 mcIU/mL 0.34- 5.60 11 Horm) Free T4 (Free Thyroxine) 0.87 ng/dL 0.61-1.12 12 Vitamin B12 308 pg/mL 180-914 13 Comp Metabolic Panel 12/07/2016 Sodium 138 mmol/L [...] Egfr Non- 78.1 >60 Egfr 100.5 >60 14 Laboratory test finding 12/05/2016 Troponin-I (TnI) 0.01 ng/mL <0.04 15 Laboratory test finding 10/24/2016 Folic Acid (Folate) 7.05 ng/mL > 3.99 Vitamin B12 268 pg/mL 180-914 16 RPR 10/24/2016 Syphillis Igg W/Reflex RPR Nonreactive Nonreactive 17 Heavy Metal Blool 10/24/2016 Arsenic <1 ng/mL 18 Lead 1.2 mcg/dL 19 Mercury <1 ng/mL 20 Cadmium 0.4 ng/mL [address] Address See Comment 22 [facility] [address] [facility] Guardian First Name CABRERA Langston Guardian Last Name ABRAM SANTANA <SEE NOTE> 23 Venous/Capillary Heavy Metals Venous Patient Race WHITE Liver Function Panel 09/27/2016 Direct Bilirubin 0.10 mg/dL 0.03-0.18 Indirect Bilirubin 0.3 mg/dL 0.3-1.0 Laboratory test finding 09/27/2016 Erythrocyte Sed Rate 42 mm/Hr High 0- 40 Comp Metabolic Panel 09/27/2016 Sodium 137 mmol/L [...] Egfr Non- 71.3 >60 Egfr 91.7 >60 24 CBC Auto Diff 09/27/2016 White Blood Count [...] Egfr Non- 73.5 >60 Egfr 94.5 >60 25 Laboratory test finding 09/23/2016 Lipase < 10 U/L Low 11.0-82.0 C Reactive Protein 4.49 mg/L < 5.00 26 Troponin-I (TnI) 0.01 ng/mL <0.04 27 B-Type Natriuretic Peptide BNP 19 pg/mL 28 Inr/Protime 09/23/2016 Inr 1.51 High 0.89-1.11 Laboratory test finding 09/23/2016 Partial Thrombo Time 32.5 seconds 26.0 -36.3 PTT Lactic Acid 1.0 mmol/L 0.5-2.0 29 Laboratory test 03/03/2016 Troponin-I (TnI) 0.00 ng/mL <0.03 30 finding Xray 02/23/2016 X-Ray, Wrist, djd of 1st [facility] Complete, Min. Of 3 Views R X-Ray, Knee, Bilateral, 4 Or More Views wnl X-Ray, Tib/Fib, Two Views, Bilaterl wnl Xray 01/22/2016 X-Ray, Knee, Left, 4 Or More Views wnl 1 SEE RESULT BELOW Name: CABRERA VALVERDE : [address]: Abel Wood MD Acct: [id number] Unit: [id number] AGE: 72 Location: ED Re10/01/17 SEX: F Status: DEP ER SPEC: [id number] DIANA: 10/02/17-[address] [facility] DR: Abel Wood MD REQ: [id number] RECD: 10/02/17 STATUS: DHRUV BYRD DR: Richard Hensley DO _ SOURCE: URINE SPDESC: ORDERED: Urine Culture Procedure Result Reported Site Urine Culture Final 10/04/17- 918 ML No growth of clinically significant organisms * ML - MAIN LAB ([facility]) . END OF REPORT * ML=Testing performed at Main Lab DEPARTMENT OF PATHOLOGY, [address] [place] [address] Ji Madera M.D. Director MARILY # [id number] 2 SEE RESULT BELOW Name: CABRERA VALVERDE : [address]: Abel Wood MD Acct: [id number] Unit: [id number] AGE: 72 Location: ED Re10/01/17 SEX: F Status: DEP ER SPEC: [id number] DIANA: 10/01/[address] [facility] DR: Abel Wood MD REQ: [id number] RECD: 10/01/17 STATUS: DHRUV BYRD DR: Richard Hensley DO _ SOURCE: BLOOD,VENO SPDESC: ORDERED: Blood Cult Procedure Result Reported Site Aerobic Culture Bottle Final 10/06/17- 2304 ML No Growth Day 5 Anaerobic Culture Bottle Final 10/06/17- 2304 ML No Growth Day 5 * ML - MAIN LAB ([facility]) . END OF REPORT * ML=Testing performed at Main Lab DEPARTMENT OF PATHOLOGY, [address] [place] [address] Ji Madera M.D. Director [facility] # [id number] 3 Because ethnic data is not always readily [...] 15-29 5 Kidney failure <15 (or dialysis) 4 Normal Range 180 to 914 Indeterminate Range 145 to 180 Deficient Range <145 5 SEE RESULT BELOW Name: CABRERA VALVERDE : [address]: Wes Luna MD Acct: [id number] Unit: [id number] AGE: 72 Location: ED Re07/16/17 SEX: F Status: DEP ER SPEC: [id number] DIANA: 07/16/17-[address] [facility] DR: Wes Luna MD REQ: [id number] RECD: 07/16/17 STATUS: DHRUV BYRD DR: Richard Hensley DO _ SOURCE: URINE SPDESC: ORDERED: Urine Culture Procedure Result Reported Site Urine Culture Final 11/820 ML No Growth (<1,000 CFU/mL) * ML - [facility] ([facility]) . END OF REPORT * ML=Testing performed at [facility] Lab DEPARTMENT OF PATHOLOGY, [address] [place] [address] Ji Madera M.D. Director [facility] # [id number] 6 likely d/t medication as 5 prime nucleotidase is elevated 7 INTERPRETIVE INFORMATION: 5' Nucleotidase Test developed and characteristics determined by [employer]. See Compliance Statement B: [employer]/ Performed by [employer], [address] [place] [id number] [email or web address], Deangelo Cason MD - Lab. Director Test Performed by: [employer] [address] [place] [address] 8 REFERENCE VALUE <15.0 (Negative) Test Performed by: [facility] [address] [address] 9 REFERENCE VALUE <15.0 (Negative) 10 REFERENCE VALUE <15.0 (Negative) Test Performed by: [facility] [address] [address] 11 UNABLE TO DRAW LUP AND APCR AT [facility] 12 UNABLE TO DRAW LUP AND APCR AT [facility] LOCATION 13 Normal Range 180 to 914 Indeterminate Range 145 to 180 Deficient Range <145 14 Because ethnic data is not always readily [...] 15-29 5 Kidney failure <15 (or dialysis) 15 99th percentile=0.04 ng/mL Troponin results at [facility] and [facility] are not interchangeable. 16 Normal Range 180 to 914 Indeterminate Range 145 to 180 Deficient Range <145 17 Warning: A positive result is not useful for establishing a diagnosis of syphilis. In most situations, such a result may reflect a prior treated infection; a negative result can exclude a diagnosis of syphilis except for incubating or early primary disease. 18 Reference Value: 0-12 ADDITIONAL INFORMATION This test was developed and its performance characteristics determined by [facility] in a manner consistent with CLIA requirements. This test has not been cleared or approved by the U.S. Food and Drug Administration. 19 Reference Value: 0.0-4.9 ADDITIONAL INFORMATION Testing performed by Inductively Coupled Plasma-Mass Spectrometry (ICP-MS). This test was developed and its performance characteristics determined by [facility] in a manner consistent with CLIA requirements. This test has not been cleared or approved by the U.S. Food and Drug Administration. 20 Reference Value: 0-9 ADDITIONAL INFORMATION This test was developed and its performance characteristics determined by [facility] in a manner consistent with CLIA requirements. This test has not been cleared or approved by the U.S. Food and Drug Administration. 21 Reference Value: 0.0-4.9 ADDITIONAL INFORMATION This test was developed and its performance characteristics determined by [facility] in a manner consistent with CLIA requirements. This test has not been cleared or approved by the U.S. Food and Drug Administration. Test Performed by: [place] [address] [employer] Sales Professional: Ap Ortiz II, M.D., Ph.D. 22 RESULT: [facility] [address] [place] 24 Because ethnic data is not always readily [...] 15-29 5 Kidney failure <15 (or dialysis) 25 Because ethnic data is not always readily [...] 15-29 5 Kidney failure <15 (or dialysis) 26 Acute inflammation: >10.00 27 99th percentile=0.04 ng/mL Troponin results at [facility] and [facility] are not interchangeable. 28 >100 to <200 pg/mL: likely compensated congestive heart failure (CHF) 200 to 400 pg/mL: likely moderate CHF >400 pg/mL: likely moderate to severe CHF 29 [facility] Severe Sepsis and Septic Shock Management Bundle Measure requires all lactic acids initially measuring >2.0 mmol/L be repeated. 30 Reference Range and Interpretation: TnI (ng/mL) Interpretation Less Than 0.03 ng/mL Not supportive of diagnosis of [place] 0.03 - 0.50 ng/mL Indeterminate: suggest serial studies if clinically indicated. Greater than 0.5 ng/mL Consistent with diagnosis of [place] Procedures Date CPT Code Description Status 11/29/2017 19489 SC/Im Injections Completed 11/29/2017 74295 Allergy Injections-Multiple Completed 11/15/2017 00575 Allergy Injection X 1 Completed 10/27/2017 87905 Allergy Injections-Multiple Completed 10/13/2017 36443 Allergy Injections-Multiple Completed 09/29/2017 51651 Allergy Injections-Multiple Completed 09/12/2017 77727 Allergy Injections-Multiple Completed 07/20/2017 86443 Allergy Injections-Multiple Completed 07/06/2017 41478 Allergy Injections-Multiple Completed 06/22/2017 79302 Allergy Injections-Multiple Completed 05/25/2017 02135 Allergy Injections-Multiple Completed 05/11/2017 44349 Allergy Injections-Multiple Completed 04/14/2017 87757 Allergy Injections-Multiple Completed 03/24/2017 94263 Allergy Injections-Multiple Completed 03/10/2017 62319 Allergy Injections-Multiple Completed 02/24/2017 36007 Allergy Injections-Multiple Completed 02/08/2017 82694 Allergy Injections-Multiple Completed 01/20/2017 67274 Allergy Injections-Multiple Completed 01/06/2017 04403 Allergy Injections-Multiple Completed 12/23/2016 76039 Allergy Injections-Multiple Completed 12/09/2016 64514 Allergy Injections-Multiple Completed 11/25/2016 73767 Allergy Injections-Multiple Completed 11/11/2016 76638 Allergy Injections-Multiple Completed 10/31/2016 62931 Allergy Injections-Multiple Completed 10/17/2016 88325 Allergy Injections-Multiple Completed 10/05/2016 35894 Allergy Injections-Multiple Completed 09/20/2016 95566 Allergy Injections-Multiple Completed 09/06/2016 21470 Allergy Injections-Multiple Completed 08/23/2016 75904 Allergy Injections-Multiple Completed 08/09/2016 32342 Allergy Injections-Multiple Completed 07/26/2016 53654 Allergy Injections-Multiple Completed 07/12/2016 14054 Allergy Injections-Multiple Completed 06/28/2016 93910 Allergy Injections-Multiple Completed 06/14/2016 75234 Allergy Injections-Multiple Completed 05/31/2016 19068 Allergy Injections-Multiple Completed 05/17/2016 76168 Allergy Injections-Multiple Completed 05/03/2016 09662 Allergy Injections-Multiple Completed 04/19/2016 59421 Allergy Injections-Multiple Completed 04/05/2016 79540 Allergy Injections-Multiple Completed 03/21/2016 67779 Allergy Injections-Multiple Completed 03/08/2016 06352 Allergy Injections-Multiple Completed 03/04/2016 17808 Electrocardiogram Complete Completed 02/23/2016 24094 Allergy Injections-Multiple Completed 02/23/2016 42332 X-Ray Tibia And Fibula,Ap & Lateral Views Completed 02/23/2016 21942 X-Ray Knee, Complete Completed 02/23/2016 33856 X-Ray Wrist Three Views Completed 02/05/2016 91341 Allergy Injections-Multiple Completed 01/22/2016 38143 X-Ray Knee, Complete Completed 12/31/2015 71115 Allergy Injections-Multiple Completed 12/17/2015 98557 Allergy Injections-Multiple Completed Encounters Type Date Location Provider CPT E/M Dx Office Visit 11/29/2017 2:45p Main Office Ap Meredith M.D. 07351 R21 Office Visit 11/06/2017 1:40p Main Office Ayan Rivera 53110 R21 Office Visit 09/29/2017 10:00a Main Office Richard Hensley D.O. 89412 J30.1 F02.81 J30.9 J30.89 F01.51 F06.8 I69.911 Z91.83 Office Visit 08/31/2017 10:20a Main Office Ayan Rivera 92686 S00.33xA S80.02xA Z79.01 W10.1xxA Office Visit 08/15/2017 11:00a Main Office Richard Hensley D.O. 16933 R11.2 R94.5 Z79.01 Z12.31 Office Visit 07/17/2017 4:30p Main Office Richard Hensley D.O. 83258 M53.3 Office Visit 04/14/2017 11:00a Main Office Richard Hensley D.O. 95764 I87.002 Z86.711 Z79.01 J30.1 G47.30 Office Visit 04/03/2017 5:30p Main Office Moise June M.D. 61331 I83.93 Z86.711 Z79.01 R58 Office Visit 03/24/2017 1:45p Main Office Richard Hensley D.O. 07343 I83.93 J30.1 J30.89 J30.9 Office Visit 02/03/2017 2:00p Main Office Ap Meredith M.D. 97160 I80.02 Office Visit 12/13/2016 4:15p Main Office Ap Meredith M.D. 10292 Z86.73 R74.8 Office Visit 12/06/2016 3:45p Main Office Ap Meredith M.D. 53033 R10.11 Z86.73 R20.0 F06.8 Office Visit 11/11/2016 11:00a Main Office Ap Meredith M.D. 98887 F06.8 R94.02 R20.0 J30.89 J30.1 Office Visit 10/24/2016 10:00a Main Office Ap Meredith M.D. 49303 F06.8 Office Visit 09/27/2016 2:00p Main Office Ap Meredith M.D. 45534 R10.84 K59.00 Office Visit 06/23/2016 10:00a Main Office Ap Meredith M.D. 67943 I45.10 M18.9 Z86.711 Z79.01 Z71.89 Office Visit 03/15/2016 9:45a Main Office Moise June M.D. 66864 R07.89 Office Visit 03/04/2016 3:15p Main Office Ap Meredith M.D. 26681 M94.0 R07.89 I45.10 Office Visit 02/23/2016 4:45p Main Office Ap Meredith M.D. 49086 S60.211A S80.11xA S80.12xA R29.6 M18.9 M25.561 M25.562 Office Visit 01/22/2016 1:30p Main Office Ap Meredith M.D. 31282 S80.02xA J30.9 Z86.711 Z79.01 W01.0xxA Office Visit 12/15/2015 3:45p Main Office Ap Meredith M.D. 89407 K76.0 G31.84 J30.1 J30.9 Z86.711 Z86.718 Z79.01 E66.3 Z68.39 Plan of Care Future Appointment(s):12/14/2017 1:30 pm - Nurse's Schedule at Main Smukjf1111/29 - Ap Meredith M.D.R21 Rash and other nonspecific skin eruptionNew Medication:Hydrocortisone 2.5 %Follow up:stop the nystatin cream and start this ointment use it for about a week - it should help clear the rash up let us know if it persists
[2017-11-30 22:37] LABS: ABS Basophils 0 10^3/ul (0-0.2); ABS Eosinophils 0.1 10^3/ul (0-0.6); ABS Monocytes 0.6 10^3/ul (0-0.8); ABS Nucleated RBC 0 10^3/ul; Eosinophil % 0.7 % (0-6); Hematocrit 41 % (35-47); Hemoglobin 13.5 g/dl (12.0-16.0); Lymphocyte % 18.7 % (25-47); Mean Corpuscular HGB Conc 33 g/dl (31-36); Mean Corpuscular Hemoglobin 27 pg (27-31); Mean Corpuscular Volume 81 fL (80-97); Mean Platelet Volume 8.7 um3 (7.4-10.4); Nucleated Red Blood Cells % 0; Platelet Count 226 10^3/ul (150-450); Red Blood Count 4.98 10^6/ul (4.0-5.4); Red Cell Distribution Width 16 % (10.5-15); White Blood Count 10.6 10^3/ul (3.5-10.8)
[2017-11-30 22:55] LABS: EGFR Non-African American 70.1 (>60)
[2017-11-30] MEDS ORDERED: Iohexol 300* (CONTRAST) 10 ML SDV IV ONE (23:51)
[2017-12-01 01:42] VITALS: BP 110/52
--- NOTE | 2017-12-01 08:12 | RAD ---
Indication: Abdominal pain. Administered 119.2 ml of OMNIPAQUE 300 mg/ml CT of the abdomen and pelvis was performed after IV contrast administration. Due to technical factors not all the contrast was injected and the study is essentially noncontrast study with a small amount of contrast The lung bases demonstrate no pleural fluid, nodules or masses. Small pericardial effusion is noted with pericardial thickening adjacent to the left ventricle. Liver is normal in size. No focal lesions or intrahepatic ductal dilatation is noted. The spleen is normal in size. Pancreas demonstrates no mass effect or ductal dilatation. Common duct is not dilated. Patient is status post cholecystectomy. No adrenal lesions are noted. The kidneys demonstrates no hydronephrosis in either kidney. Aorta and inferior vena cava are unremarkable. No dilated loops of bowel are noted. Diverticulosis without definite diverticulitis is noted. No free fluid is identified. No hernias are noted. IMPRESSION: No abnormal masses or fluid collections are identified. Patient is status post cholecystectomy. Small pericardial effusion is unchanged from previous exam.
--- NOTE | 2017-12-01 17:08 | ED ---
Jayden Mason Stephanie, scribed for Jaime Tovar MD on 11/30/17 at 2043 . Complex/Multi-Sys Presentation - HPI Summary HPI Summary: The pt is a 72 y/o F presenting to the ED with c/o abd pain and R sided facial numbness that began at 15:00 today. The pt states the facial numbness began first and the abd pain followed. Symptoms include N/V. The pt denies dysuria. The pt states the pain decreased since onset. It is rated as a 5 in severity. Pt states simialr symptoms approximately 2 months ago. Pt denies any facial or extremity weakness. - History Of Current Complaint Chief Complaint: EDAbdPain Time Seen by Provider: 11/30/17 20:20 Hx Obtained From: Patient Onset/Duration: Sudden Onset, Lasting Hours - 4, Still Present Timing: Constant Associated Signs And Symptoms: Positive: Nausea, Vomiting, Abdominal Pain, Other - R sided facial numbness. Negative: Dysuria - Allergies/Home Medications Allergies/Adverse Reactions: Allergies Allergy/AdvReac Type Severity Reaction Status Date / Time MS Metoclopramide Allergy Severe Shortness Verified 12/05/16 00:09 [From Reglan] of Breath MS Celecoxib [From Celebrex] Allergy Intermediate Rash Verified 12/05/16 00:09 MS Cephalexin [From Keflex] Allergy Intermediate Rash Verified 12/05/16 00:09 MS Ciprofloxacin [From Cipro] Allergy Intermediate Rash Verified 12/05/16 00:09 MS Aspirin [Aspirin] Allergy Unknown Verified 12/05/16 00:09 Reaction Details MS Ceftriaxone AdvReac Intermediate PALPITATIONS, Verified 12/05/16 00:09 [From Rocephin] HALLUCINATION PMH/Surg Hx/FS Hx/Imm Hx Endocrine/Hematology History: Reports: Hx Anticoagulant Therapy Denies: Hx Diabetes, Hx Systemic Lupus Erythematosus, Hx Thyroid Disease, Hx Anemia Cardiovascular History: Reports: Hx Deep Vein Thrombosis, Hx Hypercholesterolemia Denies: Hx Aneurysm, Hx Angina, Hx Auto Implanted Cardiovert Defib, Hx Congestive Heart Failure, Hx Hypertension, Hx Pacemaker/ICD, Other Cardiovascular Problems/Disorders Respiratory History: Reports: Hx Asthma - environmental allergies, Hx Pulmonary Embolism, Hx Seasonal Allergies Denies: Hx Chronic Obstructive Pulmonary Disease (COPD), Hx Sleep Apnea GI History: Reports: Hx Gall Bladder Disease, Hx Gastroesophageal Reflux Disease Denies: Hx Cirrhosis, Hx Crohn's Disease, Hx Diverticulosis, Hx Irritable Bowel, Hx Ulcer History: Reports: Hx Renal Disease, Other Problems/Disorders - renal disease Denies: Hx Kidney Infection, Hx Kidney Stones Musculoskeletal History: Reports: Hx Arthritis, Hx Osteoporosis - 11/01/12 Denies: Hx Gout Sensory History: Reports: Hx Contacts or Glasses Denies: Hx Deafness, Hx Hearing Aid Opthamlomology History: Reports: Hx Contacts or Glasses Neurological History: Reports: Hx Migraine, Other Neuro Impairments/Disorders - migraines Denies: Hx Dementia, Hx Seizures Psychiatric History: Denies: Hx Anxiety, Hx Eating Disorder, Hx Depression, Hx Panic Disorder, Hx Schizophrenia, Hx Suicide Attempt, Hx Substance Abuse - Surgical History Surgery Procedure, Year, and Place: hysterectomy, rt breast biopsy, cholecystectomy, appendectomy Hx Anesthesia Reactions: No - Immunization History Date of Tetanus Vaccine: Unk Date of Influenza Vaccine: 05/26 Infectious Disease History: No Infectious Disease History: Denies: Hx Hepatitis, Hx Human Immunodeficiency Virus (HIV), Hx Tuberculosis , Traveled Outside the [place] in Last 30 Days - Family History Known Family History: Positive: Cardiac Disease, Hypertension Family History: Denies FHx breast cancer - Social History Occupation: Retired Lives: Assisted Living Alcohol Use: None Hx Substance Use: No Substance Use Type: Reports: None Hx Tobacco Use: Yes Smoking Status (MU): Former Smoker Review of Systems Negative: Fever Positive: Abdominal Pain, Vomiting, Nausea Negative: dysuria Positive: Numbness - R sided face All Other Systems Reviewed And Are Negative: Yes Physical Exam - Summary Physical Exam Summary: Appearance: Well-appearing, no distress, Well-nourished Skin: Warm, color reflects adequate perfusion Head: Normal Head/Face inspection Eyes: Conjunctiva clear ENT: Normal inspection Neck: Supple, no nodes, no JVD. Respiratory: Lungs clear, Normal breath sounds, no respiratory distress Cardio: RRR, No murmur, pulses normal, brisk capillary refill Abdomen: soft, moderate tenderness in R flank, mild RLQ tenderness, no guarding , no rebound Bowel sounds: present Musculoskeletal: Strength Intact/ ROM intact. No calf tenderness. No edema. Neuro: Alert, muscle tone normal, facial symmetry, speech normal, sensory/motor intact, cranial nerves II-VII intact, cerebellar intact Psychological: Normal Triage Information Reviewed: Yes Vital Signs On Initial Exam: Initial Vitals Temp Pulse Resp BP Pulse Ox 98.3 F 88 16 119/47 98 11/30/17 20:19 11/30/17 20:19 11/30/17 20:19 11/30/17 20:19 11/30/17 20:19 Vital Signs Reviewed: Yes Diagnostics - Vital Signs Vital Signs Temp Pulse Resp BP Pulse Ox 11/30/17 20:19 98.3 F 88 16 119/47 98 - Laboratory Result Diagrams: 11/30/17 22:11 11/30/17 22:11 Lab Statement: Any lab studies that have been ordered have been reviewed, and results considered in the medical decision making process. - CT Abdomen/Pelvis CT Interpretation: No Acute Changes CT Interpretation Completed By: Radiologist - Only a small amount of contrast is seen in the renal collecting systems and ureters. Please check to see whether contrast infiltrated or was incompletely injected. There is no bowel obstruction, free air, or free fluid. There is signmoid and left colon diverticulosis. No diverticulitis or colitis. Small hiatal hernia. R renal cyst. No urinary tract obstruction. Normal urinary bladder. Normal liver. Prior cholecystectomy. Normal spleen. Fatty atrophy of the pancreas. Nml adrenal glands. Osseous structures are intact. No acute abnormalities are identified. Note made of a very small pericardial effusion, present previously. Re-Evaluation - Re-Evaluation First Eval Re-Evaluation Time: 01:02 Change: Improved Comment: Pt resting comfortably in bed. pt abdominal pain and facial numbness resolved. pt toelrating po without difficulty. pt CN exam intact II-XII; Complex Multi-Symp Course/Dx Assessment/Plan: Unclear of exact etiology of pt's symptoms, likelyt inflammatory in nature. No indication or risk for acute CVA or SAH. Plan for symnptomatic tx with close f/u. - Diagnoses Differential Diagnoses/HQI/PQRI: CVA, Metabolic Abnormality, Urinary Tract Infection, Other - Gastritis, colitis, renal colic Provider Diagnoses: Abdominal pain, Facial paresthesia Discharge - Sign-Out/Discharge Documenting (check all that apply): Discharge - Discharge Plan Condition: Improved Disposition: HOME Prescriptions: Tramadol HCl/Acetaminophen [Ultracet Tablet] 1 each PO Q8HR PRN #10 tablet MDD 3 tabs PRN Reason: Pain Patient Education Materials: Acute Abdominal Pain (ED), Paresthesia (ED) Referrals: Richard Hensley DO [Primary Care Provider] - 2 Days - Billing Disposition and Condition Condition: IMPROVED Disposition: HOME The documentation as recorded by the Jayden beavers Stephanie accurately reflects the service I personally performed and the decisions made by me, Jaime Tovar MD.
== END 2017-12-01 01:40 | disposition home or self-care (01) ==
LOC: ED 20:06
DX: R10.9 Unspecified abdominal pain (principal); R20.2 Paresthesia of skin; R11.2 Nausea with vomiting, unspecified; Z79.01 Long term (current) use of anticoagulants; Z87.891 Personal history of nicotine dependence
CPT/HCPCS: 36415; 74177; 80053; 83605; 83690; 85025; 96374; 96375; 99283; J2270; J2405; Q9967

== ENCOUNTER 2017-12-05 19:30 | Observation (INO) | payer MEDICARE, MEDICAID ==
[2017-12-05] MEDS ORDERED: NS 0.9% 1000 ML* 1,000 ML IV ONE (19:51)
[2017-12-05] MEDS ORDERED: Ondansetron INJ* 2 MG/ML VIAL IV ONE (19:51)
[2017-12-05 20:23] LABS: INR 1.05 (0.77-1.02)
[2017-12-05 20:30] LABS: EGFR Non-African American 64.5 (>60)
--- NOTE | 2017-12-05 20:58 | RAD ---
INDICATION: Vomiting COMPARISON: None TECHNIQUE: 5 views the abdomen were obtained. FINDINGS: Image quality is limited by morbid obesity. There are no acute bony or soft tissue abnormalities. The bowel gas pattern is normal. There is a moderate amount of stool overlying the renal shadows. There are no obvious coarse calcifications overlying the expected location of the bilateral collecting systems or ureters. IMPRESSION: NO RADIOGRAPHICALLY APPARENT ACUTE ABNORMALITY.
--- NOTE | 2017-12-05 20:59 | RAD ---
INDICATION: Vomiting COMPARISON: Most recent comparison chest x-rays dated March 03, 2016 TECHNIQUE: Single AP view of the chest was obtained. FINDINGS: The heart and mediastinum exhibit normal size and contour. The lungs are grossly clear. There is no evidence of a large pleural effusion. Visualized bones are normal for the patient's age. IMPRESSION: No radiographic evidence for acute cardiopulmonary abnormality on this single AP view chest x-ray.
[2017-12-05 21:15] LABS: ABS Basophils 0 10^3/ul (0-0.2); ABS Eosinophils 0 10^3/ul (0-0.6); ABS Lymphocytes 0.5 10^3/ul (1.0-4.8); ABS Monocytes 0.4 10^3/ul (0-0.8); ABS Neutrophils 13.3 10^3/ul (1.5-7.7); ABS Nucleated RBC 0 10^3/ul; Eosinophil % 0.2 % (0-6); Hematocrit 45 % (35-47); Hemoglobin 14.9 g/dl (12.0-16.0); Lymphocyte % 3.6 % (25-47); Mean Corpuscular HGB Conc 33 g/dl (31-36); Mean Corpuscular Hemoglobin 27 pg (27-31); Mean Corpuscular Volume 81 fL (80-97); Mean Platelet Volume 9.2 um3 (7.4-10.4); Nucleated Red Blood Cells % 0; Platelet Count 259 10^3/ul (150-450); Red Blood Count 5.59 10^6/ul (4.0-5.4); Red Cell Distribution Width 16 % (10.5-15); White Blood Count 14.3 10^3/ul (3.5-10.8)
[2017-12-05] MEDS ORDERED: Iohexol 300* (CONTRAST) 10 ML SDV IV ONE (22:43)
[2017-12-06] MEDS ORDERED: Ondansetron INJ* 2 MG/ML VIAL IV ONE (00:25)
[2017-12-06] MEDS ORDERED: diPHENhydraMINE IV* 50 MG/ML 1 ml VIAL (BENADRYL) IV ONE (00:26)
[2017-12-06] MEDS ORDERED: NS 0.9% 1000 ML* 1,000 ML IV ONE (01:22)
[2017-12-06] MEDS ORDERED: PROCHLORPERAZINE INJ 5 MG/ML 2 ML VIAL IV ONE (02:28)
[2017-12-06] MEDS ORDERED: Dicyclomine CAP* 10 MG PO ONE (02:29)
--- NOTE | 2017-12-06 02:57 | ED ---
I, Leah Boyd, scribed for Noel Kaplan MD on 12/06/17 at 0021 . Progress - Progress Note Progress Note: This pt was s/o by Dr. Hernández, pending dispo, awaiting CT abd/pel. CT Abd/Pel, per radiologist, reveals stable small pericardial effusion. No definite acute pathology. Dr. Kaplan has reviewed this report. Re-Evaluation - Re-Evaluation First Eval Re-Evaluation Time: 01:17 Comment: Reviewed imaging and plan to admit pt. Course/Dx - Course Course Of Treatment: Pt with recurring RLQ pain and vomiting. Several episodes of vomiting here. CT neg for acute pathology. Similarly scanned 5d ago. UA pending. Will require admission. - Diagnoses Provider Diagnoses: Abdominal pain, RLQ abdominal pain, Intractable vomiting - Provider Notifications Discussed Care Of Patient With: Giovani Acevedo - Hospitalist Time Discussed With Above Provider: 01:19 Instructed by Provider To: Admit As Inpatient Discharge - Sign-Out/Discharge Documenting (check all that apply): Discharge - admit - Discharge Plan Condition: Stable Disposition: ADMITTED TO [facility] Referrals: Richard Hensley DO [Primary Care Provider] - - Billing Disposition and Condition Condition: STABLE Disposition: [facility] [place] The documentation as recorded by the jenniferibeOliver Nilda accurately reflects the service I personally performed and the decisions made by , Noel Kaplan MD.
[2017-12-06 03:53] LABS: Urine Appearance Cloudy; Urine Blood 1+ (Negative); Urine Color Yellow; Urine Ketones 1+ (Negative); Urine Protein Negative (Negative); Urine Specific Gravity 1.021 (1.010-1.030); Urine Urobilinogen Negative (Negative)
[2017-12-06] MEDS ORDERED: Albuterol 2.5 MG/3 ML NEB.SOL* (0.083%) INH PRN (04:49)
[2017-12-06] MEDS ORDERED: PROCHLORPERAZINE INJ 5 MG/ML 2 ML VIAL IV PRN (04:49)
[2017-12-06] MEDS ORDERED: Ondansetron INJ* 2 MG/ML VIAL IV PRN (04:49)
[2017-12-06] MEDS ORDERED: CMCS: Melatonin (NF) 3 MG TAB PO PRN (04:49)
[2017-12-06] MEDS ORDERED: Dicyclomine CAP* 10 MG PO PRN (04:51)
[2017-12-06] MEDS ORDERED: NS 0.9% 1000 ML* 1,000 ML IV SCH (05:00)
[2017-12-06] MEDS ORDERED: ALPRAZolam TAB* 0.25 MG PO PRN (05:40)
--- NOTE | 2017-12-06 05:42 | HP ---
H&P (Free Text) History and Physical: PCP: Dr Meredith Date/Time: 12/06/2017 8509 CC: abdominal pain, N/V HPI: Mrs Pepper is a 72YO morbidly obese white female HX DM2, HTN, HLD, & DVT/PE who presents with onset yesterday evening of sharp to aching hypogastric pain associated with N/V w/o black or bloody content, mild SOB, R facial & R anterior chest numbness/tingling, and generalized weakness. She denies chest pain, F/C, sweats, diarrhea, focal weakness, change in speech/swallow, palpitations, light-headedness, or other issues. She became concerned and called EMS. She has had similar episodes evaluated at [facility] ED on 10/01/2017 & . PMedHx DM2 HX BLE DVT w/ B PE HTN HLD depression anxiety Ambulatory Orders Tramadol HCl/Acetaminophen [Ultracet Tablet] 1 each PO Q8HR PRN #10 tablet MDD 3 tabs 12/01/17 Amitriptyline TAB* [Elavil TAB*] 75 mg PO BEDTIME 12/05/17 Hydrocortisone 1% CREAM* [Hytone (Topical) 1%*] 1 applic TOPICAL DAILY 12/05/17 LevoCETirizine TAB (NF) [Xyzal TAB (NF)] 5 mg PO DAILY 12/05/17 Montelukast Sodium TAB* [Singulair TAB*] 10 mg PO DAILY 12/05/17 Nystatin CREAM* [Nystatin Cream*] 1 applic TOPICAL BID 12/05/17 Ranitidine TAB (NF) [Zantac TAB (NF)] 150 mg PO DAILY 12/05/17 Rivaroxaban TAB(*) [Xarelto 20 mg] 20 mg PO DAILY 12/05/17 Simvastatin (NF) [Zocor (NF)] 40 mg PO DAILY 12/05/17 Allergies metoclopramide [From Reglan] Allergy (Intermediate, Verified 12/06/17 02:27) Shortness of Breath celecoxib [From Celebrex] Allergy (Mild, Verified 12/06/17 02:27) Rash cephalexin [From Keflex] Allergy (Mild, Verified 12/06/17 02:27) Rash ciprofloxacin [From Cipro] Allergy (Mild, Verified 12/06/17 02:27) Rash aspirin Allergy (Verified 12/05/17 20:12) Unknown Reaction Details ceftriaxone [From Rocephin] Adverse Reaction (Verified 12/06/17 02:27) Hallucinations PSurgHx cholecystectomy hysterectomy SocHx: quit >40 years ago, no alcohol or recreational drugs; , lives in senior [facility] at [facility]; worked as a tool specialist for [employer]; full code status FamHx: Mother: passed at an unknown age of cancer in the liver; Father: passed at an unknown age from drowning ROS: as above, otherwise reviewed and all were negative vitals: Vital Signs Temp 36.8 C 12/05/17 21:30 Pulse 117 12/06/17 04:30 Resp 18 12/06/17 05:05 BP 122/69 12/06/17 04:30 Pulse Ox 98 12/06/17 04:30 Intake & Output 12/05/17 12/05/17 12/06/17 11:59 23:59 11:59 Intake Total 1000 Balance 1000 Weight 99.79 kg Intake: IV Fluids 1000 Constitutional: NAD, normally developed, morbidly obese white female HEENM: atraumatic; sclera/conjunctiva: anicteric/clear; hearing: clinically intact; oropharynx: clear, moist Neck: soft tissue: no nuchal rigidity; thyroid: normal Pulmonary: clear to auscultation bilaterally, good aeration, no accessory muscle use CV: RR/RR, normal S1S2, no carotid bruit, no jugular venous distention, 2+ B DP/ PT, no edema Abdominal: soft, non-distended, non-tender, no rebound/guarding/rigidity, normoactive bowel sounds, no hepatosplenomegaly or masses, no costovertebral angle tenderness Musculoskeletal: general: grossly intact, no tenderness w/ palpation Integumental: normal appearance and texture of exposed skin Psychiatric orientation: AA&O to PPS affect: calm mood: cooperative eye contact: poor content: questionable reliability responses: mildly slowed insight: fair to poor Testing: Lab Results 12/05/17 12/05/17 12/05/17 Range/Units 20:00 20:00 20:55 WBC (3.5-10.8) 10^3/ul RBC (4.0-5.4) 10^6/ul Hgb (12.0-16.0) g/dl Hct (35-47) % MCV (80-97) fL MCH (27-31) pg MCHC (31-36) g/dl RDW (10.5-15) % Plt Count (150-450) 10^3/ul MPV (7.4-10.4) um3 Neut % (Auto) (38-83) % Lymph % (Auto) (25-47) % [place] % (Auto) (0-7) % Eos % (Auto) (0-6) % Baso % (Auto) (0-2) % Absolute Neuts (auto) (1.5-7.7) 10^3/ul Absolute Lymphs (auto) (1.0-4.8) 10^3/ul Absolute Monos (auto) (0-0.8) 10^3/ul Absolute Eos (auto) (0-0.6) 10^3/ul Absolute Basos (auto) (0-0.2) 10^3/ul Absolute Nucleated RBC 10^3/ul Nucleated RBC % INR (Anticoag Therapy) 1.05 H (0.77-1.02) APTT 28.6 (26.0-36.3) seconds Sodium 138 L (139-145) mmol/L Potassium 4.1 (3.5-5.0) mmol/L Chloride 103 (101-111) mmol/L Carbon Dioxide 24 (22-32) mmol/L Anion Gap 11 (2-11) mmol/L BUN 15 (6-24) mg/dL Creatinine 0.86 (0.51-0.95) mg/dL Est GFR ( Amer) 83.0 (>60) Est GFR (Non-Af Amer) 64.5 (>60) BUN/Creatinine Ratio 17.4 (8-20) Glucose 162 H (70-100) mg/dL Lactic Acid 1.8 (0.5-2.0) mmol/L Calcium 9.5 (8.6-10.3) mg/dL Total Bilirubin 0.60 (0.2-1.0) mg/dL AST 22 (13-39) U/L ALT 21 (7-52) U/L Alkaline Phosphatase 153 H (34-104) U/L Troponin I 0.00 (<0.04) ng/mL Total Protein 7.2 (6.4-8.9) g/dL Albumin 3.8 (3.2-5.2) g/dL Globulin 3.4 (2-4) g/dL Albumin/Globulin Ratio 1.1 (1-3) Lipase < 10 L (11.0-82.0) U/L Urine Color Urine Appearance Urine pH (5-9) Ur Specific [place] (1.010-1.030) Urine Protein (Negative) Urine Ketones (Negative) Urine Blood (Negative) Urine Nitrate (Negative) Urine Bilirubin (Negative) Urine Urobilinogen (Negative) Ur Leukocyte Esterase (Negative) Urine WBC (Auto) (Absent) Urine RBC (Auto) (Absent) Ur Squamous Epith Cells (Absent) Urine Bacteria (Absent) Urine Glucose (Negative) 12/05/17 12/06/17 12/06/17 Range/Units 20:55 01:30 01:51 WBC 14.3 H (3.5-10.8) 10^3/ul RBC 5.59 H (4.0-5.4) 10^6/ul Hgb 14.9 (12.0-16.0) g/dl Hct 45 (35-47) % MCV 81 (80-97) fL MCH 27 (27-31) pg MCHC 33 (31-36) g/dl RDW 16 H (10.5-15) % Plt Count 259 (150-450) 10^3/ul MPV 9.2 (7.4-10.4) um3 Neut % (Auto) 93.3 H (38-83) % Lymph % (Auto) 3.6 L (25-47) % [place] % (Auto) 2.7 (0-7) % Eos % (Auto) 0.2 (0-6) % Baso % (Auto) 0.2 (0-2) % Absolute Neuts (auto) 13.3 H (1.5-7.7) 10^3/ul Absolute Lymphs (auto) 0.5 L (1.0-4.8) 10^3/ul Absolute Monos (auto) 0.4 (0-0.8) 10^3/ul Absolute Eos (auto) 0 (0-0.6) 10^3/ul Absolute Basos (auto) 0 (0-0.2) 10^3/ul Absolute Nucleated RBC 0 10^3/ul Nucleated RBC % 0 INR (Anticoag Therapy) (0.77-1.02) APTT (26.0-36.3) seconds Sodium (139-145) mmol/L Potassium (3.5-5.0) mmol/L Chloride (101-111) mmol/L Carbon Dioxide (22-32) mmol/L Anion Gap (2-11) mmol/L BUN (6-24) mg/dL Creatinine (0.51-0.95) mg/dL Est GFR ( Amer) (>60) Est GFR (Non-Af Amer) (>60) BUN/Creatinine Ratio (8-20) Glucose (70-100) mg/dL Lactic Acid 1.4 (0.5-2.0) mmol/L Calcium (8.6-10.3) mg/dL Total Bilirubin (0.2-1.0) mg/dL AST (13-39) U/L ALT (7-52) U/L Alkaline Phosphatase (34-104) U/L Troponin I (<0.04) ng/mL Total Protein (6.4-8.9) g/dL Albumin (3.2-5.2) g/dL Globulin (2-4) g/dL Albumin/Globulin Ratio (1-3) Lipase (11.0-82.0) U/L Urine Color Yellow Urine Appearance Cloudy Urine pH 6.0 (5-9) Ur Specific [place] 1.021 (1.010-1.030) Urine Protein Negative (Negative) Urine Ketones 1+ A (Negative) Urine Blood 1+ A (Negative) Urine Nitrate Negative (Negative) Urine Bilirubin Negative (Negative) Urine Urobilinogen Negative (Negative) Ur Leukocyte Esterase Negative (Negative) Urine WBC (Auto) Trace(0-5/hpf) (Absent) Urine RBC (Auto) 3+(>10/hpf) A (Absent) Ur Squamous Epith Cells Present A (Absent) Urine Bacteria Absent (Absent) Urine Glucose 3+(>=500 mg/dl) A (Negative) ECG, personally reviewed: sinus tachycardia, RBBB rate 106, T-wave inversions V1 -3 CXR, personally reviewed: IMPRESSION: No radiographic evidence for acute cardiopulmonary abnormality on this single AP view chest x-ray. CT abd/pel WO, personally reviewed: IMPRESSION: Stable small pericardial effusion. No definite acute pathology. Impression: 72F HX DM2, HTN, HLD, & DVT/PE presents with recurrent abdominal pain, N/V, & R facial N/T DIAGNOSIS & PLAN Primary abdominal pain w/ N/V : unclear etiology : IVFs : if persistent, would consider gastric emptying study : clear liquid diet : supportive care R facial & R anterior chest N/T w/o weakness : suspect anxiety driven : alprazolam PO PRN : non-dermatomal, no cerebral correlation Secondary DM2 : check A1c : consistent carb diet : correctional insulin HX BLE DVT w/ B PE : continue rivaroxaban HLD : continue simvastatin GERD : continue ranitidine Admission Rational: observation for abdominal pain, N/V DVTp: continue rivaroxaban Code Status: full HCP: daughterEvelyn
[2017-12-06] MEDS: Acetaminophen TAB* 325 MG PO PRN ×2 (06:19→14:19)
[2017-12-06] MEDS: Omeprazole CAP* 20 MG PO SCH (06:19)
[2017-12-06] MEDS: Insulin LISPRO* 1 UNITS UNIT SUBCUT SCH ×5 (06:22→22:25)
[2017-12-06 06:39] LABS: Hematocrit 43 % (35-47); Hemoglobin 14.2 g/dl (12.0-16.0); Mean Corpuscular HGB Conc 33 g/dl (31-36); Mean Corpuscular Hemoglobin 27 pg (27-31); Mean Corpuscular Volume 81 fL (80-97); Mean Platelet Volume 8.9 um3 (7.4-10.4); Platelet Count 238 10^3/ul (150-450); Red Blood Count 5.24 10^6/ul (4.0-5.4); Red Cell Distribution Width 16 % (10.5-15); White Blood Count 10.8 10^3/ul (3.5-10.8)
[2017-12-06 07:01] LABS: EGFR Non-African American 72.2 (>60)
--- NOTE | 2017-12-06 08:02 | RAD ---
CLINICAL HISTORY: Abdominal pain, diverticulitis COMPARISON: December 01, 2017 TECHNIQUE: Multiple contiguous axial CT scans were obtained of the abdomen and pelvis, without intravenous contrast enhancement. Coronal and sagittal multiplanar reformations are submitted for review. Oral contrast was administered. FINDINGS: The study is limited by the lack of intravenous contrast. This limits evaluation of the solid organs and vasculature. LUNG BASES: The lung bases are clear. Again noted is a small pericardial effusion. LIVER: The liver is normal in shape, size, contour, and attenuation. BILE DUCTS: There is no intrahepatic or extrahepatic biliary dilatation. GALLBLADDER: The gallbladder is not visualized. Surgical clips are noted in the gallbladder fossa. PANCREAS: There is fatty atrophy of the pancreas. SPLEEN: Normal in size and appearance. UPPER GI TRACT: Evaluation of the gastrointestinal tract is limited by incomplete gastric distention. The upper GI tract is unremarkable. SMALL BOWEL AND MESENTERY: The small bowel is normal in contour, course, and caliber. There is no obstruction or dilatation. COLON: There is diverticulosis of the descending and sigmoid colon. There is no Change. ADRENALS: Normal bilaterally. KIDNEYS: The kidneys are normal in shape, size, contour, and axis. There is no hydronephrosis or nephrolithiasis. BLADDER: The bladder is smooth in contour. PELVIC ORGANS: The pelvic organs are not visualized. AORTA: There is calcific atherosclerotic disease of the abdominal aorta and its branches, without aneurysmal dilatation IVC: Unremarkable LYMPH NODES: There is no lymphadenopathy by size criteria. ABDOMINAL WALL: There is no evidence for abdominal wall hernia. BONES AND SOFT TISSUES: Mild degenerative changes are noted. OTHER: None IMPRESSION: 1. STABLE SMALL PERICARDIAL EFFUSION. 2. DIVERTICULOSIS.
[2017-12-06] MEDS: Atorvastatin* 20 MG TAB PO SCH (08:43)
[2017-12-06] MEDS: Rivaroxaban TAB(*) 20 MG TAB PO SCH (08:43)
[2017-12-06] MEDS: Montelukast Sodium TAB* 10 MG PO SCH (08:43)
[2017-12-06] MEDS ORDERED: Famotidine TAB* 20 MG PO SCH (09:00)
[2017-12-06] MEDS ORDERED: Docusate CAP* 100 MG PO SCH (09:00)
[2017-12-06] MEDS: traMADol TAB* 50 MG PO PRN (10:10)
--- NOTE | 2017-12-06 13:33 | ED ---
Eber Mason Jennifer, scribed for Riley Hernández on 12/05/17 at 1950 . Abdominal Pain/Female - HPI Summary HPI Summary: The patient is a 72 year old female who arrived via EMS for abdominal pain, nausea, and vomiting today. The patient reports she was sitting at home when she suddenly began vomiting. She additionally complains of difficulty breathing. The patient denies diarrhea, chest pain, and shortness of breath. - History of Current Complaint Chief Complaint: EDNauseaVomitDiarrh Stated Complaint: VOMITTING Time Seen by Provider: 12/05/17 19:38 Hx Obtained From: Patient Onset/Duration: Sudden Onset, Still Present Timing: Constant Severity Initially: Mild Severity Currently: Moderate Pain Intensity: 0 Pain Scale Used: 0-10 Numeric Location: Diffuse Radiates: No Aggravating Factor(s): Nothing Alleviating Factor(s): Nothing Associated Signs and Symptoms: Positive: Other: - nausea, vomiting. NEGATIVE: diarrhea, shortness of breath, chest dominique Allergies/Adverse Reactions: Allergies Allergy/AdvReac Type Severity Reaction Status Date / Time metoclopramide [From Reglan] Allergy Intermediate Shortness Verified 12/06/17 02 :27 of Breath celecoxib [From Celebrex] Allergy Mild Rash Verified 12/06/17 02:27 cephalexin [From Keflex] Allergy Mild Rash Verified 12/06/17 02:27 ciprofloxacin [From Cipro] Allergy Mild Rash Verified 12/06/17 02:27 aspirin Allergy Unknown Verified 12/05/17 20:12 Reaction Details ceftriaxone [From Rocephin] AdvReac Hallucinati Verified 12/06/17 02:27 ons Home Medications: Home Medications Amitriptyline TAB* [Elavil TAB*] 75 mg PO BEDTIME 12/05/17 [History Confirmed ] Hydrocortisone 1% CREAM* [Hytone (Topical) 1%*] 1 applic TOPICAL DAILY 12/05/17 [History Confirmed 12/05/17] LevoCETirizine TAB (NF) [Xyzal TAB (NF)] 5 mg PO DAILY 12/05/17 [History Confirmed 12/05/17] Montelukast Sodium TAB* [Singulair TAB*] 10 mg PO DAILY 12/05/17 [History Confirmed 12/05/17] Nystatin CREAM* [Nystatin Cream*] 1 applic TOPICAL BID 12/05/17 [History Confirmed 12/05/17] Ranitidine TAB (NF) [Zantac TAB (NF)] 150 mg PO DAILY 12/05/17 [History Confirmed 12/05/17] Rivaroxaban TAB(*) [Xarelto 20 mg] 20 mg PO DAILY 12/05/17 [History Confirmed ] Simvastatin (NF) [Zocor (NF)] 40 mg PO DAILY 12/05/17 [History Confirmed ] PMH/Surg Hx/FS Hx/Imm Hx Endocrine/Hematology History: Reports: Hx Anticoagulant Therapy Denies: Hx Diabetes, Hx Systemic Lupus Erythematosus, Hx Thyroid Disease, Hx Anemia Cardiovascular History: Reports: Hx Deep Vein Thrombosis, Hx Hypercholesterolemia Denies: Hx Aneurysm, Hx Angina, Hx Auto Implanted Cardiovert Defib, Hx Congestive Heart Failure, Hx Hypertension, Hx Pacemaker/ICD, Other Cardiovascular Problems/Disorders Respiratory History: Reports: Hx Asthma - environmental allergies, Hx Pulmonary Embolism, Hx Seasonal Allergies Denies: Hx Chronic Obstructive Pulmonary Disease (COPD), Hx Sleep Apnea GI History: Reports: Hx Gall Bladder Disease, Hx Gastroesophageal Reflux Disease Denies: Hx Cirrhosis, Hx Crohn's Disease, Hx Diverticulosis, Hx Irritable Bowel, Hx Ulcer History: Reports: Hx Renal Disease, Other Problems/Disorders - renal disease Denies: Hx Kidney Infection, Hx Kidney Stones Musculoskeletal History: Reports: Hx Arthritis, Hx Osteoporosis - 11/01/12 Denies: Hx Gout Sensory History: Reports: Hx Contacts or Glasses Denies: Hx Deafness, Hx Hearing Aid Opthamlomology History: Reports: Hx Contacts or Glasses Neurological History: Reports: Hx Migraine, Other Neuro Impairments/Disorders - migraines Denies: Hx Dementia, Hx Seizures Psychiatric History: Denies: Hx Anxiety, Hx Eating Disorder, Hx Depression, Hx Panic Disorder, Hx Schizophrenia, Hx Suicide Attempt, Hx Substance Abuse - Surgical History Surgery Procedure, Year, and Place: hysterectomy, rt breast biopsy, cholecystectomy, appendectomy Hx Anesthesia Reactions: No - Immunization History Date of Tetanus Vaccine: Unk Date of Influenza Vaccine: 05/26 Infectious Disease History: No Infectious Disease History: Denies: Hx Hepatitis, Hx Human Immunodeficiency Virus (HIV), Hx Tuberculosis , Traveled Outside the [place] in Last 30 Days - Family History Known Family History: Positive: Cardiac Disease, Hypertension Family History: Denies FHx breast cancer - Social History Alcohol Use: None Hx Substance Use: No Substance Use Type: Reports: None Hx Tobacco Use: Yes Smoking Status (MU): Former Smoker Review of Systems Negative: Chest Pain Positive: Other - Difficulty breathing. Negative: Shortness Of Breath Positive: Abdominal Pain, Vomiting, Nausea. Negative: Diarrhea All Other Systems Reviewed And Are Negative: Yes Physical Exam - Summary Physical Exam Summary: Appearance: Well appearing, no pain distress Skin: warm, dry, reflects adequate perfusion Head/face: normal Eyes: EOMI, [place] ENT: normal Neck: supple, non-tender Respiratory: CTA, breath sounds present Cardiovascular: RRR, pulses symmetrical ~ Abdomen: diffuse tenderness in abdomen. soft Bowel: present Musculoskeletal: normal, strength/ROM intact Neuro: normal, sensory motor intact, A&Ox3 Triage Information Reviewed: Yes Vital Signs On Initial Exam: Initial Vitals Temp Pulse Resp BP Pulse Ox 98.5 F 106 20 161/72 96 12/05/17 19:36 12/05/17 19:36 12/05/17 19:36 12/05/17 19:36 12/05/17 19:36 Vital Signs Reviewed: Yes Diagnostics - Vital Signs Vital Signs Temp Pulse Resp BP Pulse Ox 12/05/17 19:36 98.5 F 106 20 161/72 96 - Laboratory Lab Results: Lab Results 12/05/17 12/05/17 12/05/17 Range/Units 20:00 20:00 20:55 WBC (3.5-10.8) 10^3/ul RBC (4.0-5.4) 10^6/ul Hgb (12.0-16.0) g/dl Hct (35-47) % MCV (80-97) fL MCH (27-31) pg MCHC (31-36) g/dl RDW (10.5-15) % Plt Count (150-450) 10^3/ul MPV (7.4-10.4) um3 Neut % (Auto) (38-83) % Lymph % (Auto) (25-47) % [place] % (Auto) (0-7) % Eos % (Auto) (0-6) % Baso % (Auto) (0-2) % Absolute Neuts (auto) (1.5-7.7) 10^3/ul Absolute Lymphs (auto) (1.0-4.8) 10^3/ul Absolute Monos (auto) (0-0.8) 10^3/ul Absolute Eos (auto) (0-0.6) 10^3/ul Absolute Basos (auto) (0-0.2) 10^3/ul Absolute Nucleated RBC 10^3/ul Nucleated RBC % INR (Anticoag Therapy) 1.05 H (0.77-1.02) APTT 28.6 (26.0-36.3) seconds Sodium 138 L (139-145) mmol/L Potassium 4.1 (3.5-5.0) mmol/L Chloride 103 (101-111) mmol/L Carbon Dioxide 24 (22-32) mmol/L Anion Gap 11 (2-11) mmol/L BUN 15 (6-24) mg/dL Creatinine 0.86 (0.51-0.95) mg/dL Est GFR ( Amer) 83.0 (>60) Est GFR (Non-Af Amer) 64.5 (>60) BUN/Creatinine Ratio 17.4 (8-20) Glucose 162 H (70-100) mg/dL Hemoglobin A1c (4.0-5.6) % Lactic Acid 1.8 (0.5-2.0) mmol/L Calcium 9.5 (8.6-10.3) mg/dL Total Bilirubin 0.60 (0.2-1.0) mg/dL AST 22 (13-39) U/L ALT 21 (7-52) U/L Alkaline Phosphatase 153 H (34-104) U/L Troponin I 0.00 (<0.04) ng/mL Total Protein 7.2 (6.4-8.9) g/dL Albumin 3.8 (3.2-5.2) g/dL Globulin 3.4 (2-4) g/dL Albumin/Globulin Ratio 1.1 (1-3) Lipase < 10 L (11.0-82.0) U/L Urine Color Urine Appearance Urine pH (5-9) Ur Specific [place] (1.010-1.030) Urine Protein (Negative) Urine Ketones (Negative) Urine Blood (Negative) Urine Nitrate (Negative) Urine Bilirubin (Negative) Urine Urobilinogen (Negative) Ur Leukocyte Esterase (Negative) Urine WBC (Auto) (Absent) Urine RBC (Auto) (Absent) Ur Squamous Epith Cells (Absent) Urine Bacteria (Absent) Urine Glucose (Negative) 12/05/17 12/05/17 12/06/17 Range/Units 20:55 20:55 01:30 WBC 14.3 H (3.5-10.8) 10^3/ul RBC 5.59 H (4.0-5.4) 10^6/ul Hgb 14.9 (12.0-16.0) g/dl Hct 45 (35-47) % MCV 81 (80-97) fL MCH 27 (27-31) pg MCHC 33 (31-36) g/dl RDW 16 H (10.5-15) % Plt Count 259 (150-450) 10^3/ul MPV 9.2 (7.4-10.4) um3 Neut % (Auto) 93.3 H (38-83) % Lymph % (Auto) 3.6 L (25-47) % [place] % (Auto) 2.7 (0-7) % Eos % (Auto) 0.2 (0-6) % Baso % (Auto) 0.2 (0-2) % Absolute Neuts (auto) 13.3 H (1.5-7.7) 10^3/ul Absolute Lymphs (auto) 0.5 L (1.0-4.8) 10^3/ul Absolute Monos (auto) 0.4 (0-0.8) 10^3/ul Absolute Eos (auto) 0 (0-0.6) 10^3/ul Absolute Basos (auto) 0 (0-0.2) 10^3/ul Absolute Nucleated RBC 0 10^3/ul Nucleated RBC % 0 INR (Anticoag Therapy) (0.77-1.02) APTT (26.0-36.3) seconds Sodium (139-145) mmol/L Potassium (3.5-5.0) mmol/L Chloride (101-111) mmol/L Carbon Dioxide (22-32) mmol/L Anion Gap (2-11) mmol/L BUN (6-24) mg/dL Creatinine (0.51-0.95) mg/dL Est GFR ( Amer) (>60) Est GFR (Non-Af Amer) (>60) BUN/Creatinine Ratio (8-20) Glucose (70-100) mg/dL Hemoglobin A1c 6.3 H (4.0-5.6) % Lactic Acid (0.5-2.0) mmol/L Calcium (8.6-10.3) mg/dL Total Bilirubin (0.2-1.0) mg/dL AST (13-39) U/L ALT (7-52) U/L Alkaline Phosphatase (34-104) U/L Troponin I (<0.04) ng/mL Total Protein (6.4-8.9) g/dL Albumin (3.2-5.2) g/dL Globulin (2-4) g/dL Albumin/Globulin Ratio (1-3) Lipase (11.0-82.0) U/L Urine Color Yellow Urine Appearance Cloudy Urine pH 6.0 (5-9) Ur Specific [place] 1.021 (1.010-1.030) Urine Protein Negative (Negative) Urine Ketones 1+ A (Negative) Urine Blood 1+ A (Negative) Urine Nitrate Negative (Negative) Urine Bilirubin Negative (Negative) Urine Urobilinogen Negative (Negative) Ur Leukocyte Esterase Negative (Negative) Urine WBC (Auto) Trace(0-5/hpf) (Absent) Urine RBC (Auto) 3+(>10/hpf) A (Absent) Ur Squamous Epith Cells Present A (Absent) Urine Bacteria Absent (Absent) Urine Glucose 3+(>=500 mg/dl) A (Negative) 12/06/17 Range/Units 01:51 WBC (3.5-10.8) 10^3/ul RBC (4.0-5.4) 10^6/ul Hgb (12.0-16.0) g/dl Hct (35-47) % MCV (80-97) fL MCH (27-31) pg MCHC (31-36) g/dl RDW (10.5-15) % Plt Count (150-450) 10^3/ul MPV (7.4-10.4) um3 Neut % (Auto) (38-83) % Lymph % (Auto) (25-47) % [place] % (Auto) (0-7) % Eos % (Auto) (0-6) % Baso % (Auto) (0-2) % Absolute Neuts (auto) (1.5-7.7) 10^3/ul Absolute Lymphs (auto) (1.0-4.8) 10^3/ul Absolute Monos (auto) (0-0.8) 10^3/ul Absolute Eos (auto) (0-0.6) 10^3/ul Absolute Basos (auto) (0-0.2) 10^3/ul Absolute Nucleated RBC 10^3/ul Nucleated RBC % INR (Anticoag Therapy) (0.77-1.02) APTT (26.0-36.3) seconds Sodium (139-145) mmol/L Potassium (3.5-5.0) mmol/L Chloride (101-111) mmol/L Carbon Dioxide (22-32) mmol/L Anion Gap (2-11) mmol/L BUN (6-24) mg/dL Creatinine (0.51-0.95) mg/dL Est GFR ( Amer) (>60) Est GFR (Non-Af Amer) (>60) BUN/Creatinine Ratio (8-20) Glucose (70-100) mg/dL Hemoglobin A1c (4.0-5.6) % Lactic Acid 1.4 (0.5-2.0) mmol/L Calcium (8.6-10.3) mg/dL Total Bilirubin (0.2-1.0) mg/dL AST (13-39) U/L ALT (7-52) U/L Alkaline Phosphatase (34-104) U/L Troponin I (<0.04) ng/mL Total Protein (6.4-8.9) g/dL Albumin (3.2-5.2) g/dL Globulin (2-4) g/dL Albumin/Globulin Ratio (1-3) Lipase (11.0-82.0) U/L Urine Color Urine Appearance Urine pH (5-9) Ur Specific [place] (1.010-1.030) Urine Protein (Negative) Urine Ketones (Negative) Urine Blood (Negative) Urine Nitrate (Negative) Urine Bilirubin (Negative) Urine Urobilinogen (Negative) Ur Leukocyte Esterase (Negative) Urine WBC (Auto) (Absent) Urine RBC (Auto) (Absent) Ur Squamous Epith Cells (Absent) Urine Bacteria (Absent) Urine Glucose (Negative) Result Diagrams: 12/06/17 06:02 12/06/17 06:02 Lab Statement: Any lab studies that have been ordered have been reviewed, and results considered in the medical decision making process. - Radiology ABD XR Xray Interpretation: No Acute Changes - NO RADIOGRAPHICALLY APPARENT ACUTE ABNORMALITY. Dr. Hernández has reviewed this report. Radiology Interpretation Completed By: Radiologist CXR Xray Interpretation: No Acute Changes - No radiographic evidence for acute cardiopulmonary abnormality on this single AP view chest x-ray. Dr. Hernández has reviewed this report. Radiology Interpretation Completed By: Radiologist - EKG 19:58 Cardiac Rate: Tachycardia EKG Rhythm: Sinus Tachycardia - 106 BPM EKG Interpretation: with RBBB EKG Comparison: No Significant Change Re-Evaluation - Re-Evaluation First Eval Re-Evaluation Time: 01:17 Comment: Reviewed imaging and plan to admit pt. Abdominal Pain Fem Course/Dx - Course Course Of Treatment: The patient is a 72 year old female who arrived via EMS for abdominal pain, nausea, and vomiting today. In the ED course the patient was given Zofran and IV fluids. Bloodwork and Urinalysis were obtained. Abdominal XR and CXR were obtained. The patient is diagnosed with abdominal pain. The patient is signed out to Dr. Kaplan pending CT abd/pel. - Diagnoses Provider Diagnoses: Abdominal pain, RLQ abdominal pain, Intractable vomiting Discharge - Sign-Out/Discharge Documenting (check all that apply): Sign-Out Patient Signing out patient TO: Nole Kaplan - pending CT Abd/Pel - Discharge Plan Condition: Stable Disposition: ADMITTED TO [facility] - Billing Disposition and Condition Condition: STABLE Disposition: [facility] The documentation as recorded by the Eber beavers Jennifer accurately reflects the service I personally performed and the decisions made by Edgar henley Emmanuel.
--- NOTE | 2017-12-06 14:02 | PN ---
Subjective Date of Service: 12/06/17 Interval History: C/O pain R shoulder, headache. No more abdominal pain. Tolerated clear liquid diet well. No bowel c/o. Objective Active Medications: Acetaminophen (Tylenol Tab*) 650 mg PO Q6H PRN PRN Reason: FEVER/PAIN Last Admin: 12/06/17 06:19 Dose: 650 mg Albuterol (Ventolin 2.5 Mg/3 Ml Neb.[place]*) 2.5 mg INH Q2H PRN PRN Reason: SOB/WHEEZING Alprazolam (Xanax Tab*) 0.25 mg PO Q8H PRN PRN Reason: ANXIETY Amitriptyline HCl (Elavil Tab*) 75 mg PO BEDTIME REPLACED BY [facility] Atorvastatin Calcium (Lipitor*) 20 mg PO DAILY REPLACED BY [facility] Last Admin: 12/06/17 08:43 Dose: 20 mg Insulin Human Lispro (Humalog*) 0 units SUBCUT Q4H REPLACED BY [facility] PRN Reason: Protocol Last Admin: 12/06/17 10:39 Dose: 2 units Montelukast Sodium (Singulair Tab*) 10 mg PO DAILY REPLACED BY [facility] Last Admin: 12/06/17 08:43 Dose: 10 mg Omeprazole (Prilosec Cap*) 20 mg PO DAILY@0600 REPLACED BY [facility] Last Admin: 12/06/17 06:19 Dose: 20 mg Ondansetron HCl (Zofran Inj*) 4 mg IV Q6H PRN PRN Reason: NAUSEA Last Admin: 12/06/17 06:19 Dose: 4 mg Prochlorperazine Edisylate (Compazine Inj*) 10 mg IV Q6H PRN PRN Reason: NAUSEA Rivaroxaban (Xarelto(*)) 20 mg PO DAILY REPLACED BY [facility] Last Admin: 12/06/17 08:43 Dose: 20 mg Tramadol HCl (Ultram*) 50 mg PO Q6H PRN PRN Reason: PAIN Last Admin: 12/06/17 10:10 Dose: 50 mg Vital Signs - 8 hr 12/06/17 12/06/17 12/06/17 07:25 07:33 07:40 Temperature 98.1 F 98.1 F Pulse Rate 96 109 120 Respiratory 18 Rate Blood Pressure 142/67 142/67 (mmHg) O2 Sat by Pulse 95 95 98 Oximetry 12/06/17 12/06/17 12/06/17 08:00 10:10 11:09 Temperature 98.4 F Pulse Rate 92 Respiratory 18 16 20 Rate Blood Pressure 123/71 (mmHg) O2 Sat by Pulse 95 Oximetry 12/06/17 12:50 Temperature Pulse Rate Respiratory 18 Rate Blood Pressure (mmHg) O2 Sat by Pulse Oximetry Oxygen Devices in Use Now: None Appearance: Alert, in a chair. In good spirits. Looks comfortable. Eyes: No Scleral Icterus Neck: NL Appearance and Movements; NL JVP, No Thyroid Enlargement, Masses Respiratory: Symmetrical Chest Expansion and Respiratory Effort, Clear to Auscultation, Clear to Percussion Cardiovascular: NL Sounds; No Murmurs; No JVD, RRR, No Edema, - Abdominal: No Hepatosplenomegaly, - - Very obese, soft, nl BS, not tender. Extremities: No Edema, No Clubbing, Cyanosis, - Skin: No Rash or Ulcers, No Nodules or Sclerosis, - Neurological: Alert and Oriented x 3, NL Sensation Result Diagrams: 12/06/17 06:02 12/06/17 06:02 Additional Lab and Data: Lab Results 12/05/17 12/05/17 12/05/17 Range/Units 20:00 20:00 20:55 WBC (3.5-10.8) 10^3/ul RBC (4.0-5.4) 10^6/ul Hgb (12.0-16.0) g/dl Hct (35-47) % MCV (80-97) fL MCH (27-31) pg MCHC (31-36) g/dl RDW (10.5-15) % Plt Count (150-450) 10^3/ul MPV (7.4-10.4) um3 Neut % (Auto) (38-83) % Lymph % (Auto) (25-47) % [place] % (Auto) (0-7) % Eos % (Auto) (0-6) % Baso % (Auto) (0-2) % Absolute Neuts (auto) (1.5-7.7) 10^3/ul Absolute Lymphs (auto) (1.0-4.8) 10^3/ul Absolute Monos (auto) (0-0.8) 10^3/ul Absolute Eos (auto) (0-0.6) 10^3/ul Absolute Basos (auto) (0-0.2) 10^3/ul Absolute Nucleated RBC 10^3/ul Nucleated RBC % INR (Anticoag Therapy) 1.05 H (0.77-1.02) APTT 28.6 (26.0-36.3) seconds Sodium 138 L (139-145) mmol/L Potassium 4.1 (3.5-5.0) mmol/L Chloride 103 (101-111) mmol/L Carbon Dioxide 24 (22-32) mmol/L Anion Gap 11 (2-11) mmol/L BUN 15 (6-24) mg/dL Creatinine 0.86 (0.51-0.95) mg/dL Est GFR ( Amer) 83.0 (>60) Est GFR (Non-Af Amer) 64.5 (>60) BUN/Creatinine Ratio 17.4 (8-20) Glucose 162 H (70-100) mg/dL Hemoglobin A1c (4.0-5.6) % Lactic Acid 1.8 (0.5-2.0) mmol/L Calcium 9.5 (8.6-10.3) mg/dL Total Bilirubin 0.60 (0.2-1.0) mg/dL AST 22 (13-39) U/L ALT 21 (7-52) U/L Alkaline Phosphatase 153 H (34-104) U/L Troponin I 0.00 (<0.04) ng/mL Total Protein 7.2 (6.4-8.9) g/dL Albumin 3.8 (3.2-5.2) g/dL Globulin 3.4 (2-4) g/dL Albumin/Globulin Ratio 1.1 (1-3) Lipase < 10 L (11.0-82.0) U/L Urine Color Urine Appearance Urine pH (5-9) Ur Specific [place] (1.010-1.030) Urine Protein (Negative) Urine Ketones (Negative) Urine Blood (Negative) Urine Nitrate (Negative) Urine Bilirubin (Negative) Urine Urobilinogen (Negative) Ur Leukocyte Esterase (Negative) Urine WBC (Auto) (Absent) Urine RBC (Auto) (Absent) Ur Squamous Epith Cells (Absent) Urine Bacteria (Absent) Urine Glucose (Negative) 12/05/17 12/05/17 12/06/17 Range/Units 20:55 20:55 01:30 WBC 14.3 H (3.5-10.8) 10^3/ul RBC 5.59 H (4.0-5.4) 10^6/ul Hgb 14.9 (12.0-16.0) g/dl Hct 45 (35-47) % MCV 81 (80-97) fL MCH 27 (27-31) pg MCHC 33 (31-36) g/dl RDW 16 H (10.5-15) % Plt Count 259 (150-450) 10^3/ul MPV 9.2 (7.4-10.4) um3 Neut % (Auto) 93.3 H (38-83) % Lymph % (Auto) 3.6 L (25-47) % [place] % (Auto) 2.7 (0-7) % Eos % (Auto) 0.2 (0-6) % Baso % (Auto) 0.2 (0-2) % Absolute Neuts (auto) 13.3 H (1.5-7.7) 10^3/ul Absolute Lymphs (auto) 0.5 L (1.0-4.8) 10^3/ul Absolute Monos (auto) 0.4 (0-0.8) 10^3/ul Absolute Eos (auto) 0 (0-0.6) 10^3/ul Absolute Basos (auto) 0 (0-0.2) 10^3/ul Absolute Nucleated RBC 0 10^3/ul Nucleated RBC % 0 INR (Anticoag Therapy) (0.77-1.02) APTT (26.0-36.3) seconds Sodium (139-145) mmol/L Potassium (3.5-5.0) mmol/L Chloride (101-111) mmol/L Carbon Dioxide (22-32) mmol/L Anion Gap (2-11) mmol/L BUN (6-24) mg/dL Creatinine (0.51-0.95) mg/dL Est GFR ( Amer) (>60) Est GFR (Non-Af Amer) (>60) BUN/Creatinine Ratio (8-20) Glucose (70-100) mg/dL Hemoglobin A1c 6.3 H (4.0-5.6) % Lactic Acid (0.5-2.0) mmol/L Calcium (8.6-10.3) mg/dL Total Bilirubin (0.2-1.0) mg/dL AST (13-39) U/L ALT (7-52) U/L Alkaline Phosphatase (34-104) U/L Troponin I (<0.04) ng/mL Total Protein (6.4-8.9) g/dL Albumin (3.2-5.2) g/dL Globulin (2-4) g/dL Albumin/Globulin Ratio (1-3) Lipase (11.0-82.0) U/L Urine Color Yellow Urine Appearance Cloudy Urine pH 6.0 (5-9) Ur Specific [place] 1.021 (1.010-1.030) Urine Protein Negative (Negative) Urine Ketones 1+ A (Negative) Urine Blood 1+ A (Negative) Urine Nitrate Negative (Negative) Urine Bilirubin Negative (Negative) Urine Urobilinogen Negative (Negative) Ur Leukocyte Esterase Negative (Negative) Urine WBC (Auto) Trace(0-5/hpf) (Absent) Urine RBC (Auto) 3+(>10/hpf) A (Absent) Ur Squamous Epith Cells Present A (Absent) Urine Bacteria Absent (Absent) Urine Glucose 3+(>=500 mg/dl) A (Negative) 12/06/17 Range/Units 01:51 WBC (3.5-10.8) 10^3/ul RBC (4.0-5.4) 10^6/ul Hgb (12.0-16.0) g/dl Hct (35-47) % MCV (80-97) fL MCH (27-31) pg MCHC (31-36) g/dl RDW (10.5-15) % Plt Count (150-450) 10^3/ul MPV (7.4-10.4) um3 Neut % (Auto) (38-83) % Lymph % (Auto) (25-47) % [place] % (Auto) (0-7) % Eos % (Auto) (0-6) % Baso % (Auto) (0-2) % Absolute Neuts (auto) (1.5-7.7) 10^3/ul Absolute Lymphs (auto) (1.0-4.8) 10^3/ul Absolute Monos (auto) (0-0.8) 10^3/ul Absolute Eos (auto) (0-0.6) 10^3/ul Absolute Basos (auto) (0-0.2) 10^3/ul Absolute Nucleated RBC 10^3/ul Nucleated RBC % INR (Anticoag Therapy) (0.77-1.02) APTT (26.0-36.3) seconds Sodium (139-145) mmol/L Potassium (3.5-5.0) mmol/L Chloride (101-111) mmol/L Carbon Dioxide (22-32) mmol/L Anion Gap (2-11) mmol/L BUN (6-24) mg/dL Creatinine (0.51-0.95) mg/dL Est GFR ( Amer) (>60) Est GFR (Non-Af Amer) (>60) BUN/Creatinine Ratio (8-20) Glucose (70-100) mg/dL Hemoglobin A1c (4.0-5.6) % Lactic Acid 1.4 (0.5-2.0) mmol/L Calcium (8.6-10.3) mg/dL Total Bilirubin (0.2-1.0) mg/dL AST (13-39) U/L ALT (7-52) U/L Alkaline Phosphatase (34-104) U/L Troponin I (<0.04) ng/mL Total Protein (6.4-8.9) g/dL Albumin (3.2-5.2) g/dL Globulin (2-4) g/dL Albumin/Globulin Ratio (1-3) Lipase (11.0-82.0) U/L Urine Color Urine Appearance Urine pH (5-9) Ur Specific [place] (1.010-1.030) Urine Protein (Negative) Urine Ketones (Negative) Urine Blood (Negative) Urine Nitrate (Negative) Urine Bilirubin (Negative) Urine Urobilinogen (Negative) Ur Leukocyte Esterase (Negative) Urine WBC (Auto) (Absent) Urine RBC (Auto) (Absent) Ur Squamous Epith Cells (Absent) Urine Bacteria (Absent) Urine Glucose (Negative) Assess/Plan/Problems-Billing Assessment: - Patient Problems (1) Abdominal pain Current Visit: No Status: Acute Code(s): R10.9 - UNSPECIFIED ABDOMINAL PAIN SNOMED Code(s): 37521473 Comment: Resolved 12/06. Stop ranitidine, continue omeprazole. ? gastroparesis, gastritis, GERD. (2) Pulmonary embolism Current Visit: No Status: Acute Code(s): I26.99 - OTHER PULMONARY EMBOLISM WITHOUT ACUTE COR PULMONALE SNOMED Code(s): 83939982 Comment: Continue rivaroxaban. (3) Diabetes mellitus, type II Current Visit: No Status: Chronic Comment: Continue consistent carb diet, Lispro by SS. Note A1C 6.3% 12/05/17. (4) Morbid obesity Current Visit: Yes Status: Acute Code(s): E66.01 - MORBID (SEVERE) OBESITY DUE TO EXCESS CALORIES SNOMED Code(s): 090001568 Comment: BMI 43.1. (5) Dyslipidemia Current Visit: No Status: Chronic Code(s): E78.5 - HYPERLIPIDEMIA, UNSPECIFIED SNOMED Code(s): 083458816 Comment: Continue statin.
[2017-12-06] MEDS: Analgesic BALM* 114 GM TOPICAL PRN (19:59)
[2017-12-06] MEDS ORDERED: Amitriptyline TAB* 25 MG PO SCH (21:00)
[2017-12-07] MEDS: Omeprazole CAP* 20 MG PO SCH (05:07)
[2017-12-07] MEDS: traMADol TAB* 50 MG PO PRN (05:07)
[2017-12-07] MEDS: Analgesic BALM* 114 GM TOPICAL PRN ×2 (05:08→10:03)
[2017-12-07 07:35] VITALS: BP 136/70
[2017-12-07] MEDS: Atorvastatin* 20 MG TAB PO SCH (08:36)
[2017-12-07] MEDS: Rivaroxaban TAB(*) 20 MG TAB PO SCH (08:36)
[2017-12-07] MEDS: Acetaminophen TAB* 325 MG PO PRN (08:36)
[2017-12-07] MEDS: Insulin LISPRO* 1 UNITS UNIT SUBCUT SCH (08:39)
[2017-12-07] MEDS: Montelukast Sodium TAB* 10 MG PO SCH (10:04)
--- NOTE | 2017-12-08 03:27 | DS ---
CC: Dr. Richard Hensley * DISCHARGE SUMMARY: DATE OF ADMISSION: 12/06/17 DATE OF DISCHARGE: 12/07/17 HOSPITAL COURSE: This is a 72-year-old woman presented with abrupt onset of sharp hypogastric pain. She had nausea without vomiting, but no evidence of bleeding. She also complained of shortness of breath, numbness and tingling, and generalized weakness. The rest of the history is detailed in the admission note. The patient's pain went away within 24 hours completely. She was mainly complaining of some right shoulder pain at the time of discharge. Included in the differential for abdominal pain will be gastroparesis, esophageal spasm, musculoskeletal pain, gastritis. She was started initially on clear diet and then advanced to a regular diet. She was given intravenous fluid. She was evaluated with a CT scan of the abdomen and pelvis. FINAL DIAGNOSES: 1. Transient abdominal pain of uncertain etiology. 2. Right shoulder pain. I note her range of motion was good in her right shoulder without pain. This was also transient. 3. Diabetes, on diet only. 4. Remote history of pulmonary embolism. 5. Morbid obesity. 6. Dyslipidemia. DISCHARGE MEDICATIONS: 1. Tramadol 50 mg every 8 hours p.r.n. 2. Rivaroxaban 20 mg daily. 3. Ranitidine 150 mg daily. 4. Amitriptyline 75 mg h.s. 5. Simvastatin 40 mg daily. 6. Montelukast 10 mg daily. 7. Hydrocortisone 1% cream as directed. 8. Nystatin cream b.i.d. as directed. 9. Levocetirizine 5 mg daily. [id number]/[facility] #: [id number] [facility]
== END 2017-12-07 11:05 | disposition home or self-care (01) ==
LOC: ED 19:30 → MED 12-06 04:47
PROVIDERS: ADMIT Hospitalist; ATTEND Internal Medicine
DX: R10.9 Unspecified abdominal pain (principal); M25.511 Pain in right shoulder; R11.2 Nausea with vomiting, unspecified; R07.9 Chest pain, unspecified; R06.02 Shortness of breath; R53.1 Weakness; E11.9 Type 2 diabetes mellitus without complications; E66.01 Morbid (severe) obesity due to excess calories; E78.5 Hyperlipidemia, unspecified; I10 Essential (primary) hypertension; Z86.711 Personal history of pulmonary embolism; Z86.718 Personal history of other venous thrombosis and embolism; Z79.899 Other long term (current) drug therapy; Z88.8 Allergy status to other drugs, medicaments and biological substances; Z88.1 Allergy status to other antibiotic agents; Z79.01 Long term (current) use of anticoagulants; Z87.891 Personal history of nicotine dependence; K57.90 Diverticulosis of intestine, part unspecified, without perforation or abscess without bleeding; I45.10 Unspecified right bundle-branch block
CPT/HCPCS: 36415; 71045; 74018; 74176; 80048; 80053; 81003; 81015; 83036; 83605; 83690; 84484; 85025; 85027; 85610; 85730; 87086; 93005; 96361; 96374; 96375; 96376; 99285; A9270-GY; G0378; J0780; J1200; J2405

== ENCOUNTER 2017-12-10 18:35 | Emergency (ER) | payer MEDICARE, MEDICAID ==
[2017-12-10] MEDS ORDERED: NS 0.9% 1000 ML* 1,000 ML IV ONE (19:03)
[2017-12-10] MEDS ORDERED: Ondansetron INJ* 2 MG/ML VIAL IV ONE (19:03)
[2017-12-10 19:57] LABS: ABS Basophils 0 10^3/ul (0-0.2); ABS Eosinophils 0.1 10^3/ul (0-0.6); ABS Monocytes 0.8 10^3/ul (0-0.8); ABS Neutrophils 6.2 10^3/ul (1.5-7.7); ABS Nucleated RBC 0 10^3/ul; EGFR Non-African American 77.9 (>60); Eosinophil % 1.1 % (0-6); Hematocrit 39 % (35-47); Hemoglobin 12.9 g/dl (12.0-16.0); Lymphocyte % 22.2 % (25-47); Mean Corpuscular HGB Conc 33 g/dl (31-36); Mean Corpuscular Hemoglobin 27 pg (27-31); Mean Corpuscular Volume 80 fL (80-97); Mean Platelet Volume 8.6 um3 (7.4-10.4); Nucleated Red Blood Cells % 0; Platelet Count 240 10^3/ul (150-450); Red Blood Count 4.85 10^6/ul (4.0-5.4); Red Cell Distribution Width 16 % (10.5-15); White Blood Count 9.1 10^3/ul (3.5-10.8)
[2017-12-10 19:59] LABS: INR 1.44 (0.77-1.02)
[2017-12-10] MEDS ORDERED: Iohexol 300* (CONTRAST) 10 ML SDV IV ONE (20:38)
[2017-12-10 21:04] LABS: Urine Appearance Clear; Urine Blood Negative (Negative); Urine Color Yellow; Urine Ketones Negative (Negative); Urine Protein Negative (Negative); Urine Specific Gravity 1.005 (1.010-1.030); Urine Urobilinogen Negative (Negative)
--- NOTE | 2017-12-10 21:25 | RAD ---
CLINICAL HISTORY: Abdominal pain COMPARISON: December 01, 2017 TECHNIQUE: Multiple contiguous axial CT scans were obtained of the abdomen and pelvis after the administration of intravenous contrast. Coronal and sagittal multiplanar reformations are submitted for review. Oral contrast was administered. Delayed images were obtained through the abdomen and pelvis. FINDINGS: LUNG BASES: There is a stable small pericardial effusion. LIVER: The liver is normal in shape, size, contour, and attenuation. BILE DUCTS: There is no intrahepatic or extrahepatic biliary dilatation. GALLBLADDER: The gallbladder is not visualized. Surgical clips are noted in the gallbladder fossa. PANCREAS: There is fatty atrophy of the pancreas. SPLEEN: Normal in size and appearance. UPPER GI TRACT: Evaluation of the gastrointestinal tract is limited by incomplete gastric distention. The upper GI tract is unremarkable. SMALL BOWEL AND MESENTERY: The small bowel is normal in contour, course, and caliber. There is no obstruction or dilatation. COLON: There are multiple diverticula of the transverse, descending, and sigmoid colon. There is no pericolonic inflammatory change. ADRENALS: Normal bilaterally. KIDNEYS: There is a small simple cyst of the midpole the right kidney. There is no appreciable hydronephrosis or nephrolithiasis. BLADDER: The bladder is smooth in contour. PELVIC ORGANS: The pelvic organs are not visualized. AORTA: There is mild calcific atherosclerotic disease of the abdominal aorta and its branches, without aneurysmal dilatation IVC: Unremarkable LYMPH NODES: There is no lymphadenopathy by size criteria. ABDOMINAL WALL: There is no evidence for abdominal wall hernia. BONES AND SOFT TISSUES: Unremarkable OTHER: None IMPRESSION: 1. DIVERTICULOSIS. 2. STABLE SMALL PERICARDIAL EFFUSION.
[2017-12-10] MEDS ORDERED: Nitrofurantoin Macrocrystals* 100 MG CAP PO ONE ×2 (21:37→21:38)
[2017-12-10] MEDS ORDERED: O ndansetron ODT 4MG 2TAB PRPK 4 MG PAK PO ONE (21:38)
[2017-12-10] MEDS ORDERED: Phenazopyridine TAB* 100 MG PO ONE (21:42)
--- NOTE | 2017-12-10 21:45 | ED ---
Jayden Mason Stephanie, scribed for Ap Dennis MD on 12/10/17 at 1904 . Abdominal Pain/Female - HPI Summary HPI Summary: The pt is a 72 y/o F BIBA to the ED with c/o abd pain that began at 15:00. The pt denies dysuria, calf pain and vomiting. The pain is rated as a 5 in severity currently. - History of Current Complaint Stated Complaint: GENERAL ILLNESS Time Seen by Provider: 12/10/17 18:44 Hx Obtained From: Patient ?: No Onset/Duration: Gradual Onset, Lasting Hours - 4, Still Present Timing: Constant Severity Currently: Moderate Pain Intensity: 5 Pain Scale Used: 0-10 Numeric Location: Diffuse Radiates: No Aggravating Factor(s): Nothing Alleviating Factor(s): Nothing Associated Signs and Symptoms: Positive: Other: - negative: dysuria, calf pain. Negative: Vomiting Allergies/Adverse Reactions: Allergies Allergy/AdvReac Type Severity Reaction Status Date / Time metoclopramide [From Reglan] Allergy Intermediate Shortness Verified 12/10/17 18 :42 of Breath celecoxib [From Celebrex] Allergy Mild Rash Verified 12/10/17 18:42 cephalexin [From Keflex] Allergy Mild Rash Verified 12/10/17 18:42 ciprofloxacin [From Cipro] Allergy Mild Rash Verified 12/10/17 18:42 aspirin Allergy Unknown Verified 12/10/17 18:42 Reaction Details ceftriaxone [From Rocephin] AdvReac Hallucinati Verified 12/10/17 18:42 ons PMH/Surg Hx/FS Hx/Imm Hx Endocrine/Hematology History: Reports: Hx Anticoagulant Therapy Denies: Hx Diabetes, Hx Systemic Lupus Erythematosus, Hx Thyroid Disease, Hx Anemia Cardiovascular History: Reports: Hx Deep Vein Thrombosis, Hx Hypercholesterolemia Denies: Hx Aneurysm, Hx Angina, Hx Auto Implanted Cardiovert Defib, Hx Congestive Heart Failure, Hx Hypertension, Hx Pacemaker/ICD, Other Cardiovascular Problems/Disorders Respiratory History: Reports: Hx Asthma - environmental allergies, Hx Pulmonary Embolism, Hx Seasonal Allergies Denies: Hx Chronic Obstructive Pulmonary Disease (COPD), Hx Sleep Apnea GI History: Reports: Hx Gall Bladder Disease, Hx Gastroesophageal Reflux Disease Denies: Hx Cirrhosis, Hx Crohn's Disease, Hx Diverticulosis, Hx Irritable Bowel, Hx Ulcer History: Reports: Hx Renal Disease, Other Problems/Disorders - renal disease Denies: Hx Kidney Infection, Hx Kidney Stones Musculoskeletal History: Reports: Hx Arthritis, Hx Osteoporosis - 11/01/12 Denies: Hx Gout Sensory History: Reports: Hx Contacts or Glasses Denies: Hx Deafness, Hx Hearing Aid Opthamlomology History: Reports: Hx Contacts or Glasses Neurological History: Reports: Hx Headaches, Hx Migraine, Other Neuro Impairments/Disorders - migraines Denies: Hx Dementia, Hx Seizures Psychiatric History: Denies: Hx Anxiety, Hx Eating Disorder, Hx Depression, Hx Panic Disorder, Hx Schizophrenia, Hx Suicide Attempt, Hx Substance Abuse - Surgical History Surgery Procedure, Year, and Place: hysterectomy, rt breast biopsy, cholecystectomy, appendectomy Hx Anesthesia Reactions: No - Immunization History Date of Tetanus Vaccine: Unk Date of Influenza Vaccine: 05/26 Infectious Disease History: Denies: Hx Hepatitis, Hx Human Immunodeficiency Virus (HIV), Hx Tuberculosis - Family History Known Family History: Positive: Cardiac Disease, Hypertension Family History: Denies FHx breast cancer - Social History Occupation: Retired Lives: Assisted Living Alcohol Use: None Hx Substance Use: No Substance Use Type: Reports: None Hx Tobacco Use: Yes Smoking Status (MU): Former Smoker Review of Systems Negative: Fever Positive: Abdominal Pain. Negative: Vomiting Negative: dysuria Positive: Other - Negative: calf pain All Other Systems Reviewed And Are Negative: Yes Physical Exam - Summary Physical Exam Summary: General: well-appearing, no acute pain distress Skin: warm, color reflects adequate perfusion, dry Head: normal Eyes: EOMI, [place] ENT: normal Neck: supple, nontender Respiratory: CTA, breath sounds present Cardiovascular: RRR Abdomen: soft, pt reports mild tenderness mid-abdomen to palpation Bowel: present Musculoskeletal: normal, strength/ROM intact Neurological: normal, sensory/motor intact, A&O x3 Psychological: affect/mood appropriate Triage Information Reviewed: Yes Vital Signs On Initial Exam: Initial Vitals Temp Pulse Resp BP Pulse Ox 99 F 86 22 156/86 97 12/10/17 19:07 12/10/17 19:07 12/10/17 19:07 12/10/17 19:07 12/10/17 19:07 Vital Signs Reviewed: Yes Diagnostics - Vital Signs Vital Signs Temp Pulse Resp BP Pulse Ox 12/10/17 19:07 99 F 86 22 156/86 97 - Laboratory Lab Results: Lab Results 0412/10/17 12/10/17 Range/Units 19:29 19:29 19:29 WBC 9.1 (3.5-10.8) 10^3/ul RBC 4.85 (4.0-5.4) 10^6/ul Hgb 12.9 (12.0-16.0) g/dl Hct 39 (35-47) % MCV 80 (80-97) fL MCH 27 (27-31) pg MCHC 33 (31-36) g/dl RDW 16 H (10.5-15) % Plt Count 240 (150-450) 10^3/ul MPV 8.6 (7.4-10.4) um3 Neut % (Auto) 68.1 (38-83) % Lymph % (Auto) 22.2 L (25-47) % [place] % (Auto) 8.4 H (0-7) % Eos % (Auto) 1.1 (0-6) % Baso % (Auto) 0.2 (0-2) % Absolute Neuts (auto) 6.2 (1.5-7.7) 10^3/ul Absolute Lymphs (auto) 2.0 (1.0-4.8) 10^3/ul Absolute Monos (auto) 0.8 (0-0.8) 10^3/ul Absolute Eos (auto) 0.1 (0-0.6) 10^3/ul Absolute Basos (auto) 0 (0-0.2) 10^3/ul Absolute Nucleated RBC 0 10^3/ul Nucleated RBC % 0 INR (Anticoag Therapy) 1.44 H (0.77-1.02) APTT 35.3 (26.0-36.3) seconds Sodium 137 L (139-145) mmol/L Potassium 4.0 (3.5-5.0) mmol/L Chloride 104 (101-111) mmol/L Carbon Dioxide 26 (22-32) mmol/L Anion Gap 7 (2-11) mmol/L BUN 13 (6-24) mg/dL Creatinine 0.73 (0.51-0.95) mg/dL Est GFR ( Amer) 100.2 (>60) Est GFR (Non-Af Amer) 77.9 (>60) BUN/Creatinine Ratio 17.8 (8-20) Glucose 112 H (70-100) mg/dL Lactic Acid (0.5-2.0) mmol/L Calcium 9.3 (8.6-10.3) mg/dL Total Bilirubin 0.30 (0.2-1.0) mg/dL AST 21 (13-39) U/L ALT 21 (7-52) U/L Alkaline Phosphatase 117 H (34-104) U/L Troponin I 0.01 (<0.04) ng/mL C-Reactive Protein 7.43 H (< 5.00) mg/L Total Protein 6.3 L (6.4-8.9) g/dL Albumin 3.4 (3.2-5.2) g/dL Globulin 2.9 (2-4) g/dL Albumin/Globulin Ratio 1.2 (1-3) Lipase 13 (11.0-82.0) U/L Urine Color Urine Appearance Urine pH (5-9) Ur Specific Schlater (1.010-1.030) Urine Protein (Negative) Urine Ketones (Negative) Urine Blood (Negative) Urine Nitrate (Negative) Urine Bilirubin (Negative) Urine Urobilinogen (Negative) Ur Leukocyte Esterase (Negative) Urine WBC (Auto) (Absent) Urine RBC (Auto) (Absent) Ur Squamous Epith Cells (Absent) Urine Bacteria (Absent) Urine Glucose (Negative) 12/10/17 12/10/17 Range/Units 19:29 20:43 WBC (3.5-10.8) 10^3/ul RBC (4.0-5.4) 10^6/ul Hgb (12.0-16.0) g/dl Hct (35-47) % MCV (80-97) fL MCH (27-31) pg MCHC (31-36) g/dl RDW (10.5-15) % Plt Count (150-450) 10^3/ul MPV (7.4-10.4) um3 Neut % (Auto) (38-83) % Lymph % (Auto) (25-47) % [place] % (Auto) (0-7) % Eos % (Auto) (0-6) % Baso % (Auto) (0-2) % Absolute Neuts (auto) (1.5-7.7) 10^3/ul Absolute Lymphs (auto) (1.0-4.8) 10^3/ul Absolute Monos (auto) (0-0.8) 10^3/ul Absolute Eos (auto) (0-0.6) 10^3/ul Absolute Basos (auto) (0-0.2) 10^3/ul Absolute Nucleated RBC 10^3/ul Nucleated RBC % INR (Anticoag Therapy) (0.77-1.02) APTT (26.0-36.3) seconds Sodium (139-145) mmol/L Potassium (3.5-5.0) mmol/L Chloride (101-111) mmol/L Carbon Dioxide (22-32) mmol/L Anion Gap (2-11) mmol/L BUN (6-24) mg/dL Creatinine (0.51-0.95) mg/dL Est GFR ( Amer) (>60) Est GFR (Non-Af Amer) (>60) BUN/Creatinine Ratio (8-20) Glucose (70-100) mg/dL Lactic Acid 1.0 (0.5-2.0) mmol/L Calcium (8.6-10.3) mg/dL Total Bilirubin (0.2-1.0) mg/dL AST (13-39) U/L ALT (7-52) U/L Alkaline Phosphatase (34-104) U/L Troponin I (<0.04) ng/mL C-Reactive Protein (< 5.00) mg/L Total Protein (6.4-8.9) g/dL Albumin (3.2-5.2) g/dL Globulin (2-4) g/dL Albumin/Globulin Ratio (1-3) Lipase (11.0-82.0) U/L Urine Color Yellow Urine Appearance Clear Urine pH 7.0 (5-9) Ur Specific [place] 1.005 L (1.010-1.030) Urine Protein Negative (Negative) Urine Ketones Negative (Negative) Urine Blood Negative (Negative) Urine Nitrate Negative (Negative) Urine Bilirubin Negative (Negative) Urine Urobilinogen Negative (Negative) Ur Leukocyte Esterase Trace A (Negative) Urine WBC (Auto) 2+(11-20/hpf) A (Absent) Urine RBC (Auto) Trace(0-2/hpf) (Absent) Ur Squamous Epith Cells Present A (Absent) Urine Bacteria 1+ A (Absent) Urine Glucose Negative (Negative) Result Diagrams: 12/10/17 19:29 12/10/17 19:29 Lab Statement: Any lab studies that have been ordered have been reviewed, and results considered in the medical decision making process. - CT Adomen/Pelvis CT Interpretation: Positive (See Comments) CT Interpretation Completed By: Radiologist - 1. DIVERTICULOSIS. 2. STABLE SMALL PERICARDIAL EFFUSION. ED physician has reviewed this report. - EKG 19:11 Cardiac Rate: NL EKG Rhythm: Sinus Rhythm - 83 BPM Ectopy: None EKG Interpretation: RBBB EKG Comparison: No Significant Change - since 12/06/17 Re-Evaluation - Re-Evaluation First Eval Re-Evaluation Time: 21:33 Change: Improved - The pt states her abd pain in slightly improved. ED physician discussses discharge plan for the pt and UTI care and management. The pt agrees with the plan of discharge. Abdominal Pain Fem Course/Dx - Course Course Of Treatment: BP noted and advised to follow up with PCP. PAIN IMPROVED IN ED. WILL TREAT UTI WITH MACROBID. DISCUSSED RESULTS WITH THE PATIENT. SHE FEELS SHE CAN BE TREATED SAFELY AT HOME. F/U PMD; RETURN IF WORSE. - Diagnoses Provider Diagnoses: Elevated BP without diagnosis of hypertension, UTI (urinary tract infection), Abdominal pain Discharge - Sign-Out/Discharge Documenting (check all that apply): Discharge - Discharge Plan Condition: Stable Disposition: HOME Prescriptions: Nitrofurantoin Macrocrystals* [Macrodantin*] 100 mg PO BID #18 cap Ondansetron ODT TAB* [Zofran 4 MG Odt TAB*] 4 mg PO Q6H PRN #10 tab.odt PRN Reason: Nausea Phenazopyridine 200 mg (NF) [Pyridium 200 MG tab *] 200 mg PO TID PRN #10 tab PRN Reason: Pain Patient Education Materials: Urinary Tract Infection in Women (ED), Acute Abdominal Pain (ED) Referrals: Richard Hensley DO [Primary Care Provider] - Additional Instructions: FOLLOW UP WITH YOUR DOCTOR. RETURN TO THE EMERGENCY DEPARTMENT FOR ANY WORSENING OF YOUR CONDITION; PAIN, FEVER, YOU FEEL ILL OR QUESTIONS OR CONCERNS. YOUR BLOOD PRESSURE WAS ELEVATED TODAY; FOLLOW UP WITH YOUR PRIMARY CARE DOCTOR WITHIN ONE WEEK. - Billing Disposition and Condition Condition: STABLE Disposition: HOME The documentation as recorded by the Jayden beavers Stephanie accurately reflects the service I personally performed and the decisions made by me, Ap Dennis MD.
[2017-12-10 22:08] VITALS: BP 144/87
== END 2017-12-10 22:05 | disposition home or self-care (01) ==
LOC: ED 18:35
DX: N39.0 Urinary tract infection, site not specified (principal); R10.9 Unspecified abdominal pain; R03.0 Elevated blood-pressure reading, without diagnosis of hypertension; K57.90 Diverticulosis of intestine, part unspecified, without perforation or abscess without bleeding
CPT/HCPCS: 36415; 74177; 80053; 81003; 81015; 83605; 83690; 84484; 85025; 85610; 85730; 86140; 87086; 93005; 96374; 99285; A9270-GY; J2405; Q9967

== ENCOUNTER 2018-01-31 17:47 | Emergency (ER) | payer MEDICARE, MEDICAID ==
[2018-01-31 18:50] LABS: ABS Basophils 0 10^3/ul (0-0.2); ABS Eosinophils 0 10^3/ul (0-0.6); ABS Lymphocytes 1.4 10^3/ul (1.0-4.8); ABS Monocytes 0.7 10^3/ul (0-0.8); ABS Neutrophils 10.3 10^3/ul (1.5-7.7); ABS Nucleated RBC 0 10^3/ul; Eosinophil % 0.4 % (0-6); Hematocrit 40 % (35-47); Hemoglobin 12.9 g/dl (12.0-16.0); Lymphocyte % 11.2 % (25-47); Mean Corpuscular HGB Conc 32 g/dl (31-36); Mean Corpuscular Hemoglobin 26 pg (27-31); Mean Corpuscular Volume 81 fL (80-97); Mean Platelet Volume 8.8 um3 (7.4-10.4); Nucleated Red Blood Cells % 0; Platelet Count 201 10^3/ul (150-450); Red Blood Count 4.94 10^6/ul (4.0-5.4); Red Cell Distribution Width 15 % (10.5-15); White Blood Count 12.4 10^3/ul (3.5-10.8)
[2018-01-31 18:55] LABS: INR 1.09 (0.77-1.02)
[2018-01-31 19:00] LABS: EGFR Non-African American 62.8 (>60)
--- NOTE | 2018-01-31 19:11 | RAD ---
Indication: Chest pain. Jaw pain. Comparison: December 10, 2017 CT abdomen. January 05, 2018 chest radiograph. Technique: Upright AP 1840 hours Report: Large body habitus limits image quality. Mild prominence of the interstitial markings. Grossly clear pleural spaces. Negative for pneumothorax. Mild cardiomegaly. Unremarkable central pulmonary vasculature. IMPRESSION: Limited exam due to morbid obesity. No compelling evidence for acute cardiopulmonary disease.
[2018-01-31] MEDS ORDERED: HYDROcodone/ACETAMIN 5-325 MG* 1 TAB PO ONE (20:36)
--- NOTE | 2018-01-31 20:45 | RAD ---
Indication: RIGHT side face numbness. Comparison: December 17, 2017 Technique: Noncontrast CT vertex of skull through foramen magnum. Report: Moderate prominence of the cerebral sulci and mild prominence of the cerebellar fissures reflecting atrophy. Unremarkable ventricles and basal cisterns. Negative for martínez matter white matter obscuration, intra or extra-axial hemorrhage, or mass effect. Unremarkable partially visualized orbital contents. Atherosclerotic calcification of the intracranial internal carotid arteries and distal vertebral arteries. Indolent thickening of the inner table of the frontal and temporal bones. No suspicious calvarial or skull base lesion evident. Clear partially visualized paranasal sinuses and mastoid air spaces. Unremarkable scalp. IMPRESSION: 1. No acute intracranial process evident. 2. Involutional change. Stable exam compared with the December 17, 2017 CT. .
[2018-01-31] MEDS ORDERED: Famotidine TAB* 20 MG PO ONE (20:55)
[2018-01-31 21:23] VITALS: BP 89/59
--- NOTE | 2018-02-01 11:51 | ED ---
Gerardo Mason Julia, scribed for Wes Luna MD on 01/31/18 at 1757 . HPI Chest Pain - HPI Summary HPI Summary: This is a 72 year old F presenting to [facility] with a chief complaint of right sided facial numbness with epigastric and chest pain beginning an hour ago. Facial numbness is currently resolved. Patient reports nausea and vomiting. Patient denies diarrhea and extremity weakness. EMS tx 325 ASA. - History of Current Complaint Chief Complaint: EDChestWallPain Time Seen by Provider: 01/31/18 17:53 Hx Obtained From: Patient Onset/Duration: Started Hours Ago Timing: Constant Pain Intensity: 0 Chest Pain Location: Discrete at: - epigastric Chest Pain Radiates: Yes Chest Pain Radiates To:: Jaw Alleviating Factor(s): EMS Tx Associated Signs and Symptoms: Positive: Chest Pain, Numbness, Nausea, Vomiting. Negative: Weakness - Additional Pertinent History Primary Care Physician: JESUS - Allergy/Home Medications Allergies/Adverse Reactions: Allergies Allergy/AdvReac Type Severity Reaction Status Date / Time metoclopramide [From Reglan] Allergy Intermediate Shortness Verified 01/31/18 17 :56 of Breath celecoxib [From Celebrex] Allergy Mild Rash Verified 01/31/18 17:56 cephalexin [From Keflex] Allergy Mild Rash Verified 01/31/18 17:56 ciprofloxacin [From Cipro] Allergy Mild Rash Verified 01/31/18 17:56 aspirin Allergy Unknown Verified 01/31/18 17:56 Reaction Details ondansetron Allergy Unknown Verified 01/31/18 17:56 [From Zofran (as Reaction hydrochloride)] Details ceftriaxone [From Rocephin] AdvReac Hallucinati Verified 01/31/18 17:56 ons Home Medications: Home Medications Amitriptyline TAB* [Elavil TAB*] 75 mg PO BEDTIME 01/31/18 [History Confirmed ] Docusate CAP* [Colace Cap*] 100 mg PO BID PRN 01/31/18 [History Confirmed ] Simvastatin (NF) [Zocor (NF)] 40 mg PO DAILY 01/31/18 [History Confirmed ] PMH/Surg Hx/FS Hx/Imm Hx Endocrine/Hematology History: Reports: Hx Anticoagulant Therapy Denies: Hx Diabetes, Hx Systemic Lupus Erythematosus, Hx Thyroid Disease, Hx Anemia Cardiovascular History: Reports: Hx Deep Vein Thrombosis, Hx Hypercholesterolemia Denies: Hx Aneurysm, Hx Angina, Hx Auto Implanted Cardiovert Defib, Hx Congestive Heart Failure, Hx Hypertension, Hx Pacemaker/ICD, Other Cardiovascular Problems/Disorders Respiratory History: Reports: Hx Asthma - environmental allergies, Hx Pulmonary Embolism, Hx Seasonal Allergies Denies: Hx Chronic Obstructive Pulmonary Disease (COPD), Hx Sleep Apnea GI History: Reports: Hx Gall Bladder Disease, Hx Gastroesophageal Reflux Disease Denies: Hx Cirrhosis, Hx Crohn's Disease, Hx Diverticulosis, Hx Irritable Bowel, Hx Ulcer History: Reports: Hx Renal Disease, Other Problems/Disorders - renal disease Denies: Hx Kidney Infection, Hx Kidney Stones Musculoskeletal History: Reports: Hx Arthritis, Hx Osteoporosis - 11/01/12 Denies: Hx Gout Sensory History: Reports: Hx Contacts or Glasses Denies: Hx Deafness, Hx Hearing Aid Opthamlomology History: Reports: Hx Contacts or Glasses Neurological History: Reports: Hx Headaches, Hx Migraine, Other Neuro Impairments/Disorders - migraines Denies: Hx Dementia, Hx Seizures Psychiatric History: Denies: Hx Anxiety, Hx Eating Disorder, Hx Depression, Hx Panic Disorder, Hx Schizophrenia, Hx Suicide Attempt, Hx Substance Abuse - Surgical History Surgery Procedure, Year, and Place: hysterectomy, rt breast biopsy, cholecystectomy, appendectomy Hx Anesthesia Reactions: No - Immunization History Date of Tetanus Vaccine: Unk Date of Influenza Vaccine: Fall 2016 Infectious Disease History: No Infectious Disease History: Denies: Hx Hepatitis, Hx Human Immunodeficiency Virus (HIV), Hx Tuberculosis , Traveled Outside the [place] in Last 30 Days - Family History Known Family History: Positive: Cardiac Disease, Hypertension Family History: Denies FHx breast cancer - Social History Alcohol Use: None Hx Substance Use: No Substance Use Type: Reports: None Hx Tobacco Use: Yes Smoking Status (MU): Former Smoker Review of Systems Positive: Chest Pain Positive: Vomiting, Nausea. Negative: Diarrhea Positive: Numbness - right jaw. Negative: Weakness All Other Systems Reviewed And Are Negative: Yes Physical Exam - Summary Physical Exam Summary: VITAL SIGNS: Reviewed. GENERAL: Patient is a well-developed and nourished female who is lying comfortable in the stretcher. Patient is not in any acute respiratory distress. HEAD AND FACE: No signs of trauma. No ecchymosis, hematomas or skull depressions. No sinus tenderness. EYES: PERRLA, EOMI x 2, No injected conjunctiva, no nystagmus. EARS: Hearing grossly intact. Ear canals and tympanic membranes are within normal limits. MOUTH: Oropharynx within normal limits. NECK: Supple, trachea is midline, no adenopathy, no JVD, no carotid bruit, no c- spine tenderness, neck with full ROM. CHEST: Symmetric, reproducible epigastric pain, radiating into chest LUNGS: Clear to auscultation bilaterally. No wheezing or crackles. CVS: Regular rate and rhythm, S1 and S2 present, no murmurs or gallops appreciated. ABDOMEN: Soft. Epigastric tenderness. No signs of distention. No rebound no guarding, and no masses palpated. Bowel sounds are normal. EXTREMITIES: FROM in all major joints, no edema, no cyanosis or clubbing. NEURO: Alert and oriented x 3. No acute neurological deficits. Speech is normal and follows commands. NIH score 0. SKIN: Dry and warm Triage Information Reviewed: Yes Vital Signs On Initial Exam: Initial Vitals Temp Pulse Resp BP Pulse Ox 97.9 F 104 16 129/80 97 01/31/18 17:52 01/31/18 17:52 01/31/18 17:52 01/31/18 17:52 01/31/18 17:52 Vital Signs Reviewed: Yes Diagnostics - Vital Signs Vital Signs Temp Pulse Resp BP Pulse Ox 01/31/18 17:52 97.9 F 104 16 129/80 97 - Laboratory Lab Results: Lab Results 01/31/18 01/31/18 01/31/18 Range/Units 18:28 18:28 18:28 WBC 12.4 H (3.5-10.8) 10^3/ul RBC 4.94 (4.0-5.4) 10^6/ul Hgb 12.9 (12.0-16.0) g/dl Hct 40 (35-47) % MCV 81 (80-97) fL MCH 26 L (27-31) pg MCHC 32 (31-36) g/dl RDW 15 (10.5-15) % Plt Count 201 (150-450) 10^3/ul MPV 8.8 (7.4-10.4) um3 Neut % (Auto) 82.5 (38-83) % Lymph % (Auto) 11.2 L (25-47) % [place] % (Auto) 5.6 (0-7) % Eos % (Auto) 0.4 (0-6) % Baso % (Auto) 0.3 (0-2) % Absolute Neuts (auto) 10.3 H (1.5-7.7) 10^3/ul Absolute Lymphs (auto) 1.4 (1.0-4.8) 10^3/ul Absolute Monos (auto) 0.7 (0-0.8) 10^3/ul Absolute Eos (auto) 0 (0-0.6) 10^3/ul Absolute Basos (auto) 0 (0-0.2) 10^3/ul Absolute Nucleated RBC 0 10^3/ul Nucleated RBC % 0 INR (Anticoag Therapy) 1.09 H (0.77-1.02) Sodium 136 L (139-145) mmol/L Potassium 4.1 (3.5-5.0) mmol/L Chloride 103 (101-111) mmol/L Carbon Dioxide 27 (22-32) mmol/L Anion Gap 6 (2-11) mmol/L BUN 19 (6-24) mg/dL Creatinine 0.88 (0.51-0.95) mg/dL Est GFR ( Amer) 80.8 (>60) Est GFR (Non-Af Amer) 62.8 (>60) BUN/Creatinine Ratio 21.6 H (8-20) Glucose 145 H (70-100) mg/dL Lactic Acid (0.5-2.0) mmol/L Calcium 9.1 (8.6-10.3) mg/dL Magnesium 1.9 (1.9-2.7) mg/dL Total Bilirubin 0.30 (0.2-1.0) mg/dL AST 19 (13-39) U/L ALT 19 (7-52) U/L Alkaline Phosphatase 136 H (34-104) U/L Total Creatine Kinase 24 (10-223) U/L CK-MB (CK-2) 1.3 (0.6-6.3) ng/mL Troponin I 0.00 (<0.04) ng/mL B-Natriuretic Peptide ( - 100) pg/mL Total Protein 6.4 (6.4-8.9) g/dL Albumin 3.4 (3.2-5.2) g/dL Globulin 3.0 (2-4) g/dL Albumin/Globulin Ratio 1.1 (1-3) TSH 0.90 (0.34-5.60) mcIU/mL 01/31/18 01/31/18 Range/Units 18:28 18:28 WBC (3.5-10.8) 10^3/ul RBC (4.0-5.4) 10^6/ul Hgb (12.0-16.0) g/dl Hct (35-47) % MCV (80-97) fL MCH (27-31) pg MCHC (31-36) g/dl RDW (10.5-15) % Plt Count (150-450) 10^3/ul MPV (7.4-10.4) um3 Neut % (Auto) (38-83) % Lymph % (Auto) (25-47) % [place] % (Auto) (0-7) % Eos % (Auto) (0-6) % Baso % (Auto) (0-2) % Absolute Neuts (auto) (1.5-7.7) 10^3/ul Absolute Lymphs (auto) (1.0-4.8) 10^3/ul Absolute Monos (auto) (0-0.8) 10^3/ul Absolute Eos (auto) (0-0.6) 10^3/ul Absolute Basos (auto) (0-0.2) 10^3/ul Absolute Nucleated RBC 10^3/ul Nucleated RBC % INR (Anticoag Therapy) (0.77-1.02) Sodium (139-145) mmol/L Potassium (3.5-5.0) mmol/L Chloride (101-111) mmol/L Carbon Dioxide (22-32) mmol/L Anion Gap (2-11) mmol/L BUN (6-24) mg/dL Creatinine (0.51-0.95) mg/dL Est GFR ( Amer) (>60) Est GFR (Non-Af Amer) (>60) BUN/Creatinine Ratio (8-20) Glucose (70-100) mg/dL Lactic Acid 1.1 (0.5-2.0) mmol/L Calcium (8.6-10.3) mg/dL Magnesium (1.9-2.7) mg/dL Total Bilirubin (0.2-1.0) mg/dL AST (13-39) U/L ALT (7-52) U/L Alkaline Phosphatase (34-104) U/L Total Creatine Kinase (10-223) U/L CK-MB (CK-2) (0.6-6.3) ng/mL Troponin I (<0.04) ng/mL B-Natriuretic Peptide 18 ( - 100) pg/mL Total Protein (6.4-8.9) g/dL Albumin (3.2-5.2) g/dL Globulin (2-4) g/dL Albumin/Globulin Ratio (1-3) TSH (0.34-5.60) mcIU/mL Result Diagrams: 01/31/18 18:28 01/31/18 18:28 Lab Statement: Any lab studies that have been ordered have been reviewed, and results considered in the medical decision making process. - Radiology CXR Radiology Interpretation Completed By: Radiologist - Limited exam due to morbid obesity. No compelling evidence for acute cardiopulmonary disease. Dr. Luna has reviewed this report. - CT Brain CT CT Interpretation Completed By: Radiologist - 1. No acute intracranial process evident. 2. Involutional change. Stable exam compared with the December 17, [address] Luna has reviewed this report. - EKG 1824 Cardiac Rate: Tachycardia EKG Rhythm: Sinus Tachycardia - 101 BPM EKG Interpretation: RBBB EKG Comparison: No Significant Change - from 12/17/14 Re-Evaluation - Re-Evaluation 1 Re-Evaluation Time: 21:00 Comment: Pt is informed of results. Chest Pain Course/Dx - Course Assessment/Plan: This patient is a 72-year-old female who presents to the emergency department with a chief complaint of epigastric and retrosternal chest pain. She also reports that she has some numbness in the right side of the face therefore she decided to come to the emergency department. The patient initially was in a night monitor and IV access was obtained. Neurological exam show no focal deficits. NIH score is equal to 0. Blood cultures results shows a WBC count of 12.4 sodium 136 and glucose 145. Chest x- ray impression: Limited exam due to morbid obesity. No compelling evidence of acute cardiopulmonary disease. Head CT impression: No acute interconnected process. Hemoglobin motion changes. Stable exam compared with December 17, 2017. During the examination the patient reports that she is having some right upper quadrant pain. The patient doesnt have any gallbladder or appendix. Therefore at this time I do not think that the patient would be benefiting ABDOMEN UP A BRICK CTA OR AN ULTRASOUND THE GALLBLADDER. The patient was given [place] for the pain and the symptoms improved. At this point I discussed all the findings and test results with the patient and she will be discharged home with follow-up with primary care physician. She was recommended to return to the emergency room she develops any other chest pain, shortness of breath or palpitations. Patient is hemodynamically stable alert and oriented 3 - Chest Pain Differential Diagnosis/HQI/PQRI: Acute TX, Angina, CHF, Chest Wall, GI Disease, Lower Respiratory Infection - Diagnoses Provider Diagnoses: Atypical chest pain, Epigastric pain Discharge - Sign-Out/Discharge Documenting (check all that apply): Discharge/Admit/Transfer - Discharge Plan Condition: Stable Disposition: HOME Patient Education Materials: Chest Pain (ED), Epigastric Pain (ED) Referrals: Richard Hensley DO [Primary Care Provider] - 1 Week Additional Instructions: RETURN TO THE EMERGENCY DEPARTMENT FOR WORSENING OR NEW SYMPTOMS. NIH Scale - NIH Scale Level of Consciousness: Alert/Keenly Responsive Ask Patient the Month and His/Her Age: Both Correct Ask Pt to Open/Close Eyes and Tobacco Cloth Reclaimer/Release Non-Paretic Hand: Both Correctly Best Gaze (Only Horizontal Eye Movement): Normal Visual Field Testing: No Visual Loss Facial Paresis-Pt to Smile & Close Eyes or Grimace Symmetry: Normal/Symmetrical Motor Function - Right Arm: No Drift-Holds 10 Seconds Motor Function - Left Arm: No Drift-Holds 10 Seconds Motor Function - Right Leg: No Drift-Holds 10 Seconds Motor Function - Left Leg: No Drift-Holds 10 Seconds Limb Ataxia-Must be out of Proportion to Weakness Present: Absent Sensory (Use Pinprick to Test Arms/Legs/Trunk/Face): Normal Best Language (Describe Picture, Name Items): No Aphasia Dysarthria (Read Several Words): Normal Extinction and Inattention: No Abnormality Total Score: 0 The documentation as recorded by the Gerardo beavers Julia accurately reflects the service I personally performed and the decisions made by Jeremy henley Walter, MD.
== END 2018-01-31 21:22 | disposition home or self-care (01) ==
LOC: ED 17:47
DX: R07.89 Other chest pain (principal); R10.13 Epigastric pain; Z87.891 Personal history of nicotine dependence; Z88.8 Allergy status to other drugs, medicaments and biological substances; Z88.3 Allergy status to other anti-infective agents
CPT/HCPCS: 36415; 70450; 71045; 80053; 82550; 82553; 83605; 83735; 83880; 84443; 84484; 85025; 85610; 93005; 99283

== ENCOUNTER 2018-04-06 07:47 | Emergency (ER) | payer MEDICARE, MEDICAID ==
[2018-04-06] MEDS ORDERED: Ondansetron INJ* 2 MG/ML VIAL IV ONE (08:03)
[2018-04-06] MEDS ORDERED: NS 0.9% 1000 ML* 1,000 ML IV ONE (08:03)
[2018-04-06] MEDS ORDERED: Morphine VIAL* 10 MG/ML 1 ML VIAL IV ONE (08:03)
[2018-04-06] MEDS ORDERED: Promethazine INJ(RESTRICTED)* 25 MG/ML 1 ML VIAL IV ONE (08:27)
[2018-04-06 08:28] LABS: ABS Basophils 0 10^3/ul (0-0.2); ABS Eosinophils 0 10^3/ul (0-0.6); ABS Lymphocytes 1.3 10^3/ul (1.0-4.8); ABS Monocytes 0.4 10^3/ul (0-0.8); ABS Nucleated RBC 0 10^3/ul; Eosinophil % 0.3 % (0-6); Hematocrit 41 % (35-47); Hemoglobin 13.6 g/dl (12.0-16.0); Lymphocyte % 13.6 % (25-47); Mean Corpuscular HGB Conc 33 g/dl (31-36); Mean Corpuscular Hemoglobin 27 pg (27-31); Mean Corpuscular Volume 80 fL (80-97); Mean Platelet Volume 8.7 um3 (7.4-10.4); Nucleated Red Blood Cells % 0; Platelet Count 213 10^3/ul (150-450); Red Blood Count 5.12 10^6/ul (4.00-5.40); Red Cell Distribution Width 15 % (10.5-15); White Blood Count 9.8 10^3/ul (3.5-10.8)
--- NOTE | 2018-04-06 08:37 | ED ---
Complex/Multi-Sys Presentation - HPI Summary HPI Summary: This is ruthann Carrero documenting for Dr. Riley Hernández MD. Pt is a 73 y/o F BIBA c/o nausea. The nausea began today and shes also been vomiting a lot. At triage she rated her pain as a 0/10 in intensity. Notes abdominal pain especially on palpation. Denies fever and hematuria. According to nurses report pt also denies diarrhea, SOB, or chest pain. PSHx of appendectomy and cholecystectomy. Denies alcohol use or smoking. - History Of Current Complaint Chief Complaint: EDAbdPain Time Seen by Provider: 04/06/18 07:58 Hx Obtained From: Patient Onset/Duration: Lasting Hours Severity Currently: None Associated Signs And Symptoms: Positive: Nausea, Vomiting, Abdominal Pain, Other - NEGATIVE: hematuria. Negative: SOB, Chest Pain, Diarrhea, Fever - Allergies/Home Medications Allergies/Adverse Reactions: Allergies Allergy/AdvReac Type Severity Reaction Status Date / Time metoclopramide [From Reglan] Allergy Intermediate Shortness Verified 04/06/18 07 :56 of Breath celecoxib [From Celebrex] Allergy Mild Rash Verified 04/06/18 07:56 cephalexin [From Keflex] Allergy Mild Rash Verified 04/06/18 07:56 ciprofloxacin [From Cipro] Allergy Mild Rash Verified 04/06/18 07:56 aspirin Allergy Unknown Verified 04/06/18 07:56 Reaction Details ondansetron Allergy Unknown Verified 04/06/18 07:56 [From Zofran (as Reaction hydrochloride)] Details ceftriaxone [From Rocephin] AdvReac Hallucinati Verified 04/06/18 07:56 ons Home Medications: Home Medications Simethicone [Gas-X] 1 - 2 cap PO TID 04/06/18 [History Confirmed 04/06/18] Tramadol HCl 50 mg PO Q6H PRN 04/06/18 [History Confirmed 04/06/18] PMH/Surg Hx/FS Hx/Imm Hx Endocrine/Hematology History: Reports: Hx Anticoagulant Therapy Denies: Hx Diabetes, Hx Systemic Lupus Erythematosus, Hx Thyroid Disease, Hx Anemia Cardiovascular History: Reports: Hx Deep Vein Thrombosis, Hx Hypercholesterolemia Denies: Hx Aneurysm, Hx Angina, Hx Auto Implanted Cardiovert Defib, Hx Congestive Heart Failure, Hx Hypertension, Hx Pacemaker/ICD, Other Cardiovascular Problems/Disorders Respiratory History: Reports: Hx Asthma - environmental allergies, Hx Pulmonary Embolism, Hx Seasonal Allergies Denies: Hx Chronic Obstructive Pulmonary Disease (COPD), Hx Sleep Apnea GI History: Reports: Hx Gall Bladder Disease, Hx Gastroesophageal Reflux Disease Denies: Hx Cirrhosis, Hx Crohn's Disease, Hx Diverticulosis, Hx Irritable Bowel, Hx Ulcer History: Reports: Hx Renal Disease, Other Problems/Disorders - renal disease Denies: Hx Kidney Infection, Hx Kidney Stones Musculoskeletal History: Reports: Hx Arthritis, Hx Osteoporosis - 11/01/12 Denies: Hx Gout Sensory History: Reports: Hx Contacts or Glasses Denies: Hx Deafness, Hx Hearing Aid Opthamlomology History: Reports: Hx Contacts or Glasses Neurological History: Reports: Hx Headaches, Hx Migraine, Other Neuro Impairments/Disorders - migraines Denies: Hx Dementia, Hx Seizures Psychiatric History: Denies: Hx Anxiety, Hx Eating Disorder, Hx Depression, Hx Panic Disorder, Hx Schizophrenia, Hx Suicide Attempt, Hx Substance Abuse - Surgical History Surgery Procedure, Year, and Place: hysterectomy, rt breast biopsy, cholecystectomy, appendectomy Hx Anesthesia Reactions: No - Immunization History Date of Tetanus Vaccine: Unk Date of Influenza Vaccine: Fall 2016 Infectious Disease History: No Infectious Disease History: Denies: Hx Hepatitis, Hx Human Immunodeficiency Virus (HIV), Hx Tuberculosis , Traveled Outside the [place] in Last 30 Days - Family History Known Family History: Positive: Cardiac Disease, Hypertension Family History: Denies FHx breast cancer - Social History Alcohol Use: None Hx Substance Use: No Substance Use Type: Reports: None Hx Tobacco Use: Yes Smoking Status (MU): Former Smoker Review of Systems Negative: Fever Negative: Chest Pain Negative: Shortness Of Breath Positive: Abdominal Pain, Nausea. Negative: Vomiting, Diarrhea Negative: hematuria All Other Systems Reviewed And Are Negative: Yes Physical Exam - Summary Physical Exam Summary: Appearance: Well appearing, no pain distress Skin: warm, dry, reflects adequate perfusion Head/face: normal Eyes: EOMI, [place] ENT: normal Neck: supple, non-tender Respiratory: CTA, breath sounds present Cardiovascular: RRR, pulses symmetrical Abdomen: diffuse tenderness in abdomen, soft Bowel: present Musculoskeletal: normal, strength/ROM intact Neuro: normal, sensory motor intact, A&Ox3 Triage Information Reviewed: Yes Vital Signs On Initial Exam: Initial Vitals Temp Pulse Resp BP Pulse Ox 97.3 F 92 12 170/83 98 04/06/18 07:49 04/06/18 07:49 04/06/18 07:49 04/06/18 07:49 04/06/18 07:49 Vital Signs Reviewed: Yes Diagnostics - Vital Signs Vital Signs Temp Pulse Resp BP Pulse Ox 04/06/18 08:00 91 23 94 04/06/18 07:53 88 16 98 04/06/18 07:49 97.3 F 92 12 170/83 98 - Laboratory Result Diagrams: 04/06/18 08:12 04/06/18 09:34 Lab Statement: Any lab studies that have been ordered have been reviewed, and results considered in the medical decision making process. - Radiology CXR Radiology Interpretation Completed By: Radiologist - 08:03. IMPRESSION: NO ACTIVE CARDIOPULMONARY DISEASE. ED Physician reviewed this report. - CT CT Abd/Pel CT Interpretation Completed By: Radiologist - 08:04. IMPRESSION: 2.5 x 2.3 x 1.8 cm cecal mass protruding into the lumen suspicious for a colon carcinoma. No compelling CT evidence for transmural extension. Negative for resulting bowel obstruction. Absence of enteric contrast significantly limited conspicuity of this finding on the recent prior exam. Colonoscopy suggested for further assessment. Negative for ascites. Negative for lymphadenopathy. Negative for suspicious focal hepatic lesions. Severe colonic diverticulosis most marked at the sigmoid colon without findings of acute diverticulitis. ED Physician reviewed this report. - EKG 8:22 Cardiac Rate: NL - 86 bpm EKG Rhythm: Sinus Rhythm EKG Interpretation: right bundle branch block Re-Evaluation - Re-Evaluation First Eval Re-Evaluation Time: 12:13 Change: Improved - Pt feels better. Second Eval Re-Evaluation Time: 12:40 - Tells pt he is going to discharge her and she should see Dr. Ford as soon as possible for colonoscopy. Pt is agreeable with this plan. Complex Multi-Symp Course/Dx Course Of Treatment: Pt is a 73 y/o F BIBA c/o nausea that began today. Notes abdominal pain especially on palpation. Denies fever, hematuria, diarrhea, SOB, or chest pain. PSHx of appendectomy and cholecystectomy. Physical exam revealed diffuse tenderness in abdomen. Pt given fluid, Zofran, Morphine, and Phenergan. CXR showed no active pulmonary disease. CT Abd/Pel showed a 2.5 x 2.3 x 1.8 cm cecal mass protruding into the lumen suspicious for a colon carcinoma. Spoke with Dr. Ford who recommended pt follow up with him at his office as soon as possible for a colonoscopy. Pt diagnosed with cecal mass and discharged and told to follow up with Dr. Ford. Pt is agreeable with this plan. - Diagnoses Differential Diagnoses/HQI/PQRI: Urinary Tract Infection, Other - abd pain Provider Diagnoses: Cecum mass - Physician Notifications Discussed Care Of Patient With: Raffaele Ford - Recommended that pt follow up with him in his office for a colonoscopy as soon as possible Time Discussed With Above Provider: 12:15 Instructed by Provider To: Other - 12:10- Spoke with Dr. Davis who recommended he speak with Dr. Ford. Discharge - Sign-Out/Discharge Documenting (check all that apply): Patient Departure - Discharge - Discharge Plan Condition: Stable Disposition: HOME Patient Education Materials: Acute Abdominal Pain (ED) Referrals: Richard Hensley DO [Primary Care Provider] - 3 Days Raffaele Ford MD [Medical Doctor] - As Soon As Possible Additional Instructions: Follow up with Dr. Ford as soon as possible for colonoscopy. Return to ED for any new or worsening symptoms. - Billing Disposition and Condition Condition: STABLE Disposition: Home
[2018-04-06 08:44] LABS: INR 1.27 (0.77-1.02)
[2018-04-06] MEDS ORDERED: Iodixanol* (CONTRAST) 320 MG/ML 100 ML SDV IV ONE (09:03)
--- NOTE | 2018-04-06 09:24 | RAD ---
HISTORY: abd pain/nausea COMPARISONS: January 31, 2018 VIEWS: 1: frontal portable view of the chest at 8:40 AM FINDINGS: LINES AND TUBES: None. CARDIOMEDIASTINAL SILHOUETTE: The cardiomediastinal silhouette is stable. PLEURA: The costophrenic angles are sharp. No pleural abnormalities are noted. LUNG PARENCHYMA: The lungs are clear. ABDOMEN: The upper abdomen is clear. There is no subphrenic gas. BONES AND SOFT TISSUES: No bone or soft tissue abnormalities are noted. IMPRESSION: NO ACTIVE CARDIOPULMONARY DISEASE.
--- NOTE | 2018-04-06 11:06 | RAD ---
INDICATION: Generalized illness. Post cholecystectomy, appendectomy, hysterectomy. COMPARISON: December 10, 2017 CT. TECHNIQUE: Multidetector CT images were obtained from the lung bases to the ischial tuberosities with 100 mL Visipaque 320 IV and oral contrast. Multiplanar reformation. REPORT: VISUALIZED INFERIOR THORAX: Minimal dependent basilar atelectasis. LIVER / GALLBLADDER / PANCREAS / SPLEEN: Post cholecystectomy. Negative for biliary dilatation. Unremarkable liver. Advanced fatty replacement of the pancreas without suspicious finding. Unremarkable spleen. ALIMENTARY TRACT: Negative for CT abnormality of the upper GI or small bowel. Enteric contrast extends to the proximal transverse colon. Enteric contrast outlines a peripheral mural based soft tissue density mass at the cecum lateral and below the ileocecal valve measuring up to 2.5 x 2.3 x 1.8 cm. No additional focal colonic lesions evident. Severe colonic diverticulosis most marked at the sigmoid colon without findings of acute diverticulitis. Negative for ascites, free air, or significant hernias. MESENTERIC: Negative for lymphadenopathy. ADRENAL / GENITOURINARY: Normal adrenal glands. Small cortical cyst at the peripheral lower pole of the RIGHT kidney. Symmetric nephrograms and pyelograms. Negative for obstructive uropathy. Unremarkable nondilated ureters and distended urinary bladder. Post hysterectomy. Unremarkable adnexal regions. RETROPERITONEAL: Negative for lymphadenopathy. VASCULAR: Mild atherosclerotic plaque of normal diameter abdominal aorta and iliac arteries. Physiologic partial distention of the IVC. BONES: Negative for suspicious focal osseous lesions. SOFT TISSUE: Unremarkable. IMPRESSION: #. 2.5 x 2.3 x 1.8 cm cecal mass protruding into the lumen suspicious for a colon carcinoma. No compelling CT evidence for transmural extension. Negative for resulting bowel obstruction. Absence of enteric contrast significantly limited conspicuity of this finding on the recent prior exam. Colonoscopy suggested for further assessment #. Negative for ascites #. Negative for lymphadenopathy. #. Negative for suspicious focal hepatic lesions. #. Severe colonic diverticulosis most marked at the sigmoid colon without findings of acute diverticulitis.
[2018-04-06 11:29] LABS: Urine Appearance Cloudy; Urine Blood Negative (Negative); Urine Color Yellow; Urine Ketones Negative (Negative); Urine Protein Negative (Negative); Urine Red Blood Cell Absent (Absent); Urine Specific Gravity 1.016 (1.010-1.030); Urine Urobilinogen Negative (Negative); Urine White Blood Cell 2+(11-20/hpf) (Absent)
[2018-04-06 13:01] VITALS: BP 129/59
== END 2018-04-06 15:24 | disposition home or self-care (01) ==
LOC: ED 07:47
DX: K63.89 Other specified diseases of intestine (principal); Z87.891 Personal history of nicotine dependence; Z79.01 Long term (current) use of anticoagulants; E78.00 Pure hypercholesterolemia, unspecified; Z86.718 Personal history of other venous thrombosis and embolism; I45.10 Unspecified right bundle-branch block
CPT/HCPCS: 36415; 71045; 74177; 80053; 81003; 81015; 83605; 83690; 84484; 85025; 85610; 85730; 86140; 87077; 87086; 93005; 96361; 96374; 96375; 99284; J2270; J2550; Q9967

== ENCOUNTER 2018-07-01 15:12 | Emergency (ER) | payer MEDICARE, MEDICAID ==
[2018-07-01 15:31] LABS: ABS Basophils 0 10^3/ul (0-0.2); ABS Eosinophils 0.1 10^3/ul (0-0.6); ABS Lymphocytes 1.9 10^3/ul (1.0-4.8); ABS Monocytes 0.6 10^3/ul (0-0.8); ABS Neutrophils 6.1 10^3/ul (1.5-7.7); ABS Nucleated RBC 0 10^3/ul; Eosinophil % 1.2 % (0-6); Hematocrit 41 % (35-47); Hemoglobin 13.2 g/dl (12.0-16.0); Lymphocyte % 22.2 % (25-47); Mean Corpuscular HGB Conc 32 g/dl (31-36); Mean Corpuscular Hemoglobin 26 pg (27-31); Mean Corpuscular Volume 81 fL (80-97); Mean Platelet Volume 8.5 um3 (7.4-10.4); Nucleated Red Blood Cells % 0; Platelet Count 230 10^3/ul (150-450); Red Blood Count 5.07 10^6/ul (4.00-5.40); Red Cell Distribution Width 16 % (10.5-15); White Blood Count 8.7 10^3/ul (3.5-10.8)
[2018-07-01 15:37] LABS: INR 1.07 (0.77-1.02)
--- NOTE | 2018-07-01 15:43 | RAD ---
HISTORY: chest/abd pain COMPARISONS: May 15, 2018 VIEWS: 1: frontal AP view of the chest at 3:25 PM FINDINGS: LINES AND TUBES: None. CARDIOMEDIASTINAL SILHOUETTE: The cardiomediastinal silhouette is normal for portable technique. PLEURA: The costophrenic angles are sharp. No pleural abnormalities are noted. LUNG PARENCHYMA: The lungs are clear. ABDOMEN: The upper abdomen is clear. There is no subphrenic gas. BONES AND SOFT TISSUES: No bone or soft tissue abnormalities are noted. IMPRESSION: NO ACTIVE CARDIOPULMONARY DISEASE.
[2018-07-01 15:48] LABS: EGFR Non-African American 68.9 (>60)
--- NOTE | 2018-07-01 15:55 | ED ---
Complex/Multi-Sys Presentation - HPI Summary HPI Summary: Pt is a 73 year old F presenting to the ED with a chief complaint of numbness in her R jaw while she was sitting watching TV that lasted about 45 minutes. It hurt quite a bit at first. She then got pain in her R abdomen. Pt denies chest pains, cough, or palpitations. Pt reports nausea and bowel movement right before the pain started. The pt has a hx of diabetes, DVT, blood clot in head, and colon polyps. The pt had her appendix and gallbladder removed .The pt denies heart problems, smoking or drinking. - History Of Current Complaint Chief Complaint: EDAbdPain Time Seen by Provider: 07/01/18 15:13 Hx Obtained From: Patient Onset/Duration: Sudden Onset, Lasting Minutes - 45 minutes, Resolved Timing: Constant Severity Currently: Mild Severity Initially: Mild Location: Negative - numbness in jaw that led to abd pain. both resolved Associated Signs And Symptoms: Positive: Nausea. Negative: Cough, Chest Pain, Palpitations - Allergies/Home Medications Allergies/Adverse Reactions: Allergies Allergy/AdvReac Type Severity Reaction Status Date / Time metoclopramide [From Reglan] Allergy Intermediate Shortness Verified 07/01/18 15 :25 of Breath celecoxib [From Celebrex] Allergy Mild Rash Verified 07/01/18 15:25 cephalexin [From Keflex] Allergy Mild Rash Verified 07/01/18 15:25 ciprofloxacin [From Cipro] Allergy Mild Rash Verified 07/01/18 15:25 aspirin Allergy Unknown Verified 07/01/18 15:25 Reaction Details ondansetron Allergy Unknown Verified 07/01/18 15:25 [From Zofran (as Reaction hydrochloride)] Details ceftriaxone [From Rocephin] AdvReac Hallucinati Verified 07/01/18 15:25 ons PMH/Surg Hx/FS Hx/Imm Hx Previously Healthy: No Endocrine/Hematology History: Reports: Hx Anticoagulant Therapy Denies: Hx Diabetes, Hx Systemic Lupus Erythematosus, Hx Thyroid Disease, Hx Anemia Cardiovascular History: Reports: Hx Deep Vein Thrombosis, Hx Hypercholesterolemia, Other Cardiovascular Problems/Disorders - blood clot in head Denies: Hx Aneurysm, Hx Angina, Hx Auto Implanted Cardiovert Defib, Hx Congestive Heart Failure, Hx Hypertension, Hx Pacemaker/ICD Respiratory History: Reports: Hx Asthma - environmental allergies, Hx Pulmonary Embolism, Hx Seasonal Allergies Denies: Hx Chronic Obstructive Pulmonary Disease (COPD), Hx Sleep Apnea GI History: Reports: Hx Gall Bladder Disease, Hx Gastroesophageal Reflux Disease , Other GI Disorders - polyps in colon Denies: Hx Cirrhosis, Hx Crohn's Disease, Hx Diverticulosis, Hx Irritable Bowel, Hx Ulcer History: Reports: Hx Renal Disease Denies: Hx Kidney Infection, Hx Kidney Stones Musculoskeletal History: Reports: Hx Arthritis, Hx Osteoporosis - 11/01/12 Denies: Hx Gout Sensory History: Reports: Hx Contacts or Glasses Denies: Hx Deafness, Hx Hearing Aid Opthamlomology History: Reports: Hx Contacts or Glasses Neurological History: Reports: Hx Headaches, Hx Migraine, Other Neuro Impairments/Disorders - migraines Denies: Hx Dementia, Hx Seizures Psychiatric History: Denies: Hx Anxiety, Hx Eating Disorder, Hx Depression, Hx Panic Disorder, Hx Schizophrenia, Hx Suicide Attempt, Hx Substance Abuse - Surgical History Surgery Procedure, Year, and Place: hysterectomy, rt breast biopsy, cholecystectomy, appendectomy Hx Anesthesia Reactions: No - Immunization History Date of Tetanus Vaccine: Unk Date of Influenza Vaccine: Fall 2016 Infectious Disease History: No Infectious Disease History: Denies: Hx Hepatitis, Hx Human Immunodeficiency Virus (HIV), Hx Tuberculosis , Traveled Outside the [place] in Last 30 Days - Family History Known Family History: Positive: Cardiac Disease, Hypertension, Other - NEGATIVE : breast cancer Family History: Denies FHx breast cancer - Social History Alcohol Use: None Hx Substance Use: No Substance Use Type: Reports: None Hx Tobacco Use: Yes Smoking Status (MU): Former Smoker Review of Systems Constitutional: Other - numbness in R jaw Positive: Skin Diaphoresis Negative: Palpitations, Chest Pain Negative: Cough Positive: Abdominal Pain, Nausea All Other Systems Reviewed And Are Negative: Yes Physical Exam - Summary Physical Exam Summary: Appearance: Well appearing, no pain distress Skin: warm, diaphoretic, reflects adequate perfusion Head/face: normal Eyes: EOMI, [place]ARR[place] ENT: mucous membranes moist Neck: supple, non-tender Respiratory: CTA, breath sounds present Cardiovascular: RRR, pulses symmetrical Abdomen: non-tender, soft Bowel Sounds: present Musculoskeletal: trace edema in feet, strength/ROM intact Neuro: normal, sensory motor intact, A&Ox3 Triage Information Reviewed: Yes Vital Signs On Initial Exam: Initial Vitals Pulse Pulse Ox 95 99 07/01/18 15:18 07/01/18 15:18 Vital Signs Reviewed: Yes Diagnostics - Vital Signs Vital Signs Temp Pulse Resp BP Pulse Ox 07/01/18 15:21 97.9 F 95 18 124/87 98 07/01/18 15:19 92 124/87 97 07/01/18 15:18 95 99 - Laboratory Lab Results: Lab Results 07/01/18 07/01/18 07/01/18 Range/Units 15:25 15:25 15:25 WBC 8.7 (3.5-10.8) 10^3/ul RBC 5.07 (4.00-5.40) 10^6/ul Hgb 13.2 (12.0-16.0) g/dl Hct 41 (35-47) % MCV 81 (80-97) fL MCH 26 L (27-31) pg MCHC 32 (31-36) g/dl RDW 16 H (10.5-15) % Plt Count 230 (150-450) 10^3/ul MPV 8.5 (7.4-10.4) um3 Neut % (Auto) 69.7 (38-83) % Lymph % (Auto) 22.2 L (25-47) % [place] % (Auto) 6.6 (0-7) % Eos % (Auto) 1.2 (0-6) % Baso % (Auto) 0.3 (0-2) % Absolute Neuts (auto) 6.1 (1.5-7.7) 10^3/ul Absolute Lymphs (auto) 1.9 (1.0-4.8) 10^3/ul Absolute Monos (auto) 0.6 (0-0.8) 10^3/ul Absolute Eos (auto) 0.1 (0-0.6) 10^3/ul Absolute Basos (auto) 0 (0-0.2) 10^3/ul Absolute Nucleated RBC 0 10^3/ul Nucleated RBC % 0 INR (Anticoag Therapy) (0.77-1.02) Sodium 139 (135-145) mmol/L Potassium 4.1 (3.5-5.0) mmol/L Chloride 107 (101-111) mmol/L Carbon Dioxide 29 (22-32) mmol/L Anion Gap 3 (2-11) mmol/L BUN 11 (6-24) mg/dL Creatinine 0.81 (0.51-0.95) mg/dL Est GFR ( Amer) 83.4 (>60) Est GFR (Non-Af Amer) 68.9 (>60) BUN/Creatinine Ratio 13.6 (8-20) Glucose 127 H (70-100) mg/dL Lactic Acid 1.0 (0.5-2.0) mmol/L Calcium 9.3 (8.6-10.3) mg/dL Total Bilirubin 0.30 (0.2-1.0) mg/dL AST 19 (13-39) U/L ALT 20 (7-52) U/L Alkaline Phosphatase 147 H (34-104) U/L Total Creatine Kinase 38 (10-223) U/L Troponin I 0.00 (<0.04) ng/mL C-Reactive Protein 4.30 (<8.01) mg/L Total Protein 6.7 (6.4-8.9) g/dL Albumin 3.7 (3.2-5.2) g/dL Globulin 3.0 (2-4) g/dL Albumin/Globulin Ratio 1.2 (1-3) Lipase 10 L (11.0-82.0) U/L //18 Range/Units 15:25 WBC (3.5-10.8) 10^3/ul RBC (4.00-5.40) 10^6/ul Hgb (12.0-16.0) g/dl Hct (35-47) % MCV (80-97) fL MCH (27-31) pg MCHC (31-36) g/dl RDW (10.5-15) % Plt Count (150-450) 10^3/ul MPV (7.4-10.4) um3 Neut % (Auto) (38-83) % Lymph % (Auto) (25-47) % [place] % (Auto) (0-7) % Eos % (Auto) (0-6) % Baso % (Auto) (0-2) % Absolute Neuts (auto) (1.5-7.7) 10^3/ul Absolute Lymphs (auto) (1.0-4.8) 10^3/ul Absolute Monos (auto) (0-0.8) 10^3/ul Absolute Eos (auto) (0-0.6) 10^3/ul Absolute Basos (auto) (0-0.2) 10^3/ul Absolute Nucleated RBC 10^3/ul Nucleated RBC % INR (Anticoag Therapy) 1.07 H (0.77-1.02) Sodium (135-145) mmol/L Potassium (3.5-5.0) mmol/L Chloride (101-111) mmol/L Carbon Dioxide (22-32) mmol/L Anion Gap (2-11) mmol/L BUN (6-24) mg/dL Creatinine (0.51-0.95) mg/dL Est GFR ( Amer) (>60) Est GFR (Non-Af Amer) (>60) BUN/Creatinine Ratio (8-20) Glucose (70-100) mg/dL Lactic Acid (0.5-2.0) mmol/L Calcium (8.6-10.3) mg/dL Total Bilirubin (0.2-1.0) mg/dL AST (13-39) U/L ALT (7-52) U/L Alkaline Phosphatase (34-104) U/L Total Creatine Kinase (10-223) U/L Troponin I (<0.04) ng/mL C-Reactive Protein (<8.01) mg/L Total Protein (6.4-8.9) g/dL Albumin (3.2-5.2) g/dL Globulin (2-4) g/dL Albumin/Globulin Ratio (1-3) Lipase (11.0-82.0) U/L Result Diagrams: 07/01/18 15:25 07/01/18 15:25 Lab Statement: Any lab studies that have been ordered have been reviewed, and results considered in the medical decision making process. - Radiology Chest XRay Xray Interpretation: No Acute Changes - No active cardiopulmonary disease. Radiology Interpretation Completed By: Radiologist - ED physician has reviewed this report. - EKG 1526 Cardiac Rate: NL - 90bpm EKG Rhythm: Sinus Rhythm ST Segment: Non-Specific Ectopy: None EKG Interpretation: RBBB, nml axis Complex Multi-Symp Course/Dx Course Of Treatment: Pt with resolution of sx here. Abd soft and nontender. EKG , trop x 2 are neg. ? UTI. Macrobid here. F/U closely with PMD. - Diagnoses Differential Diagnoses/HQI/PQRI: Cardiac Ischemia, Metabolic Abnormality, Urinary Tract Infection Provider Diagnoses: Nausea, Facial pain, Urinary tract infection Discharge - Sign-Out/Discharge Documenting (check all that apply): Patient Departure - Discharge Plan Condition: Improved Disposition: HOME Prescriptions: Nitrofurantoin Monohyd/M-Cryst [Macrobid 100 mg Capsule] 100 mg PO BID #14 cap Patient Education Materials: Urinary Tract Infection in Women (ED) Referrals: Richard Hensley DO [Primary Care Provider] - Additional Instructions: Call first thing in the morning to follow up with your doctor. Return with fever , vomiting, worse, chest pains, new symptoms or other concerns. - Billing Disposition and Condition Condition: IMPROVED Disposition: Home - Attestation Statements Document Initiated by Scribe: Yes Documenting Scribe: Mar Kerns Provider For Whom Darren is Documenting (Include Credential): Noel Kaplan MD. Scribe Attestation: IMar, scribed for Noel Kaplan MD. on 07/01/18 at 1904. Scribe Documentation Reviewed: Yes Provider Attestation: The documentation as recorded by the scribe, Mar Kerns accurately reflects the service I personally performed and the decisions made by , Noel Kaplan MD.
[2018-07-01 17:31] LABS: Urine Appearance Cloudy; Urine Blood Negative (Negative); Urine Color Yellow; Urine Ketones Negative (Negative); Urine Protein Negative (Negative); Urine Red Blood Cell Absent (Absent); Urine Specific Gravity 1.023 (1.010-1.030); Urine Urobilinogen Negative (Negative); Urine White Blood Cell 2+(11-20/hpf) (Absent)
[2018-07-01] MEDS ORDERED: Nitrofurantoin Macrocrystals* 100 MG CAP PO ONE (17:52)
[2018-07-01 17:53] VITALS: BP 132/59
== END 2018-07-01 18:19 | disposition home or self-care (01) ==
LOC: ED 15:12
DX: G50.1 Atypical facial pain (principal); R11.0 Nausea; N39.0 Urinary tract infection, site not specified; Z86.718 Personal history of other venous thrombosis and embolism; Z79.01 Long term (current) use of anticoagulants; Z88.6 Allergy status to analgesic agent; Z88.1 Allergy status to other antibiotic agents; Z88.8 Allergy status to other drugs, medicaments and biological substances; Z87.891 Personal history of nicotine dependence
CPT/HCPCS: 36415; 71045; 80053; 81003; 81015; 82550; 83605; 83690; 83880; 84484; 85025; 85610; 86140; 87086; 93005; 99283; A9270-GY

== ENCOUNTER 2018-07-03 21:41 | Emergency (ER) | payer MEDICARE, MEDICAID ==
[2018-07-03] MEDS ORDERED: Meclizine TAB* 12.5 MG PO ONE (22:24)
--- NOTE | 2018-07-03 22:26 | ED ---
Dizziness - HPI Summary HPI Summary: The pt is a 73 y/o female is BIBA to [facility] c/o sudden onset vertigo today evening while watching the television. She notes dizziness, weakness, vomiting ( 2 episodes) and nausea but denies vision changes, and SMITH . The sx started after she took a prescribed antibiotic for an ongoing UTI. The dizziness is aggravated by standing. She has been seen for similar sx before. - History Of Current Complaint Chief Complaint: EDWeakness Stated Complaint: NAUSEA/DIZZINESS Time Seen by Provider: 07/03/18 22:16 Hx Obtained From: Patient Onset/Duration: Still Present, Suddenly Character: Room Spinning Aggravating Factor(s): Other - Standing Alleviating Factor(s): Rest Associated Signs And Symptoms: Positive: Nausea, Vomiting. Negative: Visual Changes - Allergies/Home Medications Allergies/Adverse Reactions: Allergies Allergy/AdvReac Type Severity Reaction Status Date / Time metoclopramide [From Reglan] Allergy Intermediate Shortness Verified 07/01/18 15 :25 of Breath celecoxib [From Celebrex] Allergy Mild Rash Verified 07/01/18 15:25 cephalexin [From Keflex] Allergy Mild Rash Verified 07/01/18 15:25 ciprofloxacin [From Cipro] Allergy Mild Rash Verified 07/01/18 15:25 aspirin Allergy Unknown Verified 07/01/18 15:25 Reaction Details ondansetron Allergy Unknown Verified 07/01/18 15:25 [From Zofran (as Reaction hydrochloride)] Details ceftriaxone [From Rocephin] AdvReac Hallucinati Verified 07/01/18 15:25 ons PMH/Surg Hx/FS Hx/Imm Hx Previously Healthy: No Endocrine/Hematology History: Reports: Hx Anticoagulant Therapy Denies: Hx Diabetes, Hx Systemic Lupus Erythematosus, Hx Thyroid Disease, Hx Anemia Cardiovascular History: Reports: Hx Deep Vein Thrombosis, Hx Hypercholesterolemia, Other Cardiovascular Problems/Disorders - blood clot in head Denies: Hx Aneurysm, Hx Angina, Hx Auto Implanted Cardiovert Defib, Hx Congestive Heart Failure, Hx Hypertension, Hx Pacemaker/ICD Respiratory History: Reports: Hx Asthma - environmental allergies, Hx Pulmonary Embolism, Hx Seasonal Allergies Denies: Hx Chronic Obstructive Pulmonary Disease (COPD), Hx Sleep Apnea GI History: Reports: Hx Gall Bladder Disease, Hx Gastroesophageal Reflux Disease , Other GI Disorders - polyps in colon Denies: Hx Cirrhosis, Hx Crohn's Disease, Hx Diverticulosis, Hx Irritable Bowel, Hx Ulcer History: Reports: Hx Renal Disease Denies: Hx Kidney Infection, Hx Kidney Stones Musculoskeletal History: Reports: Hx Arthritis, Hx Osteoporosis - 11/01/12 Denies: Hx Gout Sensory History: Reports: Hx Contacts or Glasses Denies: Hx Deafness, Hx Hearing Aid Opthamlomology History: Reports: Hx Contacts or Glasses Neurological History: Reports: Hx Headaches, Hx Migraine, Other Neuro Impairments/Disorders - migraines Denies: Hx Dementia, Hx Seizures Psychiatric History: Denies: Hx Anxiety, Hx Eating Disorder, Hx Depression, Hx Panic Disorder, Hx Schizophrenia, Hx Suicide Attempt, Hx Substance Abuse - Surgical History Surgery Procedure, Year, and Place: hysterectomy, rt breast biopsy, cholecystectomy, appendectomy Hx Anesthesia Reactions: No - Immunization History Date of Tetanus Vaccine: Unk Date of Influenza Vaccine: Fall 2016 Infectious Disease History: No Infectious Disease History: Denies: Hx Hepatitis, Hx Human Immunodeficiency Virus (HIV), Hx Tuberculosis , Traveled Outside the [place] in Last 30 Days - Family History Known Family History: Positive: Cardiac Disease, Hypertension, Other - NEGATIVE : breast cancer Family History: Denies FHx breast cancer - Social History Occupation: Retired Alcohol Use: None Hx Substance Use: No Substance Use Type: Reports: None Hx Tobacco Use: Yes Smoking Status (MU): Former Smoker Review of Systems Constitutional: Other - Positive: Dizziness, weakness, vertigo Eyes: Negative - Vision changes Positive: Vomiting, Nausea Negative: Headache All Other Systems Reviewed And Are Negative: Yes Physical Exam - Summary Physical Exam Summary: Appearance:Elderly obese female lying in bed comfortably Skin: Warm, dry, no obvious rash Eyes: sclera anicteric, no conjunctival pallor ENT: mucous membranes moist, pharynx appears normal Neck: Supple, nontender Respiratory: Clear to auscultation, no signs of respiratory distress Cardiovascular: Normal S1, S2. No murmurs. Normal distal pulses in tibial and radial bilaterally. Abdomen: Soft, nontender, normal active bowel sounds present Musculoskeletal: Normal, Strength/ROM Intact, Motor function in all 4 extremities is normal and symmetric. There is no rigidity or tremor noted. Neurological: A&Ox3, awake and alert, mentation is normal, speech is fluent and appropriate, Level of consciousness nml. No ataxia,Finger to nose testing normal. No nyastagmus The patient is alert and oriented. Cranial nerves are grossly intact. Gaze is conjugate and without nystagmus. Peripheral vision is intact to confrontation. There are no gross sensory abnormalities to light touch. There is no truncal or fine motor ataxia. Gait is normal. Psychiatric: affect is normal, does not appear anxious or depressed Triage Information Reviewed: Yes Vital Signs On Initial Exam: Initial Vitals Temp Pulse Resp BP Pulse Ox 98.7 F 86 20 101/83 95 07/03/18 21:50 07/03/18 21:50 07/03/18 21:50 07/03/18 21:50 07/03/18 21:50 Vital Signs Reviewed: Yes Diagnostics - Vital Signs Vital Signs Temp Pulse Resp BP Pulse Ox 07/03/18 22:00 85 16 95 07/03/18 21:53 84 14 101/83 99 07/03/18 21:51 9 07/03/18 21:50 98.7 F 86 20 101/83 95 - Laboratory Result Diagrams: 07/03/18 22:55 07/03/18 22:55 Lab Statement: Any lab studies that have been ordered have been reviewed, and results considered in the medical decision making process. - EKG 22:57 Cardiac Rate: NL - 88 bpm EKG Rhythm: Sinus Rhythm Summary of EKG Findings: P waves, QRS complex, and T waves are within normal limits, T waves and intervals are normal, no ischemic changes. This is a normal EKG Re-Evaluation - Re-Evaluation First Eval Re-Evaluation Time: 00:35 Change: Improved - The pt is feeling better. She is up and is ready to go home. Dizzy Course/Dx - Course Course Of Treatment: A 73 year-old F presents to the ED with a CC of sudden onset vertigo today evening while watching the television. She notes dizziness, weakness, vomiting (2 episodes) and nausea but denies vision changes, and SMITH . The sx started after she took a prescribed antibiotic for an ongoing UTI. The dizziness is aggravated by standing. A physical exam revealed an elderly obese female who is awake and alert, no ataxia, finger to nose testing normal and no nystagmus. An EKG is unremarkable. Patient will be discharged with a final Dx of peripheral vertigo and a Meclizine prescription. Pt is agreeable with this plan. Allergies noted. - Diagnoses Provider Diagnoses: Peripheral vertigo Discharge - Sign-Out/Discharge Documenting (check all that apply): Patient Departure - DC - Discharge Plan Condition: Improved Disposition: HOME Prescriptions: Meclizine TAB* [Antivert 12.5 TAB*] 25 mg PO TID PRN #20 tab PRN Reason: Dizziness Patient Education Materials: Vertigo (ED) Referrals: Richard Hensley DO [Primary Care Provider] - 2 Days (if not better) - Billing Disposition and Condition Condition: IMPROVED Disposition: Home - Attestation Statements Document Initiated by Scribe: Yes Documenting Scribe: Bren Reina Provider For Whom Sergioibe is Documenting (Include Credential): Dr. Gregor Banks MD Scribe Attestation: Bren Mason scribed for Dr. Gregor Banks MD on 07/05/18 at 1435. Scribe Documentation Reviewed: Yes Provider Attestation: The documentation as recorded by the sergioibBren hunt accurately reflects the service I personally performed and the decisions made by me, Dr. Gregor Banks MD
[2018-07-03 23:05] LABS: ABS Basophils 0 10^3/ul (0-0.2); ABS Eosinophils 0.1 10^3/ul (0-0.6); ABS Lymphocytes 1.6 10^3/ul (1.0-4.8); ABS Monocytes 0.5 10^3/ul (0-0.8); ABS Neutrophils 6.8 10^3/ul (1.5-7.7); ABS Nucleated RBC 0 10^3/ul; Eosinophil % 0.8 % (0-6); Hematocrit 40 % (35-47); Lymphocyte % 18.1 % (25-47); Mean Corpuscular HGB Conc 33 g/dl (31-36); Mean Corpuscular Hemoglobin 26 pg (27-31); Mean Corpuscular Volume 81 fL (80-97); Mean Platelet Volume 8.4 um3 (7.4-10.4); Nucleated Red Blood Cells % 0.1; Platelet Count 225 10^3/ul (150-450); Red Blood Count 4.96 10^6/ul (4.00-5.40); Red Cell Distribution Width 15 % (10.5-15); White Blood Count 9.1 10^3/ul (3.5-10.8)
[2018-07-03 23:21] LABS: EGFR Non-African American 70.9 (>60)
[2018-07-03 23:24] LABS: Urine Appearance Cloudy; Urine Blood Negative (Negative); Urine Color Yellow; Urine Ketones Negative (Negative); Urine Protein Negative (Negative); Urine Red Blood Cell Absent (Absent); Urine Specific Gravity 1.003 (1.010-1.030); Urine Urobilinogen Negative (Negative); Urine White Blood Cell 2+(11-20/hpf) (Absent)
[2018-07-04 02:02] VITALS: BP 137/79
== END 2018-07-04 01:45 | disposition home or self-care (01) ==
LOC: ED 21:41
DX: H81.399 Other peripheral vertigo, unspecified ear (principal); R11.2 Nausea with vomiting, unspecified; R53.1 Weakness; R42 Dizziness and giddiness; Z79.01 Long term (current) use of anticoagulants; Z87.891 Personal history of nicotine dependence
CPT/HCPCS: 36415; 80048; 81003; 81015; 85025; 87086; 93005; 99283; A9270-GY

== ENCOUNTER 2022-06-21 19:06 | Inpatient (IN) ==
[2022-06-21 22:06] LABS: Hematocrit 32 % (35-47); Hemoglobin 9.3 g/dL (12.0-16.0); Mean Corpuscular HGB Conc 29 g/dL (31-36); Mean Corpuscular Hemoglobin 18 pg (27-31); Mean Corpuscular Volume 63 fL (80-97); Platelet Count 171 10^3/uL (150-450); Red Blood Count 5.12 10^6 /uL (3.70-4.87); Red Cell Distribution Width 21 % (10-15); White Blood Count 21.5 10^3/uL (3.5-10.8)
[2022-06-21 22:13] LABS: Albumin 3.8 g/dL (3.2-5.2); Calcium 9.7 mg/dL (8.6-10.3); Potassium 4.3 mmol/L (3.5-5.0); Total Bilirubin 0.5 mg/dL (0.2-1.0)
[2022-06-21 22:19] LABS: Albumin/Globulin Ratio 1.6 (1-3); C Reactive Protein 58.91 mg/L (<8.01); Globulin 2.4 g/dL (2-4); Total Protein 6.2 g/dL (6.4-8.9); eGFR CKD-EPI 55.3 (>60)
[2022-06-21 22:46] LABS: Microcytosis 3+
[2022-06-21 22:47] LABS: Hypochromasia 1+
[2022-06-21 22:49] LABS: Polychromasia 2+
[2022-06-21 22:50] LABS: Acanthocytes 2+; Anisocytosis 2+
[2022-06-21 22:51] LABS: ABS Basophils 0.1 10^3/ul (0-0.2); ABS Monocytes 1.3 10^3/ul (0-0.8); ABS Neutrophils 18.1 10^3/ul (1.5-7.7); Lymphocyte % 9.3 %; Platelet Morphology Large
[2022-06-21 23:25] LABS: Activated Partial Thrombo Time 22.8 seconds (26.0-38.0); INR 1.43 (0.89-1.11)
[2022-06-21] MEDS ORDERED: Iodixanol (CONTRAST) 320 MG/ML 100 ML SDV IV ONE (23:46)
[2022-06-21 23:47] LABS: High Sensitivity Troponin 1 Hr 62 pg/mL (<15)
[2022-06-22] MEDS ORDERED: Piperacillin/Tazobac ADVAN 3.375 GM in NS 0.9% 100 ml BAG 100 ML IV ONE (00:26)
[2022-06-22 01:42] LABS: Urine Appearance Cloudy; Urine Bilirubin Negative (Negative); Urine Blood 1+ (Negative); Urine Color Yellow; Urine Glucose 3+(>=500 mg/dL) (Negative); Urine Ketones Negative (Negative); Urine Nitrite Negative (Negative); Urine Protein 2+(100 mg/dL) (Negative); Urine Specific Gravity 1.023 (1.002-1.030); Urine Urobilinogen Negative (Negative)
[2022-06-22 01:45] LABS: Urine Bacteria 2+ (Absent); Urine Red Blood Cell 2+(6-10/hpf) (Absent); Urine Squamous Epithelial Cell Present (Absent); Urine White Blood Cell 3+(>20/hpf) (Absent)
[2022-06-22] MEDS: Heparin DRIP 25,000 UNITS BAG 25,000 UNITS/500 ML BAG IV SCH (03:13)
[2022-06-22 03:26] LABS: Hematocrit 29 % (35-47); Hemoglobin 8.7 g/dL (12.0-16.0); Mean Corpuscular HGB Conc 30 g/dL (31-36); Mean Corpuscular Hemoglobin 19 pg (27-31); Mean Corpuscular Volume 62 fL (80-97); Red Cell Distribution Width 21 % (10-15); White Blood Count 16.8 10^3/uL (3.5-10.8)
[2022-06-22 03:41] LABS: eGFR CKD-EPI 60.2 (>60)
[2022-06-22 04:04] LABS: ABS Eosinophils 0.1 10^3/ul (0-0.6); ABS Lymphocytes 1.6 10^3/ul (1.0-4.8); ABS Monocytes 1.2 10^3/ul (0-0.8); Eosinophil % 0.3 %; Lymphocyte % 9.6 %; Mean Platelet Volume 8.9 fL (7.4-10.4); Nucleated Red Blood Cells % 0.1; Platelet Count 138 10^3/uL (150-450)
[2022-06-22] MEDS ORDERED: Prochlorperazine 5 mg/ml 2 ml VIAL (10 mg) IV PRN (04:34)
[2022-06-22] MEDS ORDERED: Lactated Ringers 500 ml BAG 500 ML IV ONE (04:54)
[2022-06-22] MEDS ORDERED: Lactated Ringers 1000 ml BAG 1,000 ML IV ONE (05:06)
[2022-06-22] MEDS: Rivastigmine 1.5 mg CAP (NF) PO SCH ×2 (10:23→20:34)
[2022-06-22] MEDS ORDERED: Heparin 5000 UNITS/ML 1 mL VIAL ONE (11:23)
[2022-06-22] MEDS ORDERED: Heparin 5000 UNITS/ML 1 mL VIAL SUBCUT ONE (11:29)
[2022-06-22] MEDS ORDERED: Heparin 5000 UNITS/ML 1 mL VIAL IV ONE (12:00)
[2022-06-22] MEDS ORDERED: Heparin 5000 UNITS/ML 1 mL VIAL IV SCH ×2 (12:00)
[2022-06-22] MEDS: Nitrofurantoin (monohydrate/macrocrystals) 100 mg CAP PO SCH (20:34)
[2022-06-23] MEDS: Heparin DRIP 25,000 UNITS BAG 25,000 UNITS/500 ML BAG IV SCH (00:53)
[2022-06-23 09:05] LABS: Hematocrit 29 % (35-47); Hemoglobin 8.4 g/dL (12.0-16.0); Mean Corpuscular HGB Conc 29 g/dL (31-36); Mean Corpuscular Hemoglobin 18 pg (27-31); Mean Corpuscular Volume 62 fL (80-97); Red Blood Count 4.68 10^6 /uL (3.70-4.87); Red Cell Distribution Width 20 % (10-15); White Blood Count 9.8 10^3/uL (3.5-10.8)
[2022-06-23 09:27] LABS: Potassium 3.2 mmol/L (3.5-5.0)
[2022-06-23 09:38] LABS: eGFR CKD-EPI 73.8 (>60)
[2022-06-23] MEDS ORDERED: Potassium Chloride LIQUID 20 MEQ/15 ML LIQUID PO ONE (09:40)
[2022-06-23] MEDS: Rivastigmine 1.5 mg CAP (NF) PO SCH (11:46)
[2022-06-23] MEDS: Nitrofurantoin (monohydrate/macrocrystals) 100 mg CAP PO SCH (11:46)
[2022-06-23 11:54] LABS: ABS Eosinophils 0.3 10^3/ul (0-0.6); ABS Lymphocytes 1.3 10^3/ul (1.0-4.8); ABS Monocytes 0.7 10^3/ul (0-0.8); ABS Neutrophils 7.5 10^3/ul (1.5-7.7); Eosinophil % 3.1 %; Lymphocyte % 12.9 %; Mean Platelet Volume 9.5 fL (7.4-10.4); Nucleated Red Blood Cells % 0.1; Platelet Count 176 10^3/uL (150-450)
[2022-06-23 14:20] VITALS: BP 141/59
== END 2022-06-23 13:25 | DRG 299 ==
LOC: ED 19:06 → EDHOLD 06-22 03:07 → SUATTDRO 06-22 03:07 → EDHOLD 06-22 12:05 → MEDTELE 06-22 14:58
PROVIDERS: ADMIT Student in an Organized Health Care Education/Training Program; ATTEND Internal Medicine